=== PATIENT | male | born 1965 ===

== ENCOUNTER 2016-11-04 12:24 | Inpatient (IN) | payer BC, OTHER ==
[2016-11-04 12:24] VITALS: BMI 30.9
--- NOTE | 2016-11-04 13:12 | ED PDOC ---
Arrival/HPI - General Historian: Patient - History of Present Illness Time/Duration: Prior to Arrival Symptom Onset: Gradual Symptom Course: Unchanged <Jay Miller - Last Filed: 11/04/16 14:04> <Collins Christian - Last Filed: 11/04/16 15:01> - General Chief Complaint: Dizziness/Lightheaded Time Seen by Provider: 11/04/16 12:53 - History of Present Illness Narrative History of Present Illness (Text): 54 M with pmh of uncontrolled NIDDM2, Diabetic foot ulcers/p partial amputation , HTN presents with weakness and syncope. Pt states that for the past 2 days he had 2 episodes of passing out than falling forward and hitting his head, and once again when he was working. Pt states that he feels light headed right before he feels like passing out. He denies this occurring before. Pt also c/o rash that he has on his body and legs. No other complaints. Denies any lin, f/c, sob, cp, palpitations, abd pain, n/v/d. 11/04/16 14:04 (Jay Miller) Past Medical History - Provider Review Nursing Documentation Reviewed: Yes - Infectious Disease Hx of Infectious Diseases: None - Tetanus Immunization Tetanus Immunization: Up to Date - Cardiac Hx Hypertension: Yes - Pulmonary Hx Respiratory Disorders: No - Neurological Hx Neurological Disorder: No - HEENT Hx HEENT Disorder: No - Renal Hx Renal Disorder: No - Endocrine/Metabolic Hx Diabetes Mellitus Type 2: Yes - Hematological/Oncological Hx Blood Disorders: No - Integumentary Hx Dermatological Disorder: No - Musculoskeletal/Rheumatological Hx Musculoskeletal Disorders: No Hx Falls: No - Gastrointestinal Hx Gastrointestinal Disorders: No - Genitourinary/Gynecological Hx Genitourinary Disorders: No - Psychiatric Hx Psychophysiologic Disorder: No Hx Anxiety: No Hx Bipolar Disorder: No Hx Depression: No Hx Emotional Abuse: No Hx Hallucinations: No Hx Panic Disorder: No Hx Post Traumatic Stress Disorder: No Hx Psychosis: No Hx Physical Abuse: No Hx Schizophrenia: No Hx Sexual Abuse: No Hx Substance Use: No - Past Surgical History Past Surgical History: No Previous - Surgical History Hx Amputation: Yes (Left Great toe) - Anesthesia Hx Anesthesia: Yes Hx Anesthesia Reactions: No Hx Malignant Hyperthermia: No - Suicidal Assessment Feels Threatened In Home Enviroment: No <Jay Miller - Last Filed: 11/04/16 14:04> Family/Social History Family/Social History: Diabetes Smoking Status: Never Smoked Hx Alcohol Use: Yes Hx Substance Use: No Hx Substance Use Treatment: No <ValeriokingsJay - Last Filed: 11/04/16 14:04> Allergies/Home Meds <Suzanne Millera - Last Filed: 11/04/16 14:04> <JohnathanstevenCollins - Last Filed: 11/04/16 15:01> Allergies/Adverse Reactions: Allergies No Known Allergies Allergy (Verified 11/04/16 12:28) Review of Systems - Physician Review All systems were reviewed & negative as marked: Yes - Review of Systems Constitutional: Fatigue Respiratory: absent: SOB, Cough Cardiovascular: absent: Chest Pain, Palpitations Neurological: Dizziness <Jay Miller - Last Filed: 11/04/16 14:04> Physical Exam Temperature: Afebrile Pulse: Tachycardic Respiratory Rate: Normal Appearance: Positive for: Well-Appearing, Non-Toxic, Comfortable Pain Distress: None Mental Status: Positive for: Alert and Oriented X 3 Finger Stick Blood Glucose: 221 - Systems Exam Head: Present: Atraumatic, Normocephalic Pupils: Present: PERRL Extroacular Muscles: Present: EOMI Conjunctiva: Present: Normal Mouth: Present: Moist Mucous Membranes Neck: Present: Normal Range of Motion Respiratory/Chest: Present: Clear to Auscultation, Good Air Exchange. No: Respiratory Distress, Accessory Muscle Use, Wheezes, Rales Cardiovascular: Present: Regular Rate and Rhythm, Normal S1, S2, Tachycardic. No: Murmurs Abdomen: Present: Normal Bowel Sounds. No: Tenderness, Distention, Peritoneal Signs Upper Extremity: Present: Normal Inspection. No: Cyanosis, Edema Lower Extremity: Present: Normal Inspection. No: Edema Neurological: Present: GCS=15, CN II-XII Intact, Speech Normal Skin: Present: Warm, Dry, Rashes (diffuse pruritic rash over his body, some ecchymosis of his calfs ), Normal Color Psychiatric: Present: Alert, Oriented x 3, Normal Insight, Normal Concentration <RonaldobennettJay - Last Filed: 11/04/16 14:04> Medical Decision Making <Jay Miller - Last Filed: 11/04/16 14:04> <Collins Christian - Last Filed: 11/04/16 15:01> ED Course and Treatment: Impression: 54 M with pmh of uncontrolled NIDDM2, Diabetic foot ulcers/p partial amputation, HTN presents with weakness and syncope. Differential Diagnosis included but are not limited to: syncope / weakness / unlikely seizure Plan: - CBC, CMP, cardiac iso - Head CT - CXR - Reassess and disposition Progress Notes: EKG: Ordered, reviewed, and independently interpreted the EKG. Rate : 109 BPM Rhythm : sinus tachycardia Interpretation : Cannot rule out anterior infarct, age undetermined. Comparison : No previous EKG for comparison. 11/04/16 13:57 CXR - No active disease Head CT - No acute findings 11/04/16 14:04 (Jay Miller) 11/04/16 14:57 Patient seen and examined with resident Came up with treatment and disposition plan with resident 51-year-old male with history of diabetes, presents to the ER with multiple syncopal episodes. patient has no focal neurological deficits on examination. Case discussed with Dr. Bahena, agrees with telemetry observation for further workup Patient aware of and agrees with plan (Collins Christian) - Lab Interpretations Lab Results: 11/04/16 13:20 11/04/16 13:20 Lab Results 11/04/16 13:20: Sodium 134, Potassium 4.3, Chloride 102, Carbon Dioxide 26, Anion Gap 10, BUN 18, Creatinine 1.8 H, Est GFR ( Amer) 48, Est GFR (Non- Af Amer) 40, Random Glucose 238 H, Calcium 8.3 L, Total Bilirubin 0.9, AST 17, ALT 21, Alkaline Phosphatase 76, Lactate Dehydrogenase 487, Total Creatine Kinase 56, Troponin I 0.07 D, Total Protein 6.4, Albumin 3.1, Globulin 3.3, Albumin/Globulin Ratio 0.9 L 11/04/16 13:20: WBC 7.0, RBC 4.61, Hgb 14.0, Hct 40.0 L, MCV 86.8, MCH 30.4, MCHC 35.0, RDW 13.3, Plt Count 197, MPV 11.4 H, Gran % 79.9 H, Lymph % (Auto) 10.4 L, [place] % (Auto) 9.5 H, Eos % (Auto) 0.1 L, Baso % (Auto) 0.1, Gran # 5.62 , Lymph # 0.7 L, [place] # 0.7 H, Eos # 0.0, Baso # 0.01 - RAD Interpretation Radiology Orders: 11/04/16 13:07 HEAD W/O CONTRAST [CT] Stat CHEST PORTABLE [RAD] Stat - Medication Orders Current Medication Orders: Sodium Chloride (Sodium Chloride 0.9%) 1,000 mls @ 1,000 mls/hr IV .Q1H STA Stop: 11/04/16 15:51 Discontinued Medications Acetaminophen (Tylenol 325mg Tab) Confirm Administered Dose 975 mg .ROUTE .STK- MED ONE Stop: 11/04/16 14:38 Disposition/Present on Arrival - Present on Arrival History of DVT/PE: No History of Uncontrolled Diabetes: Yes Urinary Catheter: No History of Decub. Ulcer: No History Surgical Site Infection Following: None <Jay Miller - Last Filed: 11/04/16 14:04> - Present on Arrival Any Indicators Present on Arrival: No - Disposition Have Diagnosis and Disposition been Completed?: Yes Disposition Time: 15:00 Patient Plan: Observation <Collins Christian - Last Filed: 11/04/16 15:01> - Disposition Diagnosis: Syncope Disposition: HOSPITALIZED Patient Problems: Current Active Problems Problem Status Onset Syncope Acute Condition: FAIR Discharge Instructions (ExitCare): Syncope (ED)
[2016-11-04 13:26] LABS: ADD MANUAL DIFF? NO
[2016-11-04 13:35] LABS: BASO # 0.01 K/mm3 (0.0-2.0); BASO % 0.1 % (0.0-3.0); EOS % 0.1 % (1.5-5.0); GRAN # 5.62 (1.4-6.5); GRAN % 79.9 % (50.0-68.0); LYMPH # 0.7 (1.2-3.4); LYMPH % 10.4 % (22.0-35.0); MEAN CELL VOLUME 86.8 fL (80.0-105.0); MEAN CORPUSCULAR HEMOGLOBIN 30.4 pg (25.0-35.0); MEAN PLATELET VOLUME 11.4 fl (7.0-11.0); MONO # 0.7 (0.1-0.6); MONO % 9.5 % (1.0-6.0); PLATELET COUNT 197 10^3/uL (120.0-450.0); RED CELL DISTRIBUTION WIDTH 13.3 % (11.5-14.5)
--- NOTE | 2016-11-04 13:37 | CT ---
PROCEDURE: CT HEAD WITHOUT CONTRAST. HISTORY: syncope COMPARISON: None available. TECHNIQUE: Axial computed tomography images were obtained through the head/brain without intravenous contrast. Radiation dose: Total exam DLP = 677 mGy-cm. This CT exam was performed using one or more of the following dose reduction techniques: Automated exposure control, adjustment of the mA and/or kV according to patient size, and/or use of iterative reconstruction technique. FINDINGS: HEMORRHAGE: No intracranial hemorrhage. BRAIN: No mass effect or edema. No atrophy or chronic microvascular ischemic changes. VENTRICLES: Unremarkable. No hydrocephalus. CALVARIUM: There is a small scalp hematoma in the right parietal region PARANASAL SINUSES: Unremarkable as visualized. No significant inflammatory changes. MASTOID AIR CELLS: Unremarkable as visualized. No inflammatory changes. OTHER FINDINGS: None. IMPRESSION: No acute findings
--- NOTE | 2016-11-04 13:47 | RAD ---
HISTORY: near syncope COMPARISON: 07/10/2016 FINDINGS: LUNGS: No active pulmonary disease. PLEURA: No significant pleural effusion identified, no pneumothorax apparent. CARDIOVASCULAR: Normal. OSSEOUS STRUCTURES: No significant abnormalities. VISUALIZED UPPER ABDOMEN: Normal. OTHER FINDINGS: None. IMPRESSION: No active disease.
[2016-11-04 14:16] LABS: ALB/GLOB RATIO 0.9 (1.1-1.8); BILIRUBIN,TOTAL 0.9 mg/dL (0.2-1.3); CALCIUM 8.3 mg/dL (8.4-10.5); POTASSIUM 4.3 mmol/L (3.6-5.0); TOTAL PROTEIN 6.4 g/dL (5.8-8.3)
[2016-11-04 14:27] LABS: TROPONIN I 0.07 ng/mL
[2016-11-04] MEDS ORDERED: Sodium Chloride 0.9% 1,000 ML IV STA (14:52)
--- NOTE | 2016-11-04 15:43 | CP.PCM.HP ---
<Horacio Mahoney - Last Filed: 11/04/16 16:33> History of Present Illness - History of Present Illness History of Present Illness: 51M with pmh of DM and HTN presents to the ED with 3 episodes of lightheadedness and falls since Thursday, 3 days ago. He denies loss of consciousness, tongue biting or urinary incontinence. He also complains of a maculopapular rash over his body that started 2 weeks ago. There is no tunneling and many of the sores are at different levels of healing. In the ED, head CT, Chest Xray, and EKG did not have any signs of acute injury. Pt. also complained of nausea, vomiting, heart palpitations and joint pain in all his extremities. Pt. denies changes in vision/hearing, neck pain, chest pain, no GI/ symptoms or back pain PMHx: Uncontrolled NIDDM2, Diabetic foot ulcers/p partial amputation, HTN PSHx: Partial amputation L great toe SocialHx: Denies tob, drug use and socially drinks. 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 absent: Decreased Hearing Nose/Mouth/Throat: absent: Epistaxis, Nasal Congestion, Hoarsness, Sore Throat, Neck Pain - Cardiovascular Cardiovascular: absent: Chest Pain, Chest Pain at Rest, Dyspnea, Irregular Heart Rhythm - Respiratory Respiratory: absent: Cough, Dyspnea, Hemoptysis, Chest Congestion - Gastrointestinal Gastrointestinal: Nausea, Vomiting. absent: Abdominal Pain, Coffee Ground Emesis, Dysphagia, Fecal Incontinence, Heartburn - Genitourinary Genitourinary: absent: Difficulty Urinating, Dysuria, Hematuria, Pyuria, Urinary Incontinence - Musculoskeletal Musculoskeletal: Arthralgias. absent: Back Pain, Muscle Weakness, Numbness, Tingling - Integumentary Integumentary: Dry Skin, Rash, Skin Pain, Sores, Wounds. absent: Swelling - Neurological Neurological: absent: Abnormal Speech, Behavioral Changes, Dizziness, Loss of Vision, Syncope, Tingling, Weakness - Endocrine Endocrine: Cold Intolorance, Heat Intolorance, Palpitations. 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 Alcohol: Social Drugs: Denies Home Situation {Lives}: With Family - CARDIAC Hx Hypertension: Yes - PULMONARY Hx Respiratory Disorders: No - NEUROLOGICAL Hx Neurological Disorder: No - HEENT Hx HEENT Problems: No - RENAL Hx Chronic Kidney Disease: No - ENDOCRINE/METABOLIC Hx Diabetes Mellitus Type 2: Yes - HEMATOLOGICAL/ONCOLOGICAL Hx Blood Disorders: No - INTEGUMENTARY Hx Dermatological Problems: No - MUSCULOSKELETAL/RHEUMATOLOGICAL Hx Musculoskeletal Disorders: No Hx Falls: No - GASTROINTESTINAL Hx Gastrointestinal Disorders: No - GENITOURINARY/GYNECOLOGICAL Hx Genitourinary Disorders: No - PSYCHIATRIC Hx Psychophysiologic Disorder: No Hx Anxiety: No Hx Bipolar Disorder: No Hx Depression: No Hx Emotional Abuse: No Hx Hallucinations: No Hx Panic Symptoms: No Hx Post Traumatic Stress Disorder: No Hx Psychosis: No Hx Physical Abuse: No Hx Schizophrenia: No Hx Sexual Abuse: No Hx Substance Use: No - SURGICAL HISTORY Hx Amputation: Yes (Left Great toe) - ANESTHESIA Hx Anesthesia: Yes Hx Anesthesia Reactions: No Hx Malignant Hyperthermia: No Meds Allergies/Adverse Reactions: Allergies Allergy/AdvReac Type Severity Reaction Status Date / Time No Known Allergies Allergy Verified 11/04/16 12:28 Physical Exam - Constitutional Appears: No Acute Distress - Head Exam Head Exam: ATRAUMATIC, NORMAL INSPECTION - Eye Exam Eye Exam: EOMI, Normal appearance - ENT Exam ENT Exam: Mucous Membranes Moist - Neck Exam Neck exam: Positive for: Full Rom. Negative for: Lymphadenopathy, Thyromegaly - Respiratory Exam Respiratory Exam: Clear to Auscultation Bilateral, NORMAL BREATHING PATTERN. absent: Rhonchi, Wheezes - Cardiovascular Exam Cardiovascular Exam: REGULAR RHYTHM, +S1, +S2. absent: JVD - GI/Abdominal Exam GI & Abdominal Exam: Normal Bowel Sounds, Soft. absent: Tenderness - Extremities Exam Extremities exam: Positive for: full ROM, normal capillary refill, normal inspection, pedal pulses present. Negative for: joint swelling, pedal edema, tenderness - Back Exam Back exam: CVA tenderness (R) - Neurological Exam Neurological exam: Alert, CN II-XII Intact, Oriented x3 - Psychiatric Exam Psychiatric exam: Normal Affect, Normal Mood - Skin Skin Exam: Erythema, Petechiae, Rash Results - Vital Signs Recent Vital Signs: Last Vital Signs Temp 100 F H 11/04/16 12:26 Pulse 121 H 11/04/16 12:26 Resp 18 11/04/16 12:26 BP 120/77 11/04/16 12:26 Pulse Ox 100 11/04/16 12:26 - Labs Result Diagrams: 11/04/16 13:20 11/04/16 13:20 Assessment & Plan - Assessment and Plan (Free Text) Assessment: 51M with complaints of dizzyness with fall, no LOC and full body maculopapular rash. Plan: Maculopapular Rash -Permethrin Cream -Benedryl -ID Consult - Dr. Cota -Procalcitonin lvl ordered -Blood Culture x2 -Urine Culture -UA Dizzyness/Fall -Head CT - please see full report -no acute findings -IV NS 100ml/hr -Carotid Doppler -Echocardiogram from 07/08 Normal -EKG tachycardia, -Orthostatic vitals ordered -UDS -Alcohol lvl HTN -continue Lisinopril -monitor vitals Diabetes -ISS Medium -Accuchecks ACHS Right Flank Pain -CT abdomen -UA Mediastinal Pain -CT Chest PPX -DVT - Lovenox -Nausea - Zofran -GI Protonix - Date & Time Date: 11/04/16 Time: 16:00 <Breana Posey - Last Filed: 11/05/16 16:34> Results - Vital Signs Recent Vital Signs: Last Vital Signs Temp 99.3 F 11/05/16 08:00 Pulse 95 H 11/05/16 08:00 Resp 20 11/05/16 08:00 BP 141/85 11/05/16 08:00 Pulse Ox 95 11/05/16 08:00 - Labs Result Diagrams: 11/05/16 07:00 11/05/16 07:00 Labs: Laboratory Results - last 24 hr 11/04/16 11/04/16 11/04/16 16:20 16:20 18:10 WBC RBC Hgb Hct MCV MCH MCHC RDW Plt Count MPV Gran % Lymph % (Auto) [place] % (Auto) Eos % (Auto) Baso % (Auto) Gran # Lymph # [place] # Eos # Baso # Sodium Potassium Chloride Carbon Dioxide Anion Gap BUN Creatinine Est GFR ( Amer) Est GFR (Non-Af Amer) POC Glucose (mg/dL) Random Glucose Calcium Total Bilirubin AST ALT Alkaline Phosphatase Total Protein Albumin Globulin Albumin/Globulin Ratio Procalcitonin 0.35 Urine Color Urine Appearance Urine pH Ur Specific [place] Urine Protein Urine Glucose (UA) Urine Ketones Urine Blood Urine Nitrate Urine Bilirubin Urine Urobilinogen Ur Leukocyte Esterase Urine RBC Urine WBC Ur Epithelial Cells Urine Bacteria Urine Opiates Screen Negative Urine Methadone Screen Negative Ur Barbiturates Screen Negative Ur Phencyclidine Scrn Negative Ur Amphetamines Screen Negative U Benzodiazepines Scrn Negative U Oth Cocaine Metabols Positive H U Cannabinoids Screen Negative Alcohol, Quantitative < 10 11/04/16 11/04/16 11/05/16 18:10 20:59 07:00 WBC 6.3 RBC 4.25 Hgb 12.6 L Hct 36.8 L MCV 86.6 MCH 29.6 MCHC 34.2 RDW 13.1 Plt Count 201 MPV 11.3 H Gran % 70.3 H Lymph % (Auto) 15.1 L [place] % (Auto) 13.0 H Eos % (Auto) 1.4 L Baso % (Auto) 0.2 Gran # 4.43 Lymph # 1.0 L [place] # 0.8 H Eos # 0.1 Baso # 0.01 Sodium Potassium Chloride Carbon Dioxide Anion Gap BUN Creatinine Est GFR ( Amer) Est GFR (Non-Af Amer) POC Glucose (mg/dL) 280 H Random Glucose Calcium Total Bilirubin AST ALT Alkaline Phosphatase Total Protein Albumin Globulin Albumin/Globulin Ratio Procalcitonin Urine Color Yellow Urine Appearance Clear Urine pH 6.5 Ur Specific [place] 1.020 Urine Protein >=300 H Urine Glucose (UA) 250 H Urine Ketones Negative Urine Blood Moderate H Urine Nitrate Negative Urine Bilirubin Negative Urine Urobilinogen 1.0 H Ur Leukocyte Esterase Negative Urine RBC 1 - 3 Urine WBC 1 - 3 Ur Epithelial Cells 3 - 4 Urine Bacteria Neg Urine Opiates Screen Urine Methadone Screen Ur Barbiturates Screen Ur Phencyclidine Scrn Ur Amphetamines Screen U Benzodiazepines Scrn U Oth Cocaine Metabols U Cannabinoids Screen Alcohol, Quantitative 11/05/16 11/05/16 11/05/16 07:00 07:31 11:15 WBC RBC Hgb Hct MCV MCH MCHC RDW Plt Count MPV Gran % Lymph % (Auto) [place] % (Auto) Eos % (Auto) Baso % (Auto) Gran # Lymph # [place] # Eos # Baso # Sodium 136 Potassium 4.2 Chloride 103 Carbon Dioxide 26 Anion Gap 11 BUN 16 Creatinine 1.6 H Est GFR ( Amer) 55 Est GFR (Non-Af Amer) 45 POC Glucose (mg/dL) 211 H 278 H Random Glucose 212 H Calcium 7.9 L Total Bilirubin 0.6 AST 19 ALT 28 Alkaline Phosphatase 70 Total Protein 6.3 Albumin 2.9 L Globulin 3.4 Albumin/Globulin Ratio 0.9 L Procalcitonin Urine Color Urine Appearance Urine pH Ur Specific [place] Urine Protein Urine Glucose (UA) Urine Ketones Urine Blood Urine Nitrate Urine Bilirubin Urine Urobilinogen Ur Leukocyte Esterase Urine RBC Urine WBC Ur Epithelial Cells Urine Bacteria Urine Opiates Screen Urine Methadone Screen Ur Barbiturates Screen Ur Phencyclidine Scrn Ur Amphetamines Screen U Benzodiazepines Scrn U Oth Cocaine Metabols U Cannabinoids Screen Alcohol, Quantitative Attending/Attestation - Attestation I have personally seen and examined this patient.: Yes I have fully participated in the care of the patient.: Yes I have reviewed all pertinent clinical information: Yes Notes (Text): 11/05/16 16:29 attending note; Patient seen and examined With resident in ER. Patient is a 51 year old male with pmh of DM and HTN presents to the ED with 3 episodes of lightheadedness and falls since Thursday. no obvious injury noted. No tongue bite, no urinary incontinence no loss of consciousness. CT head is negative. Patient is complaining of subjective fevers and chills for the past 2 days. patient also a generalized itchy maculopapular rash for the past 2 weeks. permitherin treatment ordered. ID evaluation requested. dizziness can be secondary to poor by mouth intake. diabetes and hypertension; hold medications for now. restart tomorrow. acute renal failure; pre renal secondary to poor po intake. started on IVF. upon discharge the patient [place] [facility] [place]
[2016-11-04] MEDS: Sodium Chloride 0.9% 1,000 ML IV SCH (16:49)
[2016-11-04] MEDS: Insulin Reg-MEDIUM-Coverage SC SCH ×2 (16:50→21:29)
[2016-11-04] MEDS ORDERED: Insulin Regular 1 UNITS/0.01 ML ML ONE (16:53)
--- NOTE | 2016-11-04 17:49 | CT ---
PROCEDURE: CT Chest, Abdomen and Pelvis without intravenous contrast HISTORY: mediastinal pain on palpation, right flank pain COMPARISON: 04/07/2012. CT abdomen and pelvis TECHNIQUE: Unenhanced study. Neither oral nor intravenous contrast administered. This CT exam was performed using one or more of the following dose reduction techniques: Automated exposure control, adjustment of the mA and/or kV according to patient size, and/or use of iterative reconstruction technique. Total exam DLP = 1338.91 mGy-cm. FINDINGS: CT CHEST WITHOUT CONTRAST: LUNGS: Clear. No nodule, mass or consolidation. MEDIASTINUM: Unremarkable. Normal caliber aorta and pulmonary arterial trunk. Normal size heart. LYMPH NODES: Small bilateral axillary lymph nodes. No significant lymphadenopathy hilar and mediastinal regions. PLEURA: Unremarkable. No pneumothorax. No pleural fluid. BONES: Unremarkable. OTHER FINDINGS: None. CT ABDOMEN AND PELVIS: LIVER: Unremarkable. No gross lesion or ductal dilatation. GALLBLADDER AND BILE DUCTS: Unremarkable. PANCREAS: Unremarkable. No gross lesion or ductal dilatation. SPLEEN: Unremarkable. ADRENALS: Unremarkable. No mass. KIDNEYS AND URETERS: Unremarkable. No hydronephrosis. No solid mass. Right kidney: Mild dilatation of the collecting system and ureter. Left kidney: Moderate dilatation of left collecting system and ureter, a chronic finding identified on the prior CT scan 04/07/2012. VASCULATURE: Unremarkable. No aortic aneurysm. BOWEL: Unremarkable. No obstruction. No gross mural thickening. APPENDIX: Normal appendix. PERITONEUM: Unremarkable. No free fluid. No free air. LYMPH NODES: Unremarkable. No enlarged lymph nodes. BLADDER: Unremarkable. REPRODUCTIVE: Unremarkable. BONES: No acute fracture. OTHER FINDINGS: None. IMPRESSION: No acute findings related to/accounting for the clinical presentation. No significant interval change compared to the prior examination(s). Incidental finding(s): Bilateral hydronephrosis, hydroureter left greater than right unchanged compared to 04/07/2012.
[2016-11-04] MEDS: Permethrin 5% Cream(60 gm) TOP ONE ×2 (17:54→18:16)
[2016-11-04] MEDS ORDERED: cefTRIAXone 1 gm 1 GM/100 ML BAG IVPB STA (18:46)
[2016-11-04 18:54] LABS: PH,URINE 6.5 (4.7-8.0); URINE BILIRUBIN NEGATIVE (NEGATIVE); URINE BLOOD MODERATE (NEGATIVE); URINE GLUCOSE (UA) 250 mg/dL (NEGATIVE); URINE KETONE NEGATIVE (NEGATIVE); URINE LEUKOCYTE ESTERASE NEGATIVE Leu/uL (NEGATIVE); URINE PROTEIN >=300 mg/dL (<30 mg/dL)
[2016-11-04 19:13] LABS: URINE APPEARANCE CLEAR (CLEAR); URINE COLOR YELLOW (YELLOW)
[2016-11-04 19:27] LABS: URINE BACTERIA NEG (NEG)
--- NOTE | 2016-11-04 22:30 | CARD ---
APPROVED REPORT EKG Measurement Heart [id number] <Conclusion> Sinus tachycardia Cannot rule out Anterior infarct, age undetermined Abnormal ECG
[2016-11-04] MEDS ORDERED: Pneumococcal 23-Valent Vaccine IM ONE (22:40)
[2016-11-05] MEDS ORDERED: Pantoprazole 40 mg EC Tab PO SCH (06:30)
[2016-11-05 07:40] LABS: ADD MANUAL DIFF? NO
[2016-11-05 07:55] LABS: ALB/GLOB RATIO 0.9 (1.1-1.8); BILIRUBIN,TOTAL 0.6 mg/dL (0.2-1.3); CALCIUM 7.9 mg/dL (8.4-10.5); POTASSIUM 4.2 mmol/L (3.6-5.0); TOTAL PROTEIN 6.3 g/dL (5.8-8.3)
[2016-11-05 07:56] LABS: BASO # 0.01 K/mm3 (0.0-2.0); BASO % 0.2 % (0.0-3.0); EOS # 0.1 (0.0-0.7); EOS % 1.4 % (1.5-5.0); GRAN # 4.43 (1.4-6.5); GRAN % 70.3 % (50.0-68.0); HEMATOCRIT 36.8 % (42.0-52.0); LYMPH % 15.1 % (22.0-35.0); MEAN CELL VOLUME 86.6 fL (80.0-105.0); MEAN CORPUSCULAR HEMOGLOBIN 29.6 pg (25.0-35.0); MEAN CORPUSCULAR HGB CONC 34.2 g/dl (31.0-37.0); MEAN PLATELET VOLUME 11.3 fl (7.0-11.0); MONO # 0.8 (0.1-0.6); PLATELET COUNT 201 10^3/uL (120.0-450.0); RED CELL DISTRIBUTION WIDTH 13.1 % (11.5-14.5); WHITE BLOOD COUNT 6.3 10^3/ul (4.5-11.0)
[2016-11-05] MEDS: Insulin Reg-MEDIUM-Coverage SC SCH ×4 (08:45→21:48)
--- NOTE | 2016-11-05 09:56 | CP.PCM.PN ---
<Horacio Mahoney - Last Filed: 11/05/16 17:12> Subjective - Date & Time of Evaluation Date of Evaluation: 11/05/16 Time of Evaluation: 07:45 - Subjective Subjective: 51M with pmh of DM and HTN presented to the ED with 3 episodes of lightheadedness and falls since Thursday and maculopapular rash covering his body , sparing his face. Today, pt. states he is feelin better and that his rash is improving. 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 Pt. denies changes in vision/hearing, neck pain, chest pain, difficulty breathing, GI/ symptoms or back pain. Objective - Vital Signs/Intake and Output Vital Signs (last 24 hours): Temp Pulse Resp BP Pulse Ox 98.6 F 93 H 18 158/86 H 99 11/04/16 22:32 11/04/16 22:32 11/04/16 22:32 11/04/16 22:32 11/04/16 19:38 Intake and Output: 11/05/16 11/05/16 06:59 18:59 Intake Total 720 Balance 720 - Medications Medications: Current Medications Acetaminophen (Tylenol 325mg Tab) 650 mg PO Q6H PRN PRN Reason: Fever >100.4 F Diphenhydramine HCl (Benadryl) 25 mg PO Q6 PRN PRN Reason: Itching / Pruritus Last Admin: 11/04/16 18:39 Dose: 25 mg Enoxaparin Sodium (Lovenox) 40 mg SC DAILY [facility] PRN Reason: Protocol Sodium Chloride (Sodium Chloride 0.9%) 1,000 mls @ 100 mls/hr IV .Q10H [facility] Last Admin: 11/04/16 16:49 Dose: 100 mls/hr Insulin Human Regular (Humulin R Med) 0 units SC ACHS [facility] PRN Reason: Protocol Last Admin: 11/04/16 21:29 Dose: Not Given Ondansetron HCl (Zofran Inj) 4 mg IVP Q6 PRN PRN Reason: Nausea/Vomiting Pantoprazole Sodium (Protonix Ec Tab) 40 mg PO 0630 [facility] Last Admin: 11/05/16 06:32 Dose: Not Given - Labs Labs: 11/05/16 07:00 11/05/16 07:00 - Constitutional Appears: Non-toxic, No Acute Distress - Head Exam Head Exam: ATRAUMATIC, NORMOCEPHALIC - Eye Exam Eye Exam: EOMI - ENT Exam ENT Exam: Mucous Membranes Moist, Normal Exam - Respiratory Exam Respiratory Exam: Clear to Ausculation Bilateral, NORMAL BREATHING PATTERN - Cardiovascular Exam Cardiovascular Exam: REGULAR RHYTHM, +S1, +S2. absent: JVD - GI/Abdominal Exam GI & Abdominal Exam: Soft, Normal Bowel Sounds. absent: Tenderness - Extremities Exam Extremities Exam: Full ROM. absent: Joint Swelling, Pedal Edema, Tenderness - Back Exam Back Exam: CVA tenderness (R), rash noted. absent: CVA tenderness (L), paraspinal tenderness - Neurological Exam Neurological Exam: Alert, Awake, Oriented x3 - Psychiatric Exam Psychiatric exam: Normal Affect, Normal Mood - Skin Skin Exam: Erythema, Petechiae, Rash, Urticaria Assessment and Plan - Assessment and Plan (Free Text) Assessment: 51M with complaints of dizziness with fall, no LOC and full body maculopapular rash, sparing his face. Plan: Maculopapular Rash -Permethrin Cream -Benedryl -ID Consult - Dr. Cota -help appreciated -topical steroids -cont current mgmt -Procalcitonin .35 normal -Blood Culture x2 received -Urine Culture received Dizziness/Fall -Head CT - please see full report -no acute findings -IV NS 100ml/hr -Carotid Doppler - ordered -Echocardiogram from 07/08 Normal -EKG tachycardia, -Troponin neg x1 -Orthostatic vitals negative -UDS postive for cocaine, pt. still denies -HIV ordered -Alcohol lvl <10, negative HTN -continue Lisinopril -monitor vitals Diabetes -ISS Medium -Accuchecks ACHS Right Flank Pain -CT abdomen - please see full report -Bilateral hydronephrosis L > R, unchanged from 2012 CT -UA positive for protein, glucose, blood, and urobilnogen -Urology Consult - Dr. Zeke Sparrow -recs appreciated Mediastinal Pain -CT Chest - please see full report -no acute pathology seen Headache - Tylenol prn PPX -DVT - Lovenox -Nausea - Zofran -GI Protonix -PT Eval/Tx <Michael Poseya - Last Filed: 11/05/16 17:29> Objective - Vital Signs/Intake and Output Vital Signs (last 24 hours): Temp Pulse Resp BP Pulse Ox 99.3 F 95 H 20 141/85 95 11/05/16 08:00 11/05/16 17:01 11/05/16 08:00 11/05/16 17:01 11/05/16 08:00 Intake and Output: 11/05/16 11/05/16 06:59 18:59 Intake Total 720 800 Output Total 300 Balance 720 500 - Medications Medications: Current Medications Acetaminophen (Tylenol 325mg Tab) 650 mg PO Q6H PRN PRN Reason: Fever >100.4 F Amlodipine Besylate (Norvasc) 5 mg PO DAILY [facility] Last Admin: 11/05/16 17:01 Dose: 5 mg Diphenhydramine HCl (Benadryl) 25 mg PO Q6 PRN PRN Reason: Itching / Pruritus Last Admin: 11/04/16 18:39 Dose: 25 mg Enoxaparin Sodium (Lovenox) 40 mg SC DAILY [facility] PRN Reason: Protocol Last Admin: 11/05/16 11:47 Dose: 40 mg Glipizide (Glucotrol) 10 mg PO DAILY [facility] Last Admin: 11/05/16 17:00 Dose: 10 mg Hydrocortisone (Cortizone 0.5%) 0 ea TOP BID [facility] Last Admin: 11/05/16 13:22 Dose: 1 applic Sodium Chloride (Sodium Chloride 0.9%) 1,000 mls @ 100 mls/hr IV .Q10H [facility] Last Admin: 11/05/16 17:10 Dose: 100 mls/hr Insulin Human Regular (Humulin R Med) 0 units SC ACHS [facility] PRN Reason: Protocol Last Admin: 11/05/16 17:00 Dose: 5 units Meclizine HCl (Antivert) 12.5 mg PO DAILY [facility] Last Admin: 11/05/16 13:23 Dose: 12.5 mg Metformin HCl (Glucophage) 1,000 mg PO BID [facility] Ondansetron HCl (Zofran Inj) 4 mg IVP Q6 PRN PRN Reason: Nausea/Vomiting Pantoprazole Sodium (Protonix Ec Tab) 40 mg PO 0630 [facility] Last Admin: 11/05/16 06:32 Dose: Not Given - Labs Labs: 11/05/16 07:00 11/05/16 07:00 Attending/Attestation - Attestation I have personally seen and examined this patient.: Yes I have fully participated in the care of the patient.: Yes I have reviewed all pertinent clinical information, including history, physical exam and plan: Yes Notes (Text): 11/05/16 17:25 Attending note; Patient seen and examined With resident. Patient is a 51 year old male with pmh of DM and HTN presents to the ED with 3 episodes of lightheadedness and falls since Thursday. dizziness is improving. no orthostatic blood pressure changes noted. physical therapy evaluation requested. patient also a generalized itchy maculopapular rash for the past 2 weeks. rash is improving. Continue topical steroids. permitherin treatment given. ID evaluation appreciated. blood cultures negative so far. diabetes and hypertension; continue home medications. acute renal failure; improved significantly. started on IVF. CT abdomen and pelvis showed chronic hydronephrosis unchanged. Will refer to urology. upon discharge the patient will follow-up with [facility] [place] clinic. 11/05/16 17:28
[2016-11-05] MEDS ORDERED: Enoxaparin 40 mg Syringe SC SCH (10:00)
[2016-11-05 10:21] VITALS: BP 141/85; PULSE 95; RESP 20
[2016-11-05] MEDS: Hydrocortisone 0.5% Cream(30 gm) TOP SCH ×2 (13:22→21:48)
[2016-11-05] MEDS: Sodium Chloride 0.9% 1,000 ML IV SCH (17:10)
[2016-11-05 17:45] VITALS: TEMP 98.4; O2SAT 97
--- NOTE | 2016-11-06 15:50 | CON ---
DATE: 11/06/2016 In 577, bed 2, [facility]. The patient was seen earlier this morning. REASON FOR CONSULTATION: Rash all over the body. HISTORY OF PRESENT ILLNESS: The patient is a 51-year-old male who has history of chronic bilateral h ydronephrosis who comes in complaining of lightheadedness for the past 3 days as well as a pruritic m aculopapular rash on different parts of his trunk and extremities, which started about a couple of we eks ago and continues to bother him. According to the patient, the patient works as someone who [employer] for different buildings in [place] as well as in [facility], but otherwise has not traveled outside of these areas in the past 3 months. He also denies any animal contacts, has not b een swimming in [place] or been camping in wooded areas. The patient lives with his and 2 daught ers and apparently they are well and without any rash. The patient also denies fever or chills. No blurring of vision, no headache or dizziness. No nausea or vomiting. No odynophagia or dysphagia. No sore throat, no rhinorrhea, no cough, no shortness of breath, no chest pain, no abdominal pain, no diarrhea, no dysuria, no hematuria. Because of the rash, infectious disease consult was requested t o further evaluate . REVIEW OF SYSTEMS: As per history of present illness. PAST MEDICAL HISTORY: As per history of present illness. FAMILY MEDICAL HISTORY: Noncontributory. PERSONAL AND SOCIAL HISTORY: The patient denies alcohol abuse or illicit drug use. OBJECTIVE: VITAL SIGNS: The patient is afebrile, blood pressure 130/80, respiratory rate of 16, heart rate of 8 4. HEAD AND NECK: Normocephalic, atraumatic. No meningismus present. HEART: S1 and S2 are normal. LUNGS: Decreased breath sounds bilaterally without any rales. ABDOMEN: Soft, nontender, nondistended. SKIN: There are noted areas of excoriated papules and areas of patchy maculopapular rash over the tr unk and extremities, not very confluent. Although erythematous, not brick red. LABORATORIES: We are able to review the labs on the patient from yesterday. WBC count of 6.3, plate lets of 201. BUN is 15, creatinine is 1.6. CAT scan of the abdomen and pelvis shows chronic bilateral hydronephrosis. ASSESSMENT: We have a 51-year-old male with a history of chronic bilateral hydronephrosis, coming in with a maculopapular rash. We need to rule out scabies in this patient as well as rule out irritant dermatitis. PLAN: We have discussed this with the medical team and the patient has been given permethrin cream y esterday with some clinical improvement. We have also recommended the patient to be on topical stero ids and oral antihistamines for this patient and we will continue to monitor this patient while the p [facility] is in the hospital. Shailesh Cota M.D. cc: [id number] TT: 11/06/2016 15:50:33 Confirmation # [id number] Dictation # [id number]
--- NOTE | 2016-11-06 17:07 | US ---
PROCEDURE: Bilateral carotid artery duplex ultrasound HISTORY: Carotid stenosis syncope PHYSICIAN(S): Jamil Gibbs MD. TECHNIQUE: Duplex sonography and color-flow Doppler were used to evaluate the carotid bifurcations and limited segments of the vertebral arteries bilaterally. FINDINGS: There is mild smooth heterogeneous plaque noted at the carotid bifurcations bilaterally. The peak systolic velocity in the proximal right internal carotid artery is 84 cm/sec. This corresponds to a 20 to 39% proximal right ICA stenosis. Normal systolic velocities are noted in the proximal right external carotid artery. There is antegrade flow in the right vertebral artery. The peak systolic velocity in the proximal left internal carotid artery is 89 cm/sec. This corresponds to a 20 to 39% proximal left ICA stenosis. Normal systolic velocities are noted in the proximal left external carotid artery. There is antegrade flow in the left vertebral artery. IMPRESSION: 1. Bilateral 20-39% proximal ICA stenoses. 2. Antegrade flow in both vertebral arteries.
--- NOTE | 2016-11-06 21:18 | CP.PCM.DIS ---
<Horacio Mahoney - Last Filed: 11/07/16 23:26> Provider - Provider Date of Admission: 11/04/16 15:00 Attending physician: Breana Posey MD Primary care physician: NO PRIMARY CARE PROVIDER Time Spent in preparation of Discharge (in minutes): 35 Hospital Course - Lab Results Lab Results: Micro Results 11/04/16 18:10 Urine Urine Culture - Final No Growth (<1,000 CFU/ML) 11/04/16 16:30 Blood Blood Culture - Preliminary NO GROWTH AFTER 48 HOURS 11/04/16 16:20 Blood Blood Culture - Preliminary NO GROWTH AFTER 48 HOURS Most Recent Lab Values WBC 6.3 10^3/ul (4.5-11.0) 11/05/16 07:00 RBC 4.25 10^6/uL (3.5-6.1) 11/05/16 07:00 Hgb 12.6 gm/dL (14.0-18.0) L 11/05/16 07:00 Hct 36.8 % (42.0-52.0) L 11/05/16 07:00 MCV 86.6 fL (80.0-105.0) 11/05/16 07:00 MCH 29.6 pg (25.0-35.0) 11/05/16 07:00 MCHC 34.2 g/dl (31.0-37.0) 11/05/16 07:00 RDW 13.1 % (11.5-14.5) 11/05/16 07:00 Plt Count 201 10^3/uL (120.0-450.0) 11/05/16 07:00 MPV 11.3 fl (7.0-11.0) H 11/05/16 07:00 Gran % 70.3 % (50.0-68.0) H 11/05/16 07:00 Lymph % (Auto) 15.1 % (22.0-35.0) L 11/05/16 07:00 Fleming % (Auto) 13.0 % (1.0-6.0) H 11/05/16 07:00 Eos % (Auto) 1.4 % (1.5-5.0) L 11/05/16 07:00 Baso % (Auto) 0.2 % (0.0-3.0) 11/05/16 07:00 Gran # 4.43 (1.4-6.5) 11/05/16 07:00 Lymph # 1.0 (1.2-3.4) L 11/05/16 07:00 Fleming # 0.8 (0.1-0.6) H 11/05/16 07:00 Eos # 0.1 (0.0-0.7) 11/05/16 07:00 Baso # 0.01 K/mm3 (0.0-2.0) 11/05/16 07:00 Sodium 136 mmol/L (132-148) 11/05/16 07:00 Potassium 4.2 mmol/L (3.6-5.0) 11/05/16 07:00 Chloride 103 mmol/L (98-107) 11/05/16 07:00 Carbon Dioxide 26 mmol/L (21-33) 11/05/16 07:00 Anion Gap 11 (10-20) 11/05/16 07:00 BUN 16 mg/dL (7-21) 11/05/16 07:00 Creatinine 1.6 mg/dL (0.5-1.4) H 11/05/16 07:00 Est GFR ( Amer) 55 11/05/16 07:00 Est GFR (Non-Af Amer) 45 11/05/16 07:00 POC Glucose (mg/dL) 104 mg/dL (65-110) 11/06/16 07:46 Random Glucose 212 mg/dL (70-110) H 11/05/16 07:00 Calcium 7.9 mg/dL (8.4-10.5) L 11/05/16 07:00 Total Bilirubin 0.6 mg/dL (0.2-1.3) 11/05/16 07:00 AST 19 U/L (15-59) 11/05/16 07:00 ALT 28 U/L (7-56) 11/05/16 07:00 Alkaline Phosphatase 70 U/L (38-133) 11/05/16 07:00 Lactate Dehydrogenase 487 U/L (333-699) 11/04/16 13:20 Total Creatine Kinase 56 U/L (35-230) 11/04/16 13:20 Troponin I 0.07 ng/mL D 11/04/16 13:20 Total Protein 6.3 g/dL (5.8-8.3) 11/05/16 07:00 Albumin 2.9 g/dL (3.0-4.8) L 11/05/16 07:00 Globulin 3.4 gm/dL 11/05/16 07:00 Albumin/Globulin Ratio 0.9 (1.1-1.8) L 11/05/16 07:00 Procalcitonin 0.35 NG/ML (0.19-0.49) 11/04/16 16:20 Urine Color Yellow (YELLOW) 11/04/16 18:10 Urine Appearance Clear (CLEAR) 11/04/16 18:10 Urine pH 6.5 (4.7-8.0) 11/04/16 18:10 Ur Specific [place] 1.020 (1.005-1.035) 11/04/16 18:10 Urine Protein >=300 mg/dL (<30 mg/dL) H 11/04/16 18:10 Urine Glucose (UA) 250 mg/dL (NEGATIVE) H 11/04/16 18:10 Urine Ketones Negative mg/dL (NEGATIVE) 11/04/16 18:10 Urine Blood Moderate (NEGATIVE) H 11/04/16 18:10 Urine Nitrate Negative (NEGATIVE) 11/04/16 18:10 Urine Bilirubin Negative (NEGATIVE) 11/04/16 18:10 Urine Urobilinogen 1.0 E.U./dL (<1 E.U./dL) H 11/04/16 18:10 Ur Leukocyte Esterase Negative Lamin/uL (NEGATIVE) 11/04/16 18:10 Urine RBC 1 - 3 /hpf (0-2) 11/04/16 18:10 Urine WBC 1 - 3 /hpf (0-6) 11/04/16 18:10 Ur Epithelial Cells 3 - 4 /hpf (0-5) 11/04/16 18:10 Urine Bacteria Neg (NEG) 11/04/16 18:10 Urine Opiates Screen Negative (NEGATIVE) 11/04/16 18:10 Urine Methadone Screen Negative (NEGATIVE) 11/04/16 18:10 Ur Barbiturates Screen Negative (NEGATIVE) 11/04/16 18:10 Ur Phencyclidine Scrn Negative (NEGATIVE) 11/04/16 18:10 Ur Amphetamines Screen Negative (NEGATIVE) 11/04/16 18:10 U Benzodiazepines Scrn Negative (NEGATIVE) 11/04/16 18:10 U Oth Cocaine Metabols Positive (NEGATIVE) H 11/04/16 18:10 U Cannabinoids Screen Negative (NEGATIVE) 11/04/16 18:10 Alcohol, Quantitative < 10 mg/dL (0-10) 11/04/16 16:20 - Hospital Course Hospital Course: 51M with pmh of DM and HTN presents to the ED with 3 episodes of lightheadedness and falls for 3 days and maculopapular rash for 3 weeks. In the ED, head CT, Chest Xray, and EKG did not have any signs of acute injury. He also received IV fluids and was started on him home medications for DM and HTN. For his rash pt. was given Permethrin cream, Benedryl and topical steroids. Final urine and blood cultures were negative. After several days his rash improved markedly. For his dizziness, he was prescribed Meclizine, which helped. On day of discharge, pt. was ambulating well with no dizziness or gait instability. This is a brief account of his stay. For more information, please consult his chart. - Date & Time of H&P Date of H&P: 11/06/16 Time of H&P: 08:45 Discharge Exam - Head Exam Head Exam: ATRAUMATIC, NORMOCEPHALIC - Eye Exam Eye Exam: EOMI, Normal appearance - ENT Exam ENT Exam: Mucous Membranes Moist - Neck Exam Neck exam: Full Rom - Respiratory Exam Respiratory Exam: Clear to PA & Lateral, NORMAL BREATHING PATTERN, UNREMARKABLE - Cardiovascular Exam Cardiovascular Exam: REGULAR RHYTHM, +S1, +S2. absent: JVD - GI/Abdominal Exam GI & Abdominal Exam: Normal Bowel Sounds, Unremarkable - Rectal Exam Rectal Exam: NORMAL INSPECTION - Extremities Exam Extremities exam: full ROM, pedal pulses present - Neurological Exam Neurological exam: Alert, CN II-XII Intact, Normal Gait, Oriented x3, Reflexes Normal - Psychiatric Exam Psychiatric exam: Normal Affect, Normal Mood - Skin Skin Exam: Dry, Intact, Normal Color, Warm Discharge Plan - Follow Up Plan Condition: FAIR Disposition: HOME/ ROUTINE Additional Instructions: Pt. is medically stable for discharge. Please follow up with your primary care doctor within 1 week. Please follow up with your urologist, Dr. Paul Sparrow within 1 week. Thank you for allowing us to take part in your care. Referrals: PCP,NO [Primary Care Provider] - Minesh Sparrow MD [Staff Provider] - Shailesh Cota MD [Staff Provider] - <Breana Posey - Last Filed: 11/08/16 13:41> Provider - Provider Date of Admission: 11/04/16 16:19 Attending physician: Breana Posey MD Primary care physician: CECE PRIMARY CARE PROVIDER Hospital Course - Lab Results Lab Results: Micro Results 11/04/16 16:30 Blood Blood Culture - Preliminary NO GROWTH AFTER 3 DAYS 11/04/16 16:20 Blood Blood Culture - Preliminary NO GROWTH AFTER 3 DAYS 11/04/16 18:10 Urine Urine Culture - Final No Growth (<1,000 CFU/ML) Most Recent Lab Values WBC 6.9 10^3/ul (4.5-11.0) 11/06/16 07:00 RBC 4.18 10^6/uL (3.5-6.1) 11/06/16 07:00 Hgb 12.5 gm/dL (14.0-18.0) L 11/06/16 07:00 Hct 36.0 % (42.0-52.0) L 11/06/16 07:00 MCV 86.1 fL (80.0-105.0) 11/06/16 07:00 MCH 29.9 pg (25.0-35.0) 11/06/16 07:00 MCHC 34.7 g/dl (31.0-37.0) 11/06/16 07:00 RDW 13.1 % (11.5-14.5) 11/06/16 07:00 Plt Count 238 10^3/uL (120.0-450.0) 11/06/16 07:00 MPV 11.7 fl (7.0-11.0) H 11/06/16 07:00 Gran % 70.3 % (50.0-68.0) H 11/05/16 07:00 Lymph % (Auto) 15.1 % (22.0-35.0) L 11/05/16 07:00 Fleming % (Auto) 13.0 % (1.0-6.0) H 11/05/16 07:00 Eos % (Auto) 1.4 % (1.5-5.0) L 11/05/16 07:00 Baso % (Auto) 0.2 % (0.0-3.0) 11/05/16 07:00 Gran # 4.43 (1.4-6.5) 11/05/16 07:00 Lymph # 1.0 (1.2-3.4) L 11/05/16 07:00 Fleming # 0.8 (0.1-0.6) H 11/05/16 07:00 Eos # 0.1 (0.0-0.7) 11/05/16 07:00 Baso # 0.01 K/mm3 (0.0-2.0) 11/05/16 07:00 Sodium 136 mmol/L (132-148) 11/05/16 07:00 Potassium 4.2 mmol/L (3.6-5.0) 11/05/16 07:00 Chloride 103 mmol/L (98-107) 11/05/16 07:00 Carbon Dioxide 26 mmol/L (21-33) 11/05/16 07:00 Anion Gap 11 (10-20) 11/05/16 07:00 BUN 16 mg/dL (7-21) 11/05/16 07:00 Creatinine 1.6 mg/dL (0.5-1.4) H 11/05/16 07:00 Est GFR ( Amer) 55 11/05/16 07:00 Est GFR (Non-Af Amer) 45 11/05/16 07:00 POC Glucose (mg/dL) 104 mg/dL (65-110) 11/06/16 07:46 Random Glucose 212 mg/dL (70-110) H 11/05/16 07:00 Calcium 7.9 mg/dL (8.4-10.5) L 11/05/16 07:00 Total Bilirubin 0.6 mg/dL (0.2-1.3) 11/05/16 07:00 AST 19 U/L (15-59) 11/05/16 07:00 ALT 28 U/L (7-56) 11/05/16 07:00 Alkaline Phosphatase 70 U/L (38-133) 11/05/16 07:00 Lactate Dehydrogenase 487 U/L (333-699) 11/04/16 13:20 Total Creatine Kinase 56 U/L (35-230) 11/04/16 13:20 Troponin I 0.07 ng/mL D 11/04/16 13:20 Total Protein 6.3 g/dL (5.8-8.3) 11/05/16 07:00 Albumin 2.9 g/dL (3.0-4.8) L 11/05/16 07:00 Globulin 3.4 gm/dL 11/05/16 07:00 Albumin/Globulin Ratio 0.9 (1.1-1.8) L 11/05/16 07:00 Procalcitonin 0.35 NG/ML (0.19-0.49) 11/04/16 16:20 Urine Color Yellow (YELLOW) 11/04/16 18:10 Urine Appearance Clear (CLEAR) 11/04/16 18:10 Urine pH 6.5 (4.7-8.0) 11/04/16 18:10 Ur Specific [place] 1.020 (1.005-1.035) 11/04/16 18:10 Urine Protein >=300 mg/dL (<30 mg/dL) H 11/04/16 18:10 Urine Glucose (UA) 250 mg/dL (NEGATIVE) H 11/04/16 18:10 Urine Ketones Negative mg/dL (NEGATIVE) 11/04/16 18:10 Urine Blood Moderate (NEGATIVE) H 11/04/16 18:10 Urine Nitrate Negative (NEGATIVE) 11/04/16 18:10 Urine Bilirubin Negative (NEGATIVE) 11/04/16 18:10 Urine Urobilinogen 1.0 E.U./dL (<1 E.U./dL) H 11/04/16 18:10 Ur Leukocyte Esterase Negative Lamin/uL (NEGATIVE) 11/04/16 18:10 Urine RBC 1 - 3 /hpf (0-2) 11/04/16 18:10 Urine WBC 1 - 3 /hpf (0-6) 11/04/16 18:10 Ur Epithelial Cells 3 - 4 /hpf (0-5) 11/04/16 18:10 Urine Bacteria Neg (NEG) 11/04/16 18:10 Urine Opiates Screen Negative (NEGATIVE) 11/04/16 18:10 Urine Methadone Screen Negative (NEGATIVE) 11/04/16 18:10 Ur Barbiturates Screen Negative (NEGATIVE) 11/04/16 18:10 Ur Phencyclidine Scrn Negative (NEGATIVE) 11/04/16 18:10 Ur Amphetamines Screen Negative (NEGATIVE) 11/04/16 18:10 U Benzodiazepines Scrn Negative (NEGATIVE) 11/04/16 18:10 U Oth Cocaine Metabols Positive (NEGATIVE) H 11/04/16 18:10 U Cannabinoids Screen Negative (NEGATIVE) 11/04/16 18:10 Alcohol, Quantitative < 10 mg/dL (0-10) 11/04/16 16:20 Attending/Attestation - Attestation I have personally seen and examined this patient.: Yes I have fully participated in the care of the patient.: Yes I have reviewed all pertinent clinical information, including history, physical exam and plan: Yes Notes (Text): 11/08/16 13:40 Attending note; Patient seen and examined With resident. Patient is a 51 year old male with pmh of DM and HTN presents to the ED with 3 episodes of lightheadedness and falls since Thursday. dizziness is improving. no orthostatic blood pressure changes noted. patient also a generalized itchy maculopapular rash for the past 2 weeks. rash is improving. Continue topical steroids. permitherin treatment given. ID evaluation appreciated. blood cultures negative so far. diabetes and hypertension; continue home medications. acute renal failure; improved significantly. started on IVF. CT abdomen and pelvis showed chronic hydronephrosis unchanged. Will refer to urology. upon discharge the patient will follow-up with [facility] [place] clinic. Diagnosis; Rash Diabetes Hypertension Acute renal failure Cocaine abuse
[2016-11-07 12:41] LABS: MEAN CELL VOLUME 86.1 fL (80.0-105.0); MEAN CORPUSCULAR HEMOGLOBIN 29.9 pg (25.0-35.0); MEAN CORPUSCULAR HGB CONC 34.7 g/dl (31.0-37.0); MEAN PLATELET VOLUME 11.7 fl (7.0-11.0); RED CELL DISTRIBUTION WIDTH 13.1 % (11.5-14.5); WHITE BLOOD COUNT 6.9 10^3/ul (4.5-11.0)
[2016-11-11 03:26] LABS: BLOOD UREA NITROGEN 14 mg/dL (7-21); GLUCOSE,RANDOM 291 mg/dL (70-110)
[2016-11-11 03:27] LABS: ALB/GLOB RATIO 0.8 (1.1-1.8); ALKALINE PHOSPHATASE 79 U/L (38-133); ALT/SGPT 23 U/L (7-56); AST/SGOT 22 U/L (15-59); BILIRUBIN,TOTAL 0.6 mg/dL (0.2-1.3); CARBON DIOXIDE 24 mmol/L (21-33); CHLORIDE 104 mmol/L (98-107); GFR AFRICAN-AMERICAN > 60; POTASSIUM 4.3 mmol/L (3.6-5.0); SODIUM 135 mmol/L (132-148); TOTAL PROTEIN 6.6 g/dL (5.8-8.3)
== END 2016-11-06 13:39 | disposition home or self-care (01) | DRG 294 ==
LOC: ED 12:24 → ERH 15:00 → OBSVTOIN 16:19 → ERH 17:08 → 5RSO 17:36
PROVIDERS: ADMIT Internal Medicine; ATTEND Internal Medicine
DX: E11.65 Type 2 diabetes mellitus with hyperglycemia (principal); E11.621 Type 2 diabetes mellitus with foot ulcer; L97.509 Non-pressure chronic ulcer of other part of unspecified foot with unspecified severity; N13.30 Unspecified hydronephrosis; I10 Essential (primary) hypertension; R53.1 Weakness; R55 Syncope and collapse; R21 Rash and other nonspecific skin eruption; Z82.49 Family history of ischemic heart disease and other diseases of the circulatory system; Z83.3 Family history of diabetes mellitus; Z87.891 Personal history of nicotine dependence; R00.0 Tachycardia, unspecified; Z91.81 History of falling; Z89.412 Acquired absence of left great toe; R10.9 Unspecified abdominal pain; R07.89 Other chest pain; R42 Dizziness and giddiness

== ENCOUNTER 2016-11-07 11:13 | Inpatient (IN) | payer OTHER ==
[2016-11-07 11:14] VITALS: BMI 30.9
[2016-11-07] MEDS ORDERED: Ciprofloxacin 400mg/200ml D5W 400 MG/200 ML BAG IVPB STA (12:21)
[2016-11-07] MEDS ORDERED: Vancomycin 1gm in NS 250ml 1 GM/250 ML BAG IVPB STA (12:21)
[2016-11-07] MEDS ORDERED: TDAP Vaccine 0.5 mL Syr IM ONE (12:22)
[2016-11-07 13:51] LABS: ADD MANUAL DIFF? NO
[2016-11-07 13:55] LABS: BASO # 0.01 K/mm3 (0.0-2.0); BASO % 0.2 % (0.0-3.0); EOS # 0.2 (0.0-0.7); EOS % 3.2 % (1.5-5.0); GRAN % 70.2 % (50.0-68.0); HEMATOCRIT 36.2 % (42.0-52.0); LYMPH # 1.2 (1.2-3.4); LYMPH % 20.4 % (22.0-35.0); MEAN CELL VOLUME 85.6 fL (80.0-105.0); MEAN CORPUSCULAR HEMOGLOBIN 30.3 pg (25.0-35.0); MEAN CORPUSCULAR HGB CONC 35.4 g/dl (31.0-37.0); MEAN PLATELET VOLUME 11.2 fl (7.0-11.0); MONO # 0.3 (0.1-0.6); PLATELET COUNT 263 10^3/uL (120.0-450.0); RED CELL DISTRIBUTION WIDTH 12.9 % (11.5-14.5); WHITE BLOOD COUNT 5.7 10^3/ul (4.5-11.0)
[2016-11-07 14:04] LABS: ALB/GLOB RATIO 0.8 (1.1-1.8); ALKALINE PHOSPHATASE 80 U/L (38-133); ALT/SGPT 28 U/L (7-56); AST/SGOT 26 U/L (15-59); BILIRUBIN,TOTAL 0.7 mg/dL (0.2-1.3); BLOOD UREA NITROGEN 12 mg/dL (7-21); CALCIUM 8.4 mg/dL (8.4-10.5); CARBON DIOXIDE 24 mmol/L (21-33); CHLORIDE 105 mmol/L (98-107); GFR AFRICAN-AMERICAN > 60; GLUCOSE,RANDOM 231 mg/dL (70-110); POTASSIUM 4.5 mmol/L (3.6-5.0); SODIUM 139 mmol/L (132-148); TOTAL PROTEIN 7.1 g/dL (5.8-8.3)
--- NOTE | 2016-11-07 14:12 | RAD ---
PROCEDURE: Radiographs of the left great toe. Clinical history diabetic foot ulcer TECHNIQUE:: AP radiograph of the left foot, with oblique and lateral view of the left great toe. COMPARISON: 01/08/2015 FINDINGS: BONES: No significant changes with respect to the 1st. No radiographic findings to suggest acute osteomyelitis. JOINTS: Normal. SOFT TISSUES: Increasing tissue swelling 1st digit. Radiopaque foreign body medially interposed between the 1st and 2nd proximal phalanges. This likely represents a small needle fragment. The finding was not apparent previously. Ulcer best seen on the lateral view plantar aspect of the foot. OTHER FINDINGS: None. IMPRESSION: Radiographic findings to suggest acute osteomyelitis. Small radiopaque foreign body/needle fragment plantar aspect left adjacent to the 1st metatarsal. Adjacent small ulcer plantar aspect of the left foot.
[2016-11-07 14:20] LABS: INR 0.97 (0.93-1.08); PARTIAL THROMBOPLASTIN TIME 29.6 Seconds (23.7-30.8)
--- NOTE | 2016-11-07 15:39 | ED PDOC ---
Arrival/HPI - General Chief Complaint: Lower Extremity Problem/Injury Time Seen by Provider: 11/07/16 11:57 Historian: Patient - History of Present Illness Narrative History of Present Illness (Text): 11/07/16 15:34 Patient with past medical history of diabetes and hypertension, presents to the emergency room for redness, swelling, pain and an ulcer to the left great toe which she noticed yesterday when he removed his sock and a piece of the skin had been ripped off of his toe. Patient states that he was discharged from the hospital yesterday for unknown diagnosis however he states that he had mentioned to the doctor that evaluated him that he felt feverish and he was given antibiotics but he doesn't know why. He further adds that he was admitted 4 days ago - may be due to his blood pressure or his diabetes. Patient states that he has no PMD and that he follows up at the clinic, he also asked that he has never seen a network support manager in the past. He states that during his admission at the hospital his toe was not red, swollen or painful. Otherwise: (-) fever, (-) chills, (-) leg pain/swelling, (-) discharge, (-) trauma, (-) N/V/D, (-) abdominal pain, (-) urinary symptoms. PMD clinic Past Medical History - Provider Review Nursing Documentation Reviewed: Yes - Infectious Disease Hx of Infectious Diseases: None - Tetanus Immunization Tetanus Immunization: Up to Date - Cardiac Hx Hypertension: Yes Hx Peripheral Edema: Yes (ble +1) - Pulmonary Hx Respiratory Disorders: No - Neurological Hx Neurological Disorder: No - HEENT Hx HEENT Disorder: No - Renal Hx Renal Disorder: No - Endocrine/Metabolic Hx Diabetes Mellitus Type 2: Yes - Hematological/Oncological Hx Blood Disorders: No - Integumentary Other/Comment: left great toe partial amputation healed dry brown skin, generalized red raised and multiple brown sport to entire body except face c/o constantitch, left outer ankle dry brown wound, eccymosis to calfs - Musculoskeletal/Rheumatological Hx Falls: No - Gastrointestinal Hx Gastrointestinal Disorders: No - Genitourinary/Gynecological Hx Genitourinary Disorders: No - Psychiatric Hx Psychophysiologic Disorder: No Hx Anxiety: No Hx Bipolar Disorder: No Hx Depression: No Hx Emotional Abuse: No Hx Hallucinations: No Hx Panic Disorder: No Hx Post Traumatic Stress Disorder: No Hx Psychosis: No Hx Physical Abuse: No Hx Schizophrenia: No Hx Sexual Abuse: No Hx Substance Use: No - Past Surgical History Past Surgical History: No Previous - Surgical History Hx Amputation: Yes (Left Great toe) - Anesthesia Hx Anesthesia: Yes Hx Anesthesia Reactions: No Hx Malignant Hyperthermia: No - Suicidal Assessment Feels Threatened In Home Enviroment: No Family/Social History - Physician Review Nursing Documentation Reviewed: Yes Family/Social History: No Known Family HX Smoking Status: Never Smoked Hx Alcohol Use: Yes Hx Substance Use: No Hx Substance Use Treatment: No Allergies/Home Meds Allergies/Adverse Reactions: Allergies No Known Allergies Allergy (Verified 11/04/16 12:28) Review of Systems - Review of Systems Constitutional: Normal. absent: Fatigue, Weight Change, Fevers Respiratory: Normal. absent: SOB, Cough, Sputum Cardiovascular: Normal, Syncope (recent hospital admission for syncope). absent : Chest Pain, Palpitations, Edema Gastrointestinal: Normal. absent: Abdominal Pain, Stool Changes, Appetite Changes Musculoskeletal: Normal. absent: Arthralgias, Back Pain Skin: Normal, Rash. absent: Pruritis, Skin Lesions Neurological: Normal. absent: Headache, Dizziness, Focal Weakness Physical Exam - Physical Exam Narrative Physical Exam (Text): 11/07/16 15:40 GENERAL APPEARANCE: Patient is awake, alert, oriented x 3, in no acute distress. SKIN: Warm, dry; (-) cyanosis, (-) rash. (-) Decubitus Ulcer EYES: (-) conjunctival pallor, (-) scleral icterus, (-) conjunctival hemorrhage. ENMT: Mucous membranes moist. Airway patent: (-) stridor. Pharynx: (-) erythema, (-) exudate. NECK: (-) tenderness, (-) stiffness, (-) meningismus, (-) lymphadenopathy. CHEST AND RESPIRATORY: (-) accessory muscle use. Lungs: (-) rales, (-) rhonchi, (-) wheezes, (-) rub; breath sounds equal bilaterally. HEART AND CARDIOVASCULAR: (-) irregularity; (-) murmur, (-) gallop, (-) rub. ABDOMEN AND GI: Soft; (-) tenderness, (-) guarding; (-) organomegaly; (-) mass ; (-) CVA tenderness. EXTREMITIES: (+) tender, erythematous, edematous, warm to touch with 3x3 cm shallow ulcer to the distal tip of the L great toe, with (-) discharge, (-) deformity; (-) cellulitis, (-) lymphangitis; (-) subungual hemorrhage; (-) edema. NEURO AND PSYCH: Mental status as above; (-) focal findings. 11/07/16 15:41 Vital Signs Temp Pulse Resp BP Pulse Ox 11/07/16 16:48 81 16 98 11/07/16 15:14 78 16 152/86 H 99 11/07/16 11:24 98.5 F 97 H 16 141/97 H 98 Medical Decision Making ED Course and Treatment: 11/07/16 15:41 51 yo M w/ PMH of DM and HTN, presents with infected ulcer to the L great toe. Patient's last emergency room visit reviewed, patient was admitted for syncope, during that admission he had a CT head which was negative, his CBC during the entire admission showed a normal white count, and he had normal blood cultures, ID consult was obtained, however there is no documentation regarding an ulcer to his left great toe. Plan: -- Labs -- IV fluids -- Wound culture -- Cipro / Vancomycin -- Tdap -- XR L great toe -- Reassess and disposition Labs reviewed, WBC is normal. XR reviewed. Blood cultures not sent as the patient had recent blood cultures that were negative, he is afebrile at this time and his WBCs has been normal during his recent admission and today. XR L great toe: (+) amputation of the distal phalanx, (+) metallic FB noted proximal to the base of the 2nd phalanx. Diagnostic results discussed with the patient. On re-evaluation, patient is resting comfortably in bed in no acute distress, has no other complaints at this time, denies any fever or chills. PE is unchanged otherwise. Case d/w Dr. Posey, who was the last MD who admitted the patient. She agrees with current plan for inpatient admission, as the patient will likely need wound debridement and appropriate antibiotic therapy. Patient states he fully agrees with and understands further plan of care. He verbalized understanding of his present diagnosis, DM foot ulcer. I have given the patient opportunity to ask any additional questions. - Lab Interpretations Lab Results: 11/07/16 13:00 11/07/16 13:00 Lab Results 11/07/16 13:00: Alcohol, Quantitative < 10 11/07/16 13:00: Sodium 139, Potassium 4.5, Chloride 105, Carbon Dioxide 24, Anion Gap 15, BUN 12, Creatinine 1.2, Est GFR ( Amer) > 60, Est GFR (Non- Af Amer) > 60, Random Glucose 231 H, Calcium 8.4, Total Bilirubin 0.7, AST 26, ALT 28, Alkaline Phosphatase 80, Total Protein 7.1, Albumin 3.2, Globulin 3.9, Albumin/Globulin Ratio 0.8 L 11/07/16 13:00: PT 10.5, INR 0.97, APTT 29.6 11/07/16 13:00: WBC 5.7, RBC 4.23, Hgb 12.8 L, Hct 36.2 L, MCV 85.6, MCH 30.3, MCHC 35.4, RDW 12.9, Plt Count 263, MPV 11.2 H, Gran % 70.2 H, Lymph % (Auto) 20.4 L, [place] % (Auto) 6.0, Eos % (Auto) 3.2, Baso % (Auto) 0.2, Gran # 4.00, Lymph # 1.2, [place] # 0.3, Eos # 0.2, Baso # 0.01 - RAD Interpretation Radiology Orders: 11/07/16 12:21 FOOT LEFT GREAT TOE ROUTINE [RAD] Stat - Medication Orders Current Medication Orders: Famotidine (Pepcid) 40 mg PO [facility] Glipizide (Glucotrol) 10 mg PO DAILY [facility] Last Admin: 11/07/16 18:20 Dose: 10 mg Piperacillin Sod/Tazobactam Sod (Zosyn 3.375 In Ns 100ml) 100 mls @ 200 mls/hr IVPB Q6 [facility] PRN Reason: Protocol Stop: 11/15/16 18:01 Last Admin: 11/07/16 18:21 Dose: 200 mls/hr Insulin Human Regular (Humulin R Low) 0 units SC ACHS [facility] PRN Reason: Protocol Last Admin: 11/07/16 18:21 Dose: Lisinopril (Zestril) 10 mg PO DAILY [facility] Last Admin: 11/07/16 18:20 Dose: 10 mg Metformin HCl (Glucophage) 1,000 mg PO BID [facility] Last Admin: 11/07/16 18:20 Dose: 1,000 mg Discontinued Medications Ciprofloxacin (Cipro 400mg/200ml Dsw) 400 mg in 200 mls @ 133.3 mls/hr IVPB STAT [facility] PRN Reason: Protocol Stop: 11/07/16 13:51 Last Admin: 11/07/16 15:13 Dose: 133.3 mls/hr Vancomycin HCl (Vancomycin 1gm) 1 gm in 250 mls @ 167 mls/hr IVPB STAT [facility] PRN Reason: Protocol Stop: 11/07/16 13:50 Last Admin: 11/07/16 13:38 Dose: 167 mls/hr Tetanus/Reduced Diphtheria/Acell Pertussis (Boostrix Vaccine Inj) 0.5 ml IM .ONCE ONE Stop: 11/07/16 12:23 Last Admin: 11/07/16 14:11 Dose: 0.5 ml - PA / POLE CLASSIFIER / Resident Statement / has reviewed & agrees with the documentation as recorded. Disposition/Present on Arrival - Present on Arrival Any Indicators Present on Arrival: No History of DVT/PE: No History of Uncontrolled Diabetes: No Urinary Catheter: No History of Decub. Ulcer: No History Surgical Site Infection Following: None - Disposition Have Diagnosis and Disposition been Completed?: Yes Diagnosis: Diabetic foot ulcer Disposition: HOSPITALIZED Disposition Time: 15:30 Patient Plan: Admission Patient Problems: Current Active Problems Problem Status Onset Diabetic foot ulcer Acute Condition: STABLE
[2016-11-07] MEDS ORDERED: Insulin Reg-LOW-Coverage SC SCH (16:30)
--- NOTE | 2016-11-07 17:34 | CP.PCM.HP ---
<Horacio Mahoney - Last Filed: 11/07/16 20:41> History of Present Illness - History of Present Illness History of Present Illness: 51M who was recently discharged for dizziness and maculopapular rash covering his body which had resolved presented to the ED with complaint of a foot ulcer on the anterior/inferior left great toe. Pt was unable to see this ulcer due to the fact that he could not see it and has decreased feeling in the distal half of his left foot compared to his right, despite having normal pulses. When he took his sock off, it pulled on his skin and his toe started to bleed. Pt. denies headaches, fevers, chills vision/hearing loss, neck pain, chest pain, difficulty breathing, abdominal pain, nausea, vomiting, diarrhea, any GI/ symptoms or back pain. PMHx: Uncontrolled NIDDM2, Diabetic foot ulcer s/p partial amputation, HTN PSHx: Partial amputation L great toe SocialHx: Denies tob, drug use and socially drinks. 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 FamilyHx: Mom had DM and CAD Allergies:NKDA HomeMeds: Glipizide, Metformin, Lisinopril Present on Admission - Present on Admission Any Indicators Present on Admission: Yes History of Uncontrolled Diabetes: Yes Review of Systems - Constitutional Constitutional: absent: Chills, Fever, Headache - EENT Eyes: absent: Blind Spots, Change in Vision Ears: absent: Decreased Hearing Nose/Mouth/Throat: absent: Hoarsness, Sore Throat - Cardiovascular Cardiovascular: absent: Chest Pain, Chest Pain at Rest, Dyspnea, Edema, Palpitations - Respiratory Respiratory: absent: Cough, Dyspnea, Hemoptysis, Dyspnea on Exertion - Gastrointestinal Gastrointestinal: absent: Abdominal Pain, Diarrhea, Nausea, Vomiting - Genitourinary Genitourinary: absent: Dysuria, Flank Pain - Musculoskeletal Musculoskeletal: Deformity. absent: Back Pain, Muscle Weakness, Tingling - Integumentary Integumentary: Rash (maculopapular rash that is healing) - Neurological Neurological: Sensory Deficit (decreased sensation distal half of left foot). absent: Headaches - Psychiatric Psychiatric: absent: Depression, Irritability Past Patient History - Infectious Disease Hx of Infectious Diseases: None - Tetanus Immunizations Tetanus Immunization: Up to Date - Past Social History Smoking Status: Never Smoked Chewing Tobacco Use: No Cigar Use: No Alcohol: Social Drugs: Denies Home Situation {Lives}: With Family - CARDIAC Hx Hypertension: Yes Hx Peripheral Edema: Yes (ble +1) - PULMONARY Hx Respiratory Disorders: No - NEUROLOGICAL Hx Neurological Disorder: Yes Hx Dizziness: Yes (resolved after Meclizine and Hydration) - HEENT Hx HEENT Problems: No - RENAL Hx Chronic Kidney Disease: No - ENDOCRINE/METABOLIC Hx Diabetes Mellitus Type 2: Yes - HEMATOLOGICAL/ONCOLOGICAL Hx Blood Disorders: No - INTEGUMENTARY Other/Comment: left great toe partial amputation healed dry brown skin, generalized red raised and multiple brown sport to entire body except face c/o constantitch, left outer ankle dry brown wound, eccymosis to calfs - MUSCULOSKELETAL/RHEUMATOLOGICAL Hx Falls: No - GASTROINTESTINAL Hx Gastrointestinal Disorders: No - GENITOURINARY/GYNECOLOGICAL Hx Genitourinary Disorders: No - PSYCHIATRIC Hx Psychophysiologic Disorder: No Hx Anxiety: No Hx Bipolar Disorder: No Hx Depression: No Hx Emotional Abuse: No Hx Hallucinations: No Hx Panic Symptoms: No Hx Post Traumatic Stress Disorder: No Hx Psychosis: No Hx Physical Abuse: No Hx Schizophrenia: No Hx Sexual Abuse: No Hx Substance Use: No - SURGICAL HISTORY Hx Amputation: Yes (Left Great toe) - ANESTHESIA Hx Anesthesia: Yes Hx Anesthesia Reactions: No Hx Malignant Hyperthermia: No Meds Allergies/Adverse Reactions: Allergies Allergy/AdvReac Type Severity Reaction Status Date / Time No Known Allergies Allergy Verified 11/04/16 12:28 Physical Exam - Constitutional Appears: Non-toxic, No Acute Distress - Head Exam Head Exam: ATRAUMATIC, NORMOCEPHALIC - Eye Exam Eye Exam: EOMI, Normal appearance - ENT Exam ENT Exam: Mucous Membranes Moist - Neck Exam Neck exam: Positive for: Full Rom. Negative for: Lymphadenopathy - Respiratory Exam Respiratory Exam: Clear to Auscultation Bilateral, NORMAL BREATHING PATTERN - Cardiovascular Exam Cardiovascular Exam: REGULAR RHYTHM, RRR. absent: JVD - GI/Abdominal Exam GI & Abdominal Exam: Normal Bowel Sounds, Soft. absent: Tenderness - Extremities Exam Extremities exam: Positive for: full ROM, pedal pulses present. Negative for: joint swelling Additional comments: left great toe ulcer on anterior/inferior surface. Partial amputation of the left great toe - Back Exam Back exam: FULL ROM. absent: CVA tenderness (L), CVA tenderness (R) - Neurological Exam Neurological exam: Alert, CN II-XII Intact, Normal Gait, Oriented x3 - Psychiatric Exam Psychiatric exam: Normal Affect, Normal Mood - Skin Skin Exam: Rash (healing maculo-papular rash) Results - Vital Signs Recent Vital Signs: Last Vital Signs Temp 98.5 F 11/07/16 11:24 Pulse 81 11/07/16 16:48 Resp 16 11/07/16 16:48 BP 152/86 H 11/07/16 15:14 Pulse Ox 98 11/07/16 16:48 - Labs Result Diagrams: 11/07/16 13:00 11/07/16 13:00 Assessment & Plan - Assessment and Plan (Free Text) Assessment: 51M with left great toe ulcer likely 2/2 to uncontrolled DM Plan: Left Great Toe Ulceration -Fluids -Vancomycin -Zosyn -Wound Culture and Gram Stain -Xray - Left foot - findings suggest acute osteomyelitis - small radiopaque foregign body/needle fragment plantar aspect left adjacent to the 1st metatarsal -Podiatry Consult - Dr. Beaulieu - help appreciated -ID Consult - Dr. Cota - help appreciated Diabetes -Continue Metformin 1000mg PO BID -Continue Glipizide 10mg PO daily -ISS Low AC LISA Hypertension -Zestril 10mg PO daily -UDS PPX -GI - Pepcid -DVT - SCD's - Date & Time Date: 11/07/16 Time: 04:00 <Breana Posey - Last Filed: 11/08/16 14:40> Results - Vital Signs Recent Vital Signs: Last Vital Signs Temp 97.7 F 11/08/16 08:00 Pulse 85 11/08/16 09:51 Resp 11/08/16 08:00 BP 135/89 11/08/16 09:51 Pulse Ox 99 11/08/16 08:00 - Labs Result Diagrams: 11/08/16 07:25 11/08/16 07:25 Labs: Laboratory Results - last 24 hr 11/08/16 11/08/16 07:25 07:25 WBC 5.8 RBC 4.05 Hgb 11.9 L Hct 34.6 L MCV 85.4 MCH 29.4 MCHC 34.4 RDW 13.0 Plt Count 267 MPV 10.8 Gran % 65.3 Lymph % (Auto) 21.8 L [place] % (Auto) 8.0 H Eos % (Auto) 4.7 Baso % (Auto) 0.2 Gran # 3.78 Lymph # 1.3 [place] # 0.5 Eos # 0.3 Baso # 0.01 Sodium 139 Potassium 3.8 Chloride 107 Carbon Dioxide 25 Anion Gap 11 BUN 12 Creatinine 1.4 Est GFR ( Amer) > 60 Est GFR (Non-Af Amer) 53 Random Glucose 125 H Calcium 7.9 L Total Bilirubin 0.7 AST 26 ALT 34 Alkaline Phosphatase 64 Total Protein 5.9 Albumin 2.8 L Globulin 3.1 Albumin/Globulin Ratio 0.9 L Attending/Attestation - Attestation I have personally seen and examined this patient.: Yes I have fully participated in the care of the patient.: Yes I have reviewed all pertinent clinical information: Yes Notes (Text): 11/08/16 14:37 Attending note; Patient seen and examined with the resident in ER. Patient is a 51-year-old male with a past medical history of diabetes, toe amputation, rash is admitted with injury to the left foot and open wound. X-ray showed possible osteomyelitis. Admit the patient to [facility] floor. Started on Zosyn and got 1 dose of vancomycin. ID evaluation requested. History of acute kidney injury in the past; monitor creatinine closely. Diabetes; continue metformin and glipizide. Dietary education given. We'll follow up with podiatry closely. Upon discharge the patient will follow-up with [facility] clinic.
[2016-11-07] MEDS: Piperacillin/Tazobact 3.375 gm 100 ML IVPB SCH (18:21)
[2016-11-07] MEDS ORDERED: Pneumococcal 23-Valent Vaccine IM ONE (21:27)
[2016-11-07] MEDS: Insulin Reg-LOW-Coverage SC SCH (22:35)
[2016-11-08] MEDS: Piperacillin/Tazobact 3.375 gm 100 ML IVPB SCH ×5 (00:02→23:34)
[2016-11-08 07:28] LABS: ADD MANUAL DIFF? NO
[2016-11-08 07:34] LABS: BASO # 0.01 K/mm3 (0.0-2.0); BASO % 0.2 % (0.0-3.0); EOS # 0.3 (0.0-0.7); EOS % 4.7 % (1.5-5.0); GRAN # 3.78 (1.4-6.5); GRAN % 65.3 % (50.0-68.0); HEMATOCRIT 34.6 % (42.0-52.0); LYMPH # 1.3 (1.2-3.4); LYMPH % 21.8 % (22.0-35.0); MEAN CELL VOLUME 85.4 fL (80.0-105.0); MEAN CORPUSCULAR HEMOGLOBIN 29.4 pg (25.0-35.0); MEAN CORPUSCULAR HGB CONC 34.4 g/dl (31.0-37.0); MEAN PLATELET VOLUME 10.8 fl (7.0-11.0); MONO # 0.5 (0.1-0.6); PLATELET COUNT 267 10^3/uL (120.0-450.0); WHITE BLOOD COUNT 5.8 10^3/ul (4.5-11.0)
[2016-11-08 07:44] LABS: ALB/GLOB RATIO 0.9 (1.1-1.8); ALKALINE PHOSPHATASE 64 U/L (38-133); ALT/SGPT 34 U/L (7-56); AST/SGOT 26 U/L (15-59); BILIRUBIN,TOTAL 0.7 mg/dL (0.2-1.3); BLOOD UREA NITROGEN 12 mg/dL (7-21); CALCIUM 7.9 mg/dL (8.4-10.5); CARBON DIOXIDE 25 mmol/L (21-33); CHLORIDE 107 mmol/L (98-107); GFR AFRICAN-AMERICAN > 60; GLUCOSE,RANDOM 125 mg/dL (70-110); POTASSIUM 3.8 mmol/L (3.6-5.0); SODIUM 139 mmol/L (132-148); TOTAL PROTEIN 5.9 g/dL (5.8-8.3)
[2016-11-08] MEDS: Insulin Reg-LOW-Coverage SC SCH ×4 (08:25→22:09)
--- NOTE | 2016-11-08 09:43 | CON ---
DATE: 11/08/2016 A 51-year-old diabetic male seen at bedside for consultation, evaluation and management of a recent l eft great toe ulceration. The patient states he was in the hospital recently and had no issues with his left great toe. However, when he went home, he realized that his toe was bleeding and presented to the Emergency Room. PAST MEDICAL HISTORY: Significant for longstanding uncontrolled type 2 diabetes with profound periph eral neuropathy and essential hypertension. PAST SURGICAL HISTORY: Significant for partial left great toe amputation. ALLERGIES: The patient has no known drug allergies. MEDICATIONS: Include fosinopril, glipizide and metformin. SOCIAL HISTORY: The patient denies illicit drug use. Does not use tobacco products and very rarely has alcoholic beverages. FAMIILY HISTORY: Significant for diabetes and heart disease. VITAL SIGNS: Taken today reveal a temperature of 98.5, pulse rate of 78, blood pressure of 152/86 an d respiratory rate of 16. Microbiology report taken yesterday in the ER shows rare gram-positive cocci preliminarily with sensi tivities to follow. X-ray report reveals a small metallic fragment, most likely the tip of a needle at the first left interspace which is insignificant to his ulceration. However, the x-ray is negativ e for acute osteomyelitis. OBJECTIVE: Palpable pedal pulses noted bilaterally. The patient is unable to detect 5.07 gram monof ilament wire testing bilaterally. Decreased pedal hair growth noted bilaterally. Capillary filling time is within normal limits. 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 Left great hallux is noted to be partially amputated and there is a full thickness ulc eration at the distal aspect of the hallux with severe overlying hyperkeratotic tissue. There is not ed to be some purulent drainage emanating from the ulceration. Upon excisional debridement of all hy perkeratotic tissue, there is an underlying full thickness ulceration that is a mixture of granular a nd fibrotic tissue and the wound does probe to bone. ASSESSMENT: Full thickness diabetic ulceration to the left plantar hallux. PLAN AND TREATMENT: Given the fact that there is a metallic shard in his left foot and that the woun d does probe to bone, we will order a bone scan in lieu of an MRI at this point to rule out the prese nce of acute osteomyelitis of the proximal phalanx. Excisional debridement was performed at bedside which revealed probing to bone and the wound was cleansed with normal sterile saline and application of a dry sterile dressing was applied. Upon excisional debridement, profuse bleeding was evident ind icative of adequate circulation. Culture and sensitivity was taken and submitted. Recommend immedia te infectious disease consult to evaluate cultures and sensitivities. We will await bone scan result s and plan accordingly. The patient will be seen and followed daily. Saeed Vera DPM cc: [id number] TT: 11/08/2016 09:43:21 Confirmation # [id number] Dictation # [id number] tn
--- NOTE | 2016-11-08 11:47 | CP.PCM.PN ---
Subjective - Date & Time of Evaluation Date of Evaluation: 11/08/16 Time of Evaluation: 09:00 - Subjective Subjective: patient seen and examined in room 572. patient is alert, awake and oriented. Denies Any fevers, chills. Denies any abdominal pain, nausea, vomiting. Denied any urinary symptoms. Tolerating diet well. Complaining of left big toe swelling Review of Systems - Constitutional Constitutional: absent: Fever, Chills - EENT Eyes: absent: Blurred Vision Nose/Mouth/Throat: absent: Nasal Congestion - Cardiovascular Cardiovascular: absent: Chest Pain, Chest Pain at Rest - Respiratory Respiratory: absent: Cough, Dyspnea, Dyspnea on Exertion - Gastrointestinal Gastrointestinal: absent: Abdominal Pain, Vomiting - Musculoskeletal Additional comments: left Big toe swelling - Neurological Neurological: absent: Abnormal Movements - Psychiatric Psychiatric: absent: Anxiety, Depression - Hematologic/Lymphatic Hematologic: absent: Easy Bleeding, Easy Bruising Objective - Vital Signs/Intake and Output Vital Signs (last 24 hours): Temp Pulse Resp BP Pulse Ox 97.7 F 85 20 135/89 99 11/08/16 08:00 11/08/16 09:51 11/08/16 08:00 11/08/16 09:51 11/08/16 08:00 Intake and Output: 11/08/16 11/08/16 06:59 18:59 Intake Total 480 Balance 480 - Medications Medications: Current Medications Famotidine (Pepcid) 40 mg PO HS [facility] Last Admin: 11/07/16 22:35 Dose: Not Given Glipizide (Glucotrol) 10 mg PO DAILY [facility] Last Admin: 11/08/16 09:52 Dose: 10 mg Piperacillin Sod/Tazobactam Sod (Zosyn 3.375 In Ns 100ml) 100 mls @ 200 mls/hr IVPB Q6 [facility] PRN Reason: Protocol Stop: 11/15/16 18:01 Last Admin: 11/08/16 06:06 Dose: 200 mls/hr Insulin Human Regular (Humulin R Low) 0 units SC ACHS [facility] Last Admin: 11/08/16 08:25 Dose: Not Given Linezolid (Zyvox) 600 mg PO BID [facility] PRN Reason: Protocol Stop: 11/15/16 10:01 Last Admin: 11/08/16 09:52 Dose: 600 mg Lisinopril (Zestril) 10 mg PO DAILY [facility] Last Admin: 11/08/16 09:51 Dose: 10 mg Metformin HCl (Glucophage) 1,000 mg PO BID [facility] Last Admin: 11/08/16 09:51 Dose: 1,000 mg - Labs Labs: 11/08/16 07:25 11/08/16 07:25 PT 10.5 Seconds (9.9-11.8) 11/07/16 13:00 INR 0.97 (0.93-1.08) 11/07/16 13:00 APTT 29.6 Seconds (23.7-30.8) 11/07/16 13:00 - Constitutional Appears: Well, Non-toxic - Head Exam Head Exam: NORMAL INSPECTION - Eye Exam Eye Exam: Normal appearance Pupil Exam: NORMAL ACCOMODATION - ENT Exam ENT Exam: Mucous Membranes Moist - Neck Exam Neck Exam: Normal Inspection - Respiratory Exam Respiratory Exam: NORMAL BREATHING PATTERN - Cardiovascular Exam Cardiovascular Exam: REGULAR RHYTHM - GI/Abdominal Exam GI & Abdominal Exam: Soft, Normal Bowel Sounds. absent: Tenderness - Extremities Exam Additional comments: Left Big toe in dressing mild redness present. open skin wound present. peripheral pulses brisk - Back Exam Back Exam: absent: CVA tenderness (L), CVA tenderness (R) - Neurological Exam Neurological Exam: Alert - Psychiatric Exam Psychiatric exam: Normal Affect - Skin Skin Exam: Normal Color Assessment and Plan - Assessment and Plan (Free Text) Assessment: 1.Patient is a 51-year-old male with a past medical of diabetes is admitted with left big toe pain and swelling. Patient had an injury yesterday. Since the patient's sensation decreased due to diabetes he did not notice the wound. X-ray showed possible osteomyelitis. Podiatry evaluation requested. bone scan ordered. Wound culture sent. Currently on Zyvox and Zosyn. Case discussed with ID Dr. bhardwaj in detail. 2.diabetes; controlled with metfomin and glipizide. dietary education given. 3.hypertension; continue lisinopril. 4. GI prophylaxis with pepcid. upon discharge the patient will [place] with [facility] [place].
--- NOTE | 2016-11-08 11:57 | CP.PCM.CON ---
History of Present Illness - History of Present Illness History of Present Illness: 51 year old male with PMH of DM, HTN, obesity with BMI 31 was recently admitted in [facility] for maculopapular rash, which has improved with steroid cream. He comes back complaining of pain the left foot associated with an ulcer on his left hallux which he noticed when he got back home. The patient does not recall specific trauma to the foot, no animal contacts, no wading in water or swimming, no walking barefoot on soil. The patient also denies fever or chills, no nausea or vomiting, no headache or dizziness, no chest pain, no SOB, no abdominal pain, no diarrhea, no dysuria. Infectious diseases consult is requested to further evaluate and manage. Review of Systems - Review of Systems All systems: reviewed and no additional remarkable complaints except (as per HPI ) Past Patient History - Infectious Disease Hx of Infectious Diseases: None - Tetanus Immunizations Tetanus Immunization: Up to Date - Past Social History Smoking Status: Never Smoked - CARDIAC Hx Hypertension: Yes Hx Peripheral Edema: Yes (ble +1) - PULMONARY Hx Respiratory Disorders: No - NEUROLOGICAL Hx Neurological Disorder: No - HEENT Hx HEENT Problems: No - RENAL Hx Chronic Kidney Disease: No - ENDOCRINE/METABOLIC Hx Diabetes Mellitus Type 2: Yes - HEMATOLOGICAL/ONCOLOGICAL Hx Blood Disorders: No - INTEGUMENTARY Other/Comment: left great toe partial amputation healed dry brown skin, generalized red raised and multiple brown sport to entire body except face c/o constantitch, left outer ankle dry brown wound, eccymosis to calfs - MUSCULOSKELETAL/RHEUMATOLOGICAL Hx Falls: No - GASTROINTESTINAL Hx Gastrointestinal Disorders: No - GENITOURINARY/GYNECOLOGICAL Hx Genitourinary Disorders: No - PSYCHIATRIC Hx Psychophysiologic Disorder: No Hx Anxiety: No Hx Bipolar Disorder: No Hx Depression: No Hx Emotional Abuse: No Hx Hallucinations: No Hx Panic Symptoms: No Hx Post Traumatic Stress Disorder: No Hx Psychosis: No Hx Physical Abuse: No Hx Schizophrenia: No Hx Sexual Abuse: No Hx Substance Use: No - SURGICAL HISTORY Hx Amputation: Yes (Left Great toe) - ANESTHESIA Hx Anesthesia: Yes Hx Anesthesia Reactions: No Hx Malignant Hyperthermia: No Meds Allergies/Adverse Reactions: Allergies Allergy/AdvReac Type Severity Reaction Status Date / Time No Known Allergies Allergy Verified 11/04/16 12:28 - Medications Medications: Current Medications Famotidine (Pepcid) 40 mg PO HS [facility] Glipizide (Glucotrol) 10 mg PO DAILY [facility] Last Admin: 11/07/16 18:20 Dose: 10 mg Piperacillin Sod/Tazobactam Sod (Zosyn 3.375 In Ns 100ml) 100 mls @ 200 mls/hr IVPB Q6 [facility] PRN Reason: Protocol Stop: 11/08/16 00:29 Last Admin: 11/07/16 18:21 Dose: 200 mls/hr Insulin Human Regular (Humulin R Low) 0 units SC ACHS [facility] PRN Reason: Protocol Last Admin: 11/07/16 18:21 Dose: Not Given Lisinopril (Zestril) 10 mg PO DAILY [facility] Last Admin: 11/07/16 18:20 Dose: 10 mg Metformin HCl (Glucophage) 1,000 mg PO BID [facility] Last Admin: 11/07/16 18:20 Dose: 1,000 mg Physical Exam - Constitutional Appears: Non-toxic, No Acute Distress - Head Exam Head Exam: NORMAL INSPECTION - ENT Exam ENT Exam: Mucous Membranes Moist - Neck Exam Neck exam: Negative for: Lymphadenopathy, Meningismus - Respiratory Exam Respiratory Exam: Decreased Breath Sounds - Cardiovascular Exam Cardiovascular Exam: +S1, +S2 - GI/Abdominal Exam GI & Abdominal Exam: Soft. absent: Tenderness - Extremities Exam Additional comments: left foot with dry dressings in place Results - Vital Signs Recent Vital Signs: Last Vital Signs Temp 98.0 F 11/07/16 18:00 Pulse 81 11/07/16 18:00 Resp 18 11/07/16 18:00 BP 144/89 11/07/16 18:20 Pulse Ox 95 11/07/16 18:00 - Labs Result Diagrams: 11/08/16 07:25 11/08/16 07:25 Assessment & Plan - Assessment and Plan (Free Text) Plan: Assessment Infected left hallux ulcer, suspicious for osteomyelitis Chronic renal failure DM HTN obesity with BMI 31 history of maculopapular rash Plan Discussed with Dr. Vera - probe to bone is positive - will await Bone scan Started patient on Zyvox and Zosyn pending blood and wound cx Will monitor clinically
[2016-11-09] MEDS: Piperacillin/Tazobact 3.375 gm 100 ML IVPB SCH (05:41)
[2016-11-09 05:53] LABS: ADD MANUAL DIFF? NO
[2016-11-09 06:02] LABS: BASO # 0.02 K/mm3 (0.0-2.0); BASO % 0.3 % (0.0-3.0); EOS # 0.3 (0.0-0.7); EOS % 4.3 % (1.5-5.0); HEMATOCRIT 33.8 % (42.0-52.0); LYMPH # 1.4 (1.2-3.4); LYMPH % 18.7 % (22.0-35.0); MEAN CELL VOLUME 84.9 fL (80.0-105.0); MEAN CORPUSCULAR HEMOGLOBIN 29.6 pg (25.0-35.0); MEAN CORPUSCULAR HGB CONC 34.9 g/dl (31.0-37.0); MEAN PLATELET VOLUME 10.8 fl (7.0-11.0); MONO # 0.5 (0.1-0.6); MONO % 6.7 % (1.0-6.0); PLATELET COUNT 290 10^3/uL (120.0-450.0); RED CELL DISTRIBUTION WIDTH 12.9 % (11.5-14.5); WHITE BLOOD COUNT 7.3 10^3/ul (4.5-11.0)
[2016-11-09 06:14] LABS: ALB/GLOB RATIO 0.9 (1.1-1.8); ALKALINE PHOSPHATASE 71 U/L (38-133); ALT/SGPT 39 U/L (7-56); AST/SGOT 37 U/L (15-59); BILIRUBIN,TOTAL 0.3 mg/dL (0.2-1.3); BLOOD UREA NITROGEN 10 mg/dL (7-21); CALCIUM 7.7 mg/dL (8.4-10.5); CARBON DIOXIDE 24 mmol/L (21-33); CHLORIDE 107 mmol/L (98-107); GFR AFRICAN-AMERICAN > 60; GLUCOSE,RANDOM 187 mg/dL (70-110); POTASSIUM 3.9 mmol/L (3.6-5.0); SODIUM 135 mmol/L (132-148); TOTAL PROTEIN 5.9 g/dL (5.8-8.3)
[2016-11-09] MEDS: Insulin Reg-LOW-Coverage SC SCH ×4 (08:55→22:40)
--- NOTE | 2016-11-09 11:13 | CP.PCM.PN ---
Subjective - Date & Time of Evaluation Date of Evaluation: 11/09/16 Time of Evaluation: 08:00 - Subjective Subjective: patient seen and examined in room 572. patient is alert, awake and oriented. Denies Any fevers, chills. Denies any abdominal pain, nausea, vomiting. Denied any urinary symptoms. Tolerating diet well. Complaining of left big toe pain and swelling Review of Systems - Constitutional Constitutional: absent: Fever, Chills - EENT Eyes: absent: Blurred Vision Nose/Mouth/Throat: absent: Nasal Congestion - Cardiovascular Cardiovascular: absent: Chest Pain, Chest Pain at Rest - Respiratory Respiratory: absent: Cough, Dyspnea, Dyspnea on Exertion - Gastrointestinal Gastrointestinal: absent: Abdominal Pain, Nausea, Vomiting - Musculoskeletal Musculoskeletal: absent: Abnormal Gait - Neurological Neurological: absent: Abnormal Gait, Confusion, Weakness - Psychiatric Psychiatric: absent: Anxiety, Depression - Hematologic/Lymphatic Hematologic: absent: Easy Bleeding, Easy Bruising Objective - Vital Signs/Intake and Output Vital Signs (last 24 hours): Temp Pulse Resp BP Pulse Ox 98.3 F 69 19 131/89 94 L 11/09/16 09:43 11/09/16 09:43 11/09/16 09:43 11/09/16 09:43 11/09/16 09:43 Intake and Output: 11/09/16 11/09/16 06:59 18:59 Intake Total 1720 Output Total 0 Balance 1720 - Medications Medications: Current Medications Acetaminophen (Tylenol 325mg Tab) 650 mg PO Q6H PRN PRN Reason: Pain, severe (8-10) Famotidine (Pepcid) 40 mg PO HS [facility] Last Admin: 11/08/16 22:08 Dose: 40 mg Glipizide (Glucotrol) 10 mg PO DAILY [facility] Last Admin: 11/09/16 09:16 Dose: 10 mg Piperacillin Sod/Tazobactam Sod (Zosyn 3.375 In Ns 100ml) 100 mls @ 200 mls/hr IVPB Q6 [facility] PRN Reason: Protocol Stop: 11/15/16 18:01 Last Admin: 11/09/16 05:41 Dose: 200 mls/hr Ibuprofen (Motrin Tab) 600 mg PO Q8 PRN PRN Reason: Pain, moderate (4-7) Insulin Human Regular (Humulin R Low) 0 units SC ACHS [facility] Last Admin: 11/09/16 08:55 Dose: 2 units Linezolid (Zyvox) 600 mg PO BID [facility] PRN Reason: Protocol Stop: 11/15/16 10:01 Last Admin: 11/09/16 09:16 Dose: 600 mg Lisinopril (Zestril) 10 mg PO DAILY [facility] Last Admin: 11/09/16 09:16 Dose: 10 mg Metformin HCl (Glucophage) 1,000 mg PO BID [facility] Last Admin: 11/09/16 09:17 Dose: 1,000 mg - Labs Labs: 11/09/16 05:15 11/09/16 05:15 PT 10.5 Seconds (9.9-11.8) 11/07/16 13:00 INR 0.97 (0.93-1.08) 11/07/16 13:00 APTT 29.6 Seconds (23.7-30.8) 11/07/16 13:00 - Constitutional Appears: Well, Non-toxic - Head Exam Head Exam: NORMAL INSPECTION - Eye Exam Eye Exam: Normal appearance Pupil Exam: NORMAL ACCOMODATION - ENT Exam ENT Exam: Mucous Membranes Moist - Respiratory Exam Respiratory Exam: NORMAL BREATHING PATTERN - Cardiovascular Exam Cardiovascular Exam: REGULAR RHYTHM - GI/Abdominal Exam GI & Abdominal Exam: Soft, Normal Bowel Sounds. absent: Tenderness - Extremities Exam Extremities Exam: absent: Pedal Edema Additional comments: Left big toe in dressing. reduced swelling noted. - Back Exam Back Exam: absent: CVA tenderness (L), CVA tenderness (R) - Neurological Exam Neurological Exam: Alert - Psychiatric Exam Psychiatric exam: Normal Affect - Skin Skin Exam: Normal Color Assessment and Plan - Assessment and Plan (Free Text) Assessment: 1.Patient is a 51-year-old male with a past medical of diabetes is admitted with left big toe pain and swelling s/p injury. X-ray showed possible osteomyelitis. Podiatry evaluation Appreciated. wound care done by podiatry. Probe to bone is positive. bone scan ordered instead of MRI due to the presence of metallic object in the left foot. the possibility of osteomyelitis and the need for long-term antibiotics vs possible amputation discussed with the patient in detail. Wound culture is MSSA. Currently on Zyvox and Zosyn. Case discussed with ID Dr. [email or web address] in detail. 2.diabetes; controlled with metfomin and glipizide. dietary education given. 3.hypertension; continue lisinopril. 4. GI prophylaxis with pepcid. upon discharge the patient will follow-up with [facility] clinic.
--- NOTE | 2016-11-09 20:01 | CP.PCM.PN ---
Subjective - Date & Time of Evaluation Date of Evaluation: 11/09/16 Time of Evaluation: 12:00 - Subjective Subjective: Comfortable, not in distress. Objective - Vital Signs/Intake and Output Vital Signs (last 24 hours): Temp Pulse Resp BP Pulse Ox 98.3 F 79 20 164/95 H 99 11/09/16 16:00 11/09/16 16:00 11/09/16 16:00 11/09/16 16:00 11/09/16 16:00 Intake and Output: 11/09/16 11/10/16 18:59 06:59 Intake Total 840 Output Total 1 Balance 839 - Medications Medications: Current Medications Acetaminophen (Tylenol 325mg Tab) 650 mg PO Q6H PRN PRN Reason: Pain, severe (8-10) Famotidine (Pepcid) 40 mg PO HS [facility] Last Admin: 11/08/16 22:08 Dose: 40 mg Glipizide (Glucotrol) 10 mg PO DAILY [facility] Last Admin: 11/09/16 09:16 Dose: 10 mg Ibuprofen (Motrin Tab) 600 mg PO Q8 PRN PRN Reason: Pain, moderate (4-7) Last Admin: 11/09/16 17:09 Dose: 600 mg Insulin Human Regular (Humulin R Low) 0 units SC ACHS [facility] Last Admin: 11/09/16 17:09 Dose: Not Given Linezolid (Zyvox) 600 mg PO BID [facility] PRN Reason: Protocol Stop: 11/15/16 10:01 Last Admin: 11/09/16 17:09 Dose: 600 mg Lisinopril (Zestril) 10 mg PO DAILY [facility] Last Admin: 11/09/16 09:16 Dose: 10 mg Metformin HCl (Glucophage) 1,000 mg PO BID [facility] Last Admin: 11/09/16 17:09 Dose: 1,000 mg - Labs Labs: 11/09/16 05:15 11/09/16 05:15 PT 10.5 Seconds (9.9-11.8) 11/07/16 13:00 INR 0.97 (0.93-1.08) 11/07/16 13:00 APTT 29.6 Seconds (23.7-30.8) 11/07/16 13:00 - Constitutional Appears: Non-toxic, No Acute Distress - Head Exam Head Exam: NORMAL INSPECTION - ENT Exam ENT Exam: Mucous Membranes Moist - Neck Exam Neck Exam: absent: Lymphadenopathy, Meningismus - Respiratory Exam Respiratory Exam: Decreased Breath Sounds - Cardiovascular Exam Cardiovascular Exam: +S1, +S2 - GI/Abdominal Exam GI & Abdominal Exam: Soft. absent: Tenderness - Extremities Exam Additional comments: left foot with dressings in place Assessment and Plan - Assessment and Plan (Free Text) Plan: Assessment Infected left hallux ulcer, suspicious for osteomyelitis, growing MSSA Chronic renal failure DM HTN obesity with BMI 31 history of maculopapular rash Plan Discussed with Dr. Vera - probe to bone is positive - will await Bone scan continue Zyvox Will monitor clinically
[2016-11-10] MEDS: Insulin Reg-LOW-Coverage SC SCH ×3 (08:05→16:33)
[2016-11-10 08:11] LABS: ADD MANUAL DIFF? NO
[2016-11-10 08:22] LABS: BASO # 0.02 K/mm3 (0.0-2.0); BASO % 0.3 % (0.0-3.0); EOS # 0.2 (0.0-0.7); EOS % 3.3 % (1.5-5.0); GRAN # 4.72 (1.4-6.5); GRAN % 70.3 % (50.0-68.0); HEMATOCRIT 34.4 % (42.0-52.0); LYMPH # 1.3 (1.2-3.4); MEAN CELL VOLUME 85.4 fL (80.0-105.0); MEAN CORPUSCULAR HEMOGLOBIN 29.8 pg (25.0-35.0); MEAN CORPUSCULAR HGB CONC 34.9 g/dl (31.0-37.0); MEAN PLATELET VOLUME 10.9 fl (7.0-11.0); MONO # 0.4 (0.1-0.6); MONO % 6.1 % (1.0-6.0); PLATELET COUNT 309 10^3/uL (120.0-450.0); RED CELL DISTRIBUTION WIDTH 13.1 % (11.5-14.5); WHITE BLOOD COUNT 6.7 10^3/ul (4.5-11.0)
[2016-11-10 08:23] LABS: ALB/GLOB RATIO 0.9 (1.1-1.8); ALKALINE PHOSPHATASE 74 U/L (38-133); ALT/SGPT 41 U/L (7-56); AST/SGOT 41 U/L (15-59); BILIRUBIN,TOTAL 0.3 mg/dL (0.2-1.3); BLOOD UREA NITROGEN 11 mg/dL (7-21); CARBON DIOXIDE 24 mmol/L (21-33); CHLORIDE 106 mmol/L (95-110); GFR AFRICAN-AMERICAN > 60; GLUCOSE,RANDOM 197 mg/dL (70-110); POTASSIUM 4.4 mmol/L (3.6-5.0); SODIUM 137 mmol/L (132-148); TOTAL PROTEIN 6.7 g/dL (5.8-8.3)
[2016-11-10 08:51] LABS: CALCIUM 8.2 mg/dL (8.4-10.5)
[2016-11-10] MEDS: Piperacillin/Tazobact 3.375 gm 100 ML IVPB SCH ×2 (11:49→17:06)
--- NOTE | 2016-11-10 15:14 | CP.PCM.PN ---
<Horacio Mahoney - Last Filed: 11/10/16 23:00> Subjective - Date & Time of Evaluation Date of Evaluation: 11/10/16 Time of Evaluation: 07:00 - Subjective Subjective: PGY1 Hospitalist Note Pt. seen and examined at bedside. Today he has not complaints and denies headaches, fevers, chills vision/hearing loss, neck pain, chest pain, difficulty breathing, abdominal pain, nausea, vomiting, diarrhea, any GI/ symptoms or back pain. Objective - Vital Signs/Intake and Output Vital Signs (last 24 hours): Temp Pulse Resp BP Pulse Ox 97.6 F 67 19 143/90 97 11/10/16 07:30 11/10/16 09:37 11/10/16 07:30 11/10/16 09:37 11/10/16 07:30 Intake and Output: 11/10/16 11/10/16 06:59 18:59 Intake Total 420 Output Total 0 Balance 420 - Medications Medications: Current Medications Acetaminophen (Tylenol 325mg Tab) 650 mg PO Q6H PRN PRN Reason: Pain, severe (8-10) Famotidine (Pepcid) 40 mg PO HS [facility] Last Admin: 11/09/16 23:06 Dose: 40 mg Glipizide (Glucotrol) 10 mg PO DAILY [facility] Last Admin: 11/10/16 09:37 Dose: 10 mg Piperacillin Sod/Tazobactam Sod (Zosyn 3.375 In Ns 100ml) 100 mls @ 200 mls/hr IVPB Q6 [facility] PRN Reason: Protocol Stop: 11/17/16 12:01 Last Admin: 11/10/16 11:49 Dose: 200 mls/hr Ibuprofen (Motrin Tab) 600 mg PO Q8 PRN PRN Reason: Pain, moderate (4-7) Last Admin: 11/10/16 08:10 Dose: 600 mg Insulin Human Regular (Humulin R Low) 0 units SC ACHS [facility] Last Admin: 11/10/16 11:49 Dose: 2 units Lisinopril (Zestril) 10 mg PO DAILY [facility] Last Admin: 11/10/16 09:37 Dose: 10 mg Metformin HCl (Glucophage) 1,000 mg PO BID [facility] Last Admin: 11/10/16 09:37 Dose: 1,000 mg - Labs Labs: 11/10/16 07:50 11/10/16 07:50 PT 10.5 Seconds (9.9-11.8) 11/07/16 13:00 INR 0.97 (0.93-1.08) 11/07/16 13:00 APTT 29.6 Seconds (23.7-30.8) 11/07/16 13:00 - Constitutional Constitutional: absent: Fever, Chills - EENT Eyes: absent: Blurred Vision Nose/Mouth/Throat: absent: Nasal Congestion - Cardiovascular Cardiovascular: absent: Chest Pain, Chest Pain at Rest - Respiratory Respiratory: absent: Cough, Dyspnea, Dyspnea on Exertion - Gastrointestinal Gastrointestinal: absent: Abdominal Pain, Nausea, Vomiting - Musculoskeletal Musculoskeletal: absent: Abnormal Gait - Neurological Neurological: absent: Abnormal Gait, Confusion, Weakness - Psychiatric Psychiatric: absent: Anxiety, Depression - Hematologic/Lymphatic Hematologic: absent: Easy Bleeding, Easy Bruising Assessment and Plan - Assessment and Plan (Free Text) Assessment: 51M with left great toe ulcer likely 2/2 to uncontrolled DM Plan: Left Great Toe Ulceration -Zosyn -Wound Culture and Gram Stain -Staph aureus -Beta Hem Strep Grp B -Culture Foot -Staph aureus -Blood -No growth after 48 hours -Xray - Left foot - findings suggest acute osteomyelitis - small radiopaque foreign body/needle fragment plantar aspect left adjacent to the 1st metatarsal -Podiatry Consult - Dr. Beaulieu - help appreciated -was able to probe down to bone -Bone Scan does not show evidence for Osteomyelitis - please see full report -Pt. scheduled for OR on Thursday to remove foreign body -need medical clearance -EKG ordered -CXR on 11/05/16 showed No Active Disease and Normal Heart -ID Consult - Dr. Cota - help appreciated -Continue Zosyn Diabetes -Continue Metformin 1000mg PO BID -Continue Glipizide 10mg PO daily -ISS Low AC LISA Hypertension -Zestril 10mg PO daily -UDS PPX -GI - Pepcid -DVT - SCD's <Rajinder Mendoza B - Last Filed: 11/13/16 16:12> Objective - Vital Signs/Intake and Output Vital Signs (last 24 hours): Temp Pulse Resp BP Pulse Ox 97.7 F 70 20 141/90 96 11/13/16 07:30 11/13/16 10:00 11/13/16 07:30 11/13/16 10:00 11/13/16 07:30 Intake and Output: 11/13/16 11/13/16 06:59 18:59 Intake Total 600 Balance 600 - Medications Medications: Current Medications Acetaminophen (Tylenol 325mg Tab) 650 mg PO Q4H PRN PRN Reason: Pain, Mild (1-3) Famotidine (Pepcid) 40 mg PO HS [facility] Last Admin: 11/13/16 02:16 Dose: 40 mg Glipizide (Glucotrol) 10 mg PO DAILY [facility] Last Admin: 11/13/16 10:01 Dose: 10 mg Piperacillin Sod/Tazobactam Sod (Zosyn 3.375 In Ns 100ml) 100 mls @ 200 mls/hr IVPB Q6 [facility] PRN Reason: Protocol Stop: 11/17/16 12:01 Last Admin: 11/13/16 12:50 Dose: 200 mls/hr Insulin Human Regular (Humulin R Low) 0 units SC ACHS [facility] Last Admin: 11/13/16 12:10 Dose: 2 units Ketorolac Tromethamine (Toradol) 15 mg IM Q6 PRN PRN Reason: Pain, moderate (4-7) Stop: 11/14/16 09:00 Last Admin: 11/13/16 15:40 Dose: 15 mg Lisinopril (Zestril) 10 mg PO DAILY [facility] Last Admin: 11/13/16 10:00 Dose: 10 mg Metformin HCl (Glucophage) 1,000 mg PO BID [facility] Last Admin: 11/13/16 10:00 Dose: 1,000 mg Ondansetron HCl (Zofran Inj) 4 mg IVP ONCE PRN PRN Reason: Nausea/Vomiting - Labs Labs: 11/12/16 06:45 11/12/16 06:45 PT 10.7 Seconds (9.9-11.8) 11/12/16 06:45 INR 0.99 (0.93-1.08) 11/12/16 06:45 APTT 29.6 Seconds (23.7-30.8) 11/07/16 13:00 Attending/Attestation - Attestation I have personally seen and examined this patient.: Yes I have fully participated in the care of the patient.: Yes I have reviewed all pertinent clinical information, including history, physical exam and plan: Yes Notes (Text): I have seen and examined patient at bedside. Briefly this is 51 year old male with history of DM-2, HTN, Obesity who got admitted for evaluation of left big toe pain and swelling s/p injury and found to have infected hallux ulcer suspicious for osteomyelitis however bone scan only shows osteomyelitis and its growing MSSA, beta hemolytic strep and gram negative bacilli on zosyn. Bone scan also revealed presence of metallic object in left foot. He will have surgery on thursday to remove FB. Continue metformin and glipizide. Upon discharge patient will follow up in [facility] clinic. Dr Rajinder Mendoza
--- NOTE | 2016-11-10 16:31 | NM ---
PROCEDURE: Whole Body Bone Scan HISTORY: diabetic left great toe ulceration COMPARISON: 11/07/2013. TECHNIQUE: Following administration of 30.0 miCu of Tc MDP multiplanar whole body images were obtained. FINDINGS: Flow component: Increased flow to the left foot. , diffuse without focal abnormality area of interest 1st digit. Blood pool component: Accumulation of radionuclide in the soft tissues plantar aspect of the left foot medially. This corresponds to the area of the ulcer identified on the plantar aspect of the foot seen on the lateral view 11/07/2016. Delayed images at 3:00: Retention of radionuclide 1st metatarsal phalangeal joint consistent with hallux valgus deformity. Degenerative or posttraumatic changes in both ankles. IMPRESSION: Findings consistent with cellulitis corresponding to the 1st digit at the surgical site and corresponding findings on the plain film radiographs. No evidence of acute osseous process/osteomyelitis.
--- NOTE | 2016-11-10 17:39 | CP.PCM.PN ---
<Dulce Gasca - Last Filed: 11/10/16 17:41> Subjective - Date & Time of Evaluation Date of Evaluation: 11/10/16 Time of Evaluation: 17:10 - Subjective Subjective: 51 yo diabetic male patient seen at bedside today with Dr. Beaulieu for follow- up of left hallux ulceration. Pt is seen resting comfortably in bed at time of visit. Appears to be in NAD. Pt says that he his left big toe became swollen several days ago and that he had blood and pus drainage to his sock. Pt also says that they found metal in his foot from the x-ray. Denies any recent trauma or inciting events as to how this occurred. Says he did have fever and some chills over the weekend however he says that this has subsided today. Denies n/v /sob/cp or any other complaints. Objective - Vital Signs/Intake and Output Vital Signs (last 24 hours): Temp Pulse Resp BP Pulse Ox 97.6 F 67 19 143/90 97 11/10/16 07:30 11/10/16 09:37 11/10/16 07:30 11/10/16 09:37 11/10/16 07:30 Intake and Output: 11/10/16 11/10/16 06:59 18:59 Intake Total 420 780 Output Total 0 Balance 420 780 - Medications Medications: Current Medications Acetaminophen (Tylenol 325mg Tab) 650 mg PO Q6H PRN PRN Reason: Pain, severe (8-10) Famotidine (Pepcid) 40 mg PO HS [facility] Last Admin: 11/09/16 23:06 Dose: 40 mg Glipizide (Glucotrol) 10 mg PO DAILY [facility] Last Admin: 11/10/16 09:37 Dose: 10 mg Piperacillin Sod/Tazobactam Sod (Zosyn 3.375 In Ns 100ml) 100 mls @ 200 mls/hr IVPB Q6 [facility] PRN Reason: Protocol Stop: 11/17/16 12:01 Last Admin: 11/10/16 17:06 Dose: 200 mls/hr Ibuprofen (Motrin Tab) 600 mg PO Q8 PRN PRN Reason: Pain, moderate (4-7) Last Admin: 11/10/16 08:10 Dose: 600 mg Insulin Human Regular (Humulin R Low) 0 units SC ACHS [facility] Last Admin: 11/10/16 16:33 Dose: Not Given Lisinopril (Zestril) 10 mg PO DAILY [facility] Last Admin: 11/10/16 09:37 Dose: 10 mg Metformin HCl (Glucophage) 1,000 mg PO BID [facility] Last Admin: 11/10/16 17:06 Dose: 1,000 mg - Labs Labs: 11/10/16 07:50 11/10/16 07:50 PT 10.5 Seconds (9.9-11.8) 11/07/16 13:00 INR 0.97 (0.93-1.08) 11/07/16 13:00 APTT 29.6 Seconds (23.7-30.8) 11/07/16 13:00 - Constitutional Appears: Non-toxic, No Acute Distress - Extremities Exam Additional comments: Left foot focused exam: Vasc- pedal pulses are palpable, cap refill time is < 3 sec to digits x5, skin temp runs warm to warm, there is moderate non-pitting edema noted to hallux circumferentially. Derm- there are 2 ulcerations noted to the distal-plantar aspect of the hallux which is full thickness in nature with overlying fibrotic tissue, slight serous drainage noted on compression, no sinus tracking noted, (+) probe to bone Neuro- pedal sensation is grossly diminished Ortho- there is a previous partial amputation of the hallux noted, - Neurological Exam Neurological Exam: Alert, Awake, Oriented x3 - Psychiatric Exam Psychiatric exam: Normal Affect, Normal Mood Assessment and Plan - Assessment and Plan (Free Text) Assessment: 51 yo diabetic male patient with full thickness ulceration of left hallux secondary to diabetic neuropathy Plan: -Pt S&E at bedside with attending Dr. Beaulieu -Chart, labs, vitals reviewed: afebrile, no leukocytosis -Wound cleansed with sterile saline, xeroform and DSD applied to foot -Forefoot offloading shoe ordered, pt is to wear at all times when weightbearing -Wound cx: MSSA + beta hemolytic strep Group B -C/w IV abx per ID -Bone scan left foot: (-) for OM -Pt to OR Thursday11/12/16 @ 4:[address] Beaulieu for removal of foreign body left foot -Medical clx is requested from primary team -Podiatry will continue to follow <Jeanette Beaulieu - Last Filed: 11/23/16 16:42> Objective - Vital Signs/Intake and Output Vital Signs (last 24 hours): Temp Pulse Resp BP Pulse Ox 98.1 F 73 20 145/91 H 97 11/14/16 08:09 11/14/16 10:45 11/14/16 08:09 11/14/16 10:45 11/14/16 08:09 - Labs Labs: 11/14/16 07:00 11/14/16 07:00 PT 10.7 Seconds (9.9-11.8) 11/12/16 06:45 INR 0.99 (0.93-1.08) 11/12/16 06:45 APTT 29.6 Seconds (23.7-30.8) 11/07/16 13:00 Attending/Attestation - Attestation I have personally seen and examined this patient.: Yes I have fully participated in the care of the patient.: Yes I have reviewed all pertinent clinical information, including history, physical exam and plan: Yes
--- NOTE | 2016-11-10 19:33 | CP.PCM.PN ---
Subjective - Date & Time of Evaluation Date of Evaluation: 11/10/16 Time of Evaluation: 10:30 - Subjective Subjective: Comfortable, afebrile, not in distress. Objective - Vital Signs/Intake and Output Vital Signs (last 24 hours): Temp Pulse Resp BP Pulse Ox 97.6 F 67 19 143/90 97 11/10/16 07:30 11/10/16 09:37 11/10/16 07:30 11/10/16 09:37 11/10/16 07:30 Intake and Output: 11/10/16 11/11/16 18:59 06:59 Intake Total 780 Balance 780 - Medications Medications: Current Medications Acetaminophen (Tylenol 325mg Tab) 650 mg PO Q6H PRN PRN Reason: Pain, severe (8-10) Famotidine (Pepcid) 40 mg PO HS [facility] Last Admin: 11/09/16 23:06 Dose: 40 mg Glipizide (Glucotrol) 10 mg PO DAILY [facility] Last Admin: 11/10/16 09:37 Dose: 10 mg Piperacillin Sod/Tazobactam Sod (Zosyn 3.375 In Ns 100ml) 100 mls @ 200 mls/hr IVPB Q6 LISA PRN Reason: Protocol Stop: 11/17/16 12:01 Last Admin: 11/10/16 17:06 Dose: 200 mls/hr Ibuprofen (Motrin Tab) 600 mg PO Q8 PRN PRN Reason: Pain, moderate (4-7) Last Admin: 11/10/16 08:10 Dose: 600 mg Insulin Human Regular (Humulin R Low) 0 units SC ACHS [facility] Last Admin: 11/10/16 16:33 Dose: Not Given Lisinopril (Zestril) 10 mg PO DAILY [facility] Last Admin: 11/10/16 09:37 Dose: 10 mg Metformin HCl (Glucophage) 1,000 mg PO BID [facility] Last Admin: 11/10/16 17:06 Dose: 1,000 mg - Labs Labs: 11/10/16 07:50 11/10/16 07:50 PT 10.5 Seconds (9.9-11.8) 11/07/16 13:00 INR 0.97 (0.93-1.08) 11/07/16 13:00 APTT 29.6 Seconds (23.7-30.8) 11/07/16 13:00 - Constitutional Appears: Non-toxic, No Acute Distress - Head Exam Head Exam: NORMAL INSPECTION - Neck Exam Neck Exam: absent: Lymphadenopathy, Meningismus - Respiratory Exam Respiratory Exam: Decreased Breath Sounds - Cardiovascular Exam Cardiovascular Exam: +S1, +S2 - GI/Abdominal Exam GI & Abdominal Exam: Soft. absent: Tenderness Assessment and Plan - Assessment and Plan (Free Text) Plan: Assessment Infected left hallux ulcer, suspicious for osteomyelitis, growing MSSA, beta hemolytic strep, gram negative bacilli Chronic renal failure DM HTN obesity with BMI 31 history of maculopapular rash Plan Bone scan only shows cellulitis - will have surgery on Thursday to remove foreign body continue Zosyn Will monitor clinically
[2016-11-11] MEDS: Insulin Reg-LOW-Coverage SC SCH ×5 (00:09→22:07)
[2016-11-11] MEDS: Piperacillin/Tazobact 3.375 gm 100 ML IVPB SCH ×3 (00:10→17:51)
[2016-11-11 07:51] LABS: ADD MANUAL DIFF? NO
[2016-11-11 07:56] LABS: BASO # 0.01 K/mm3 (0.0-2.0); BASO % 0.1 % (0.0-3.0); EOS # 0.2 (0.0-0.7); EOS % 2.9 % (1.5-5.0); GRAN # 4.87 (1.4-6.5); GRAN % 71.8 % (50.0-68.0); HEMATOCRIT 34.3 % (42.0-52.0); LYMPH # 1.3 (1.2-3.4); LYMPH % 18.4 % (22.0-35.0); MEAN CELL VOLUME 85.1 fL (80.0-105.0); MEAN CORPUSCULAR HGB CONC 35.3 g/dl (31.0-37.0); MEAN PLATELET VOLUME 10.4 fl (7.0-11.0); MONO # 0.5 (0.1-0.6); MONO % 6.8 % (1.0-6.0); PLATELET COUNT 333 10^3/uL (120.0-450.0); WHITE BLOOD COUNT 6.8 10^3/ul (4.5-11.0)
[2016-11-11 08:11] LABS: ALKALINE PHOSPHATASE 77 U/L (38-133); ALT/SGPT 43 U/L (7-56); AST/SGOT 43 U/L (15-59); BILIRUBIN,TOTAL 0.3 mg/dL (0.2-1.3); BLOOD UREA NITROGEN 12 mg/dL (7-21); CALCIUM 8.3 mg/dL (8.4-10.5); CARBON DIOXIDE 22 mmol/L (21-33); CHLORIDE 108 mmol/L (95-110); GFR AFRICAN-AMERICAN > 60; GLUCOSE,RANDOM 223 mg/dL (70-110); POTASSIUM 4.5 mmol/L (3.6-5.0); SODIUM 136 mmol/L (132-148); TOTAL PROTEIN 6.4 g/dL (5.8-8.3)
--- NOTE | 2016-11-11 09:54 | CP.PCM.PN ---
<Horacio Mahoney - Last Filed: 11/11/16 16:46> Subjective - Date & Time of Evaluation Date of Evaluation: 11/11/16 Time of Evaluation: 08:00 - Subjective Subjective: PGY1 Hospitalist Note Pt. seen and examined at bedside. Today he has not complaints and denies headaches, fevers, chills vision/hearing loss, neck pain, chest pain, difficulty breathing, abdominal pain, nausea, vomiting, diarrhea, any GI/ symptoms or back pain. Surgery to remove likely metallic foreign body is scheduled for Thursday. Objective - Vital Signs/Intake and Output Vital Signs (last 24 hours): Temp Pulse Resp BP Pulse Ox 98.5 F 73 20 125/79 100 11/11/16 08:17 11/11/16 09:44 11/11/16 08:17 11/11/16 09:44 11/11/16 08:17 Intake and Output: 11/11/16 11/11/16 06:59 18:59 Intake Total 660 Balance 660 - Medications Medications: Current Medications Acetaminophen (Tylenol 325mg Tab) 650 mg PO Q6H PRN PRN Reason: Pain, severe (8-10) Famotidine (Pepcid) 40 mg PO HS [facility] Last Admin: 11/10/16 21:56 Dose: 40 mg Glipizide (Glucotrol) 10 mg PO DAILY [facility] Last Admin: 11/11/16 09:44 Dose: 10 mg Piperacillin Sod/Tazobactam Sod (Zosyn 3.375 In Ns 100ml) 100 mls @ 200 mls/hr IVPB Q6 LISA PRN Reason: Protocol Stop: 11/17/16 12:01 Last Admin: 11/11/16 00:10 Dose: 200 mls/hr Ibuprofen (Motrin Tab) 600 mg PO Q8 PRN PRN Reason: Pain, moderate (4-7) Last Admin: 11/10/16 08:10 Dose: 600 mg Insulin Human Regular (Humulin R Low) 0 units SC ACHS [facility] Last Admin: 11/11/16 08:16 Dose: 2 units Lisinopril (Zestril) 10 mg PO DAILY [facility] Last Admin: 11/11/16 09:44 Dose: 10 mg Metformin HCl (Glucophage) 1,000 mg PO BID [facility] Last Admin: 11/11/16 09:44 Dose: 1,000 mg - Labs Labs: 11/11/16 07:30 11/11/16 07:30 PT 10.5 Seconds (9.9-11.8) 11/07/16 13:00 INR 0.97 (0.93-1.08) 11/07/16 13:00 APTT 29.6 Seconds (23.7-30.8) 11/07/16 13:00 - Constitutional Constitutional: absent: Fever, Chills - EENT Eyes: absent: Blurred Vision Nose/Mouth/Throat: absent: Nasal Congestion - Cardiovascular Cardiovascular: absent: Chest Pain, Chest Pain at Rest - Respiratory Respiratory: absent: Cough, Dyspnea, Dyspnea on Exertion - Gastrointestinal Gastrointestinal: absent: Abdominal Pain, Nausea, Vomiting - Musculoskeletal Musculoskeletal: absent: Abnormal Gait - Neurological Neurological: absent: Abnormal Gait, Confusion, Weakness - Psychiatric Psychiatric: absent: Anxiety, Depression - Hematologic/Lymphatic Hematologic: absent: Easy Bleeding, Easy Bruising Assessment and Plan - Assessment and Plan (Free Text) Assessment: 51M with left great toe ulcer likely 2/2 to uncontrolled DM Plan: Left Great Toe Ulceration -Zosyn -Wound Culture and Gram Stain -Staph aureus -Beta Hem Strep Grp B -Culture Foot -Staph aureus -Blood -No growth after 48 hours -Xray - Left foot - findings suggest acute osteomyelitis - small radiopaque foreign body/needle fragment plantar aspect left adjacent to the 1st metatarsal -Podiatry Consult - Dr. Beaulieu - help appreciated -was able to probe down to bone -Bone Scan does not show evidence for Osteomyelitis - please see full report -Pt. scheduled for OR on Thursday to remove foreign body -need medical clearance -EKG on 11/11 showed NSR -CXR on 11/05/16 showed No Active Disease and Normal Heart -CXR on 11/11/16 showed No Active Disease and Normal Heart -Pt. has a Detsky score of 0 and is considered a low cardiac risk for noncardiac surgery -ID Consult - Dr. Cota - help appreciated -Continue Zosyn -will monitor clinically Diabetes stable -Continue Metformin 1000mg PO BID -Continue Glipizide 10mg PO daily -ISS Low AC LISA Hypertension -Zestril 10mg PO daily -UDS PPX -GI - Pepcid -DVT - SCD's <Rajinder Mendoza B - Last Filed: 11/13/16 16:18> Objective - Vital Signs/Intake and Output Vital Signs (last 24 hours): Temp Pulse Resp BP Pulse Ox 97.7 F 70 20 141/90 96 11/13/16 07:30 11/13/16 10:00 11/13/16 07:30 11/13/16 10:00 11/13/16 07:30 Intake and Output: 11/13/16 11/13/16 06:59 18:59 Intake Total 600 Balance 600 - Medications Medications: Current Medications Acetaminophen (Tylenol 325mg Tab) 650 mg PO Q4H PRN PRN Reason: Pain, Mild (1-3) Famotidine (Pepcid) 40 mg PO HS [facility] Last Admin: 11/13/16 02:16 Dose: 40 mg Glipizide (Glucotrol) 10 mg PO DAILY [facility] Last Admin: 11/13/16 10:01 Dose: 10 mg Piperacillin Sod/Tazobactam Sod (Zosyn 3.375 In Ns 100ml) 100 mls @ 200 mls/hr IVPB Q6 [facility] PRN Reason: Protocol Stop: 11/17/16 12:01 Last Admin: 11/13/16 12:50 Dose: 200 mls/hr Insulin Human Regular (Humulin R Low) 0 units SC ACHS [facility] Last Admin: 11/13/16 12:10 Dose: 2 units Ketorolac Tromethamine (Toradol) 15 mg IM Q6 PRN PRN Reason: Pain, moderate (4-7) Stop: 11/14/16 09:00 Last Admin: 11/13/16 15:40 Dose: 15 mg Lisinopril (Zestril) 10 mg PO DAILY [facility] Last Admin: 11/13/16 10:00 Dose: 10 mg Metformin HCl (Glucophage) 1,000 mg PO BID [facility] Last Admin: 11/13/16 10:00 Dose: 1,000 mg Ondansetron HCl (Zofran Inj) 4 mg IVP ONCE PRN PRN Reason: Nausea/Vomiting - Labs Labs: 11/12/16 06:45 11/12/16 06:45 PT 10.7 Seconds (9.9-11.8) 11/12/16 06:45 INR 0.99 (0.93-1.08) 11/12/16 06:45 APTT 29.6 Seconds (23.7-30.8) 11/07/16 13:00 Attending/Attestation - Attestation I have personally seen and examined this patient.: Yes I have fully participated in the care of the patient.: Yes I have reviewed all pertinent clinical information, including history, physical exam and plan: Yes Notes (Text): I have seen and examined patient at bedside. Briefly this is 51 year old male with history of DM-2, HTN, Obesity who got admitted for evaluation of left big toe pain and swelling s/p injury and found to have infected hallux ulcer suspicious for osteomyelitis however bone scan only shows osteomyelitis and its growing MSSA and beta hemolytic strep on zosyn. Bone scan also revealed presence of metallic object in left foot. He will have surgery on Thursday to remove FB. Continue metformin and glipizide. Upon discharge patient will follow up in [facility] clinic. Dr Rajinder Mendoza
--- NOTE | 2016-11-11 12:38 | CARD ---
APPROVED REPORT EKG Measurement Heart [id number] <Conclusion> Normal sinus rhythm Normal ECG
--- NOTE | 2016-11-11 15:25 | RAD ---
HISTORY: pre op COMPARISON: 11/04/2016 FINDINGS: LUNGS: No active pulmonary disease. PLEURA: No significant pleural effusion identified, no pneumothorax apparent. CARDIOVASCULAR: Normal. OSSEOUS STRUCTURES: No significant abnormalities. VISUALIZED UPPER ABDOMEN: Normal. OTHER FINDINGS: None. IMPRESSION: No active disease.
--- NOTE | 2016-11-11 20:48 | CP.PCM.PN ---
Subjective - Date & Time of Evaluation Date of Evaluation: 11/11/16 Time of Evaluation: 11:45 - Subjective Subjective: Patient is scheduled for OR tomorrow. Less pain in the foot, no fevers, no nausea, no diarrhea. Objective - Vital Signs/Intake and Output Vital Signs (last 24 hours): Temp Pulse Resp BP Pulse Ox 97.9 F 77 20 142/92 H 95 11/11/16 16:00 11/11/16 16:00 11/11/16 16:00 11/11/16 16:00 11/11/16 16:00 Intake and Output: 11/11/16 11/12/16 18:59 06:59 Intake Total 1160 Balance 1160 - Medications Medications: Current Medications Acetaminophen (Tylenol 325mg Tab) 650 mg PO Q6H PRN PRN Reason: Pain, severe (8-10) Famotidine (Pepcid) 40 mg PO HS [facility] Last Admin: 11/10/16 21:56 Dose: 40 mg Glipizide (Glucotrol) 10 mg PO DAILY [facility] Last Admin: 11/11/16 09:44 Dose: 10 mg Piperacillin Sod/Tazobactam Sod (Zosyn 3.375 In Ns 100ml) 100 mls @ 200 mls/hr IVPB Q6 [facility] PRN Reason: Protocol Stop: 11/17/16 12:01 Last Admin: 11/11/16 17:51 Dose: 200 mls/hr Ibuprofen (Motrin Tab) 600 mg PO Q8 PRN PRN Reason: Pain, moderate (4-7) Last Admin: 11/11/16 09:56 Dose: 600 mg Insulin Human Regular (Humulin R Low) 0 units SC ACHS [facility] Last Admin: 11/11/16 17:50 Dose: Not Given Lisinopril (Zestril) 10 mg PO DAILY [facility] Last Admin: 11/11/16 09:44 Dose: 10 mg Metformin HCl (Glucophage) 1,000 mg PO BID [facility] Last Admin: 11/11/16 17:50 Dose: 1,000 mg - Labs Labs: 11/11/16 07:30 11/11/16 07:30 PT 10.5 Seconds (9.9-11.8) 11/07/16 13:00 INR 0.97 (0.93-1.08) 11/07/16 13:00 APTT 29.6 Seconds (23.7-30.8) 11/07/16 13:00 - Constitutional Appears: Non-toxic, No Acute Distress - Head Exam Head Exam: NORMAL INSPECTION - ENT Exam ENT Exam: Mucous Membranes Moist - Neck Exam Neck Exam: absent: Lymphadenopathy, Meningismus - Respiratory Exam Respiratory Exam: Decreased Breath Sounds - Cardiovascular Exam Cardiovascular Exam: +S1, +S2 - GI/Abdominal Exam GI & Abdominal Exam: Soft. absent: Tenderness - Extremities Exam Additional comments: left foot with dressings in place Assessment and Plan - Assessment and Plan (Free Text) Plan: Assessment Infected left hallux ulcer, suspicious for osteomyelitis, growing MSSA, beta hemolytic strep; gram negative bacilli did not grow Chronic renal failure DM HTN obesity with BMI 31 history of maculopapular rash Plan Bone scan only shows cellulitis - will have surgery on Thursday to remove foreign body continue Zosyn Will monitor clinically
[2016-11-12] MEDS: Piperacillin/Tazobact 3.375 gm 100 ML IVPB SCH ×4 (00:19→23:08)
[2016-11-12 06:57] LABS: ADD MANUAL DIFF? NO
[2016-11-12 07:15] LABS: ALKALINE PHOSPHATASE 75 U/L (38-133); ALT/SGPT 58 U/L (7-56); AST/SGOT 48 U/L (15-59); BILIRUBIN,TOTAL 0.5 mg/dL (0.2-1.3); BLOOD UREA NITROGEN 11 mg/dL (7-21); CALCIUM 8.4 mg/dL (8.4-10.5); CARBON DIOXIDE 23 mmol/L (21-33); CHLORIDE 107 mmol/L (95-110); GFR AFRICAN-AMERICAN > 60; GLUCOSE,RANDOM 187 mg/dL (70-110); POTASSIUM 4.4 mmol/L (3.6-5.0); SODIUM 136 mmol/L (132-148); TOTAL PROTEIN 6.5 g/dL (5.8-8.3)
[2016-11-12 07:40] LABS: BASO # 0.02 K/mm3 (0.0-2.0); BASO % 0.3 % (0.0-3.0); EOS # 0.3 (0.0-0.7); EOS % 4.3 % (1.5-5.0); GRAN # 4.54 (1.4-6.5); GRAN % 69.7 % (50.0-68.0); HEMATOCRIT 35.1 % (42.0-52.0); LYMPH # 1.2 (1.2-3.4); LYMPH % 17.9 % (22.0-35.0); MEAN CELL VOLUME 85.6 fL (80.0-105.0); MEAN PLATELET VOLUME 10.6 fl (7.0-11.0); MONO # 0.5 (0.1-0.6); MONO % 7.8 % (1.0-6.0); PLATELET COUNT 367 10^3/uL (120.0-450.0); WHITE BLOOD COUNT 6.5 10^3/ul (4.5-11.0)
[2016-11-12 07:43] LABS: INR 0.99 (0.93-1.08)
[2016-11-12] MEDS: Insulin Reg-LOW-Coverage SC SCH ×2 (08:14→12:21)
--- NOTE | 2016-11-12 08:26 | PN ---
DATE: 11/11/2016 A 51-year-old diabetic male seen at bedside for continued evaluation and management of a diabetic lef t hallux ulceration with foreign body in left first interspace. The patient is sent for surgery to incise and remove the metallic shard tomorrow at 4:30 p.m. VITAL SIGNS: Reveal temperature of 98.5, pulse rate of 86, blood pressure 125/49, respiratory rate o f 20. LABORATORY FINDINGS: Reveal a white count of 6.8, hemoglobin of 12.1, hematocrit of 34.3, platelet c ount of 331. Left hallux microbiology report reveals Staphylococcus aureus growth. X-ray findings reveal a small needle fragment at the first interspace. Bone scan reveals no evidence of acute osseous process for osteomyelitis. OBJECTIVE: Palpable pedal pulses noted bilaterally. The patient is unable to detect 5.07 gram monof ilament wire testing bilaterally in lower extremities. The skin presents thin, shiny, and discolored bilaterally. Left hallux presents with full thickness ulcerations at the distal plantar aspect of t he toe. The base of the ulcerations is a mixture of fibrotic and granular tissue with minimal serosa nguineous fluid noted. There is no sinus tracking noted. No probing to bone. However, the entire d igit is edematous and erythematous. ASSESSMENT: A 51-year-old diabetic male with a full thickness ulceration on his left hallux secondar y to diabetic neuropathy and presence of a metallic foreign body in the left first interspace. PLAN: The patient's wound was cleansed with normal sterile saline and application of Xeroform, and a dry sterile dressing was applied. We will keep the patient n.p.o. after breakfast tomorrow, as he i s scheduled for incision and removal of metallic shard at 4:30 p.m. Thursday. The patient will cont inue with IV antibiotics, as per infectious disease, and the patient will be seen and followed daily. Saeed Vera DPM cc: [id number] TT: 11/11/2016 15:30:02 Confirmation # [id number] Dictation # [id number] jn
[2016-11-12] MEDS ORDERED: Lidocaine 2% Inj (20ml) ONE (16:03)
[2016-11-12] MEDS ORDERED: Bupivacaine 0.5% Inj(30mL) ONE (16:03)
--- NOTE | 2016-11-12 16:15 | CP.PCM.PN ---
<CamposBlaineDulce - Last Filed: 11/12/16 16:11> Subjective - Date & Time of Evaluation Date of Evaluation: 11/12/16 Time of Evaluation: 16:00 - Subjective Subjective: 51 yo diabetic male patient S&E at bedside for preoperative evaluation of left foot. Pt does complain of some slight pain to the foot today, however he does say it is mild. Says he received the surgical shoe yesterday and has been using that at all times for ambulation. Denies any acute events overnight, deneis f/n/ v/c/sob/cp. Admits to being NPO since breakfast this AM. Denies any other complaints at this time. Objective - Vital Signs/Intake and Output Vital Signs (last 24 hours): Temp Pulse Resp BP Pulse Ox 98 F 75 20 129/80 97 11/12/16 09:11 11/12/16 09:34 11/12/16 09:11 11/12/16 09:34 11/12/16 09:11 Intake and Output: 11/12/16 11/12/16 06:59 18:59 Intake Total 901 640 Balance 901 640 - Medications Medications: Current Medications Acetaminophen (Tylenol 325mg Tab) 650 mg PO Q6H PRN PRN Reason: Pain, severe (8-10) Famotidine (Pepcid) 40 mg PO HS [facility] Last Admin: 11/11/16 22:09 Dose: 40 mg Glipizide (Glucotrol) 10 mg PO DAILY [facility] Last Admin: 11/12/16 09:34 Dose: Not Given Piperacillin Sod/Tazobactam Sod (Zosyn 3.375 In Ns 100ml) 100 mls @ 200 mls/hr IVPB Q6 [facility] PRN Reason: Protocol Stop: 11/17/16 12:01 Last Admin: 11/12/16 12:22 Dose: 200 mls/hr Ibuprofen (Motrin Tab) 600 mg PO Q8 PRN PRN Reason: Pain, moderate (4-7) Last Admin: 11/12/16 11:09 Dose: 600 mg Insulin Human Regular (Humulin R Low) 0 units SC ACHS [facility] Last Admin: 11/12/16 12:21 Dose: Not Given Lisinopril (Zestril) 10 mg PO DAILY [facility] Last Admin: 11/12/16 09:34 Dose: 10 mg Metformin HCl (Glucophage) 1,000 mg PO BID [facility] Last Admin: 11/12/16 09:34 Dose: Not Given - Labs Labs: 11/12/16 06:45 11/12/16 06:45 PT 10.7 Seconds (9.9-11.8) 11/12/16 06:45 INR 0.99 (0.93-1.08) 11/12/16 06:45 APTT 29.6 Seconds (23.7-30.8) 11/07/16 13:00 - Constitutional Appears: Well, Non-toxic, No Acute Distress - Extremities Exam Additional comments: Left foot focused: Dressing to foot appears clean dry and intact with no strikethrough evident. - Neurological Exam Neurological Exam: Alert, Awake, Oriented x3 - Psychiatric Exam Psychiatric exam: Normal Affect, Normal Mood Assessment and Plan - Assessment and Plan (Free Text) Assessment: 51 yo diabetic male patient w/ full thickness ulceration of left hallux and foreign body of plantar forefoot Plan: -Pt S&E at bedside in [facility] -All questions and concerns addressed with the patient -NPO status confirmed and maintained -For OR today for removal of foreign body left foot -Podiatry will continue to follow post-operatively <Jeanette Beaulieu - Last Filed: 11/23/16 16:44> Objective - Vital Signs/Intake and Output Vital Signs (last 24 hours): Temp Pulse Resp BP Pulse Ox 98.1 F 73 20 145/91 H 97 11/14/16 08:09 11/14/16 10:45 11/14/16 08:09 11/14/16 10:45 11/14/16 08:09 - Labs Labs: 11/14/16 07:00 11/14/16 07:00 PT 10.7 Seconds (9.9-11.8) 11/12/16 06:45 INR 0.99 (0.93-1.08) 11/12/16 06:45 APTT 29.6 Seconds (23.7-30.8) 11/07/16 13:00 Attending/Attestation - Attestation I have personally seen and examined this patient.: Yes I have fully participated in the care of the patient.: Yes I have reviewed all pertinent clinical information, including history, physical exam and plan: Yes
[2016-11-12] MEDS ORDERED: HYDROmorphone 0.5 mg/0.5 ml ISec IVP PRN (16:18)
[2016-11-12] MEDS ORDERED: Midazolam 2 MG/2 ML VIAL ONE (16:21)
[2016-11-12] MEDS ORDERED: Gentamicin 80 mg/2mL Inj. ONE (16:21)
[2016-11-12] MEDS ORDERED: Propofol 10 mg/ml Inj (20 ML) ONE ×2 (16:21→17:13)
[2016-11-12] MEDS ORDERED: Lidocaine 1% Inj (20ml) ONE (16:22)
[2016-11-12] MEDS ORDERED: Sodium Chloride 0.9% 1,000 ML IV SCH ×3 (16:30→19:15)
--- NOTE | 2016-11-12 17:22 | CP.PCM.PN ---
Subjective - Date & Time of Evaluation Date of Evaluation: 11/12/16 Time of Evaluation: 12:05 - Subjective Subjective: Patient is for OR today, no fevers overnight, not in distress. Objective - Vital Signs/Intake and Output Vital Signs (last 24 hours): Temp Pulse Resp BP Pulse Ox 99 F 74 20 159/97 H 99 11/12/16 16:11 11/12/16 16:11 11/12/16 16:11 11/12/16 16:11 11/12/16 16:11 Intake and Output: 11/12/16 11/12/16 06:59 18:59 Intake Total 901 640 Balance 901 640 - Medications Medications: Current Medications Acetaminophen (Tylenol 325mg Tab) 650 mg PO Q6H PRN PRN Reason: Pain, severe (8-10) Famotidine (Pepcid) 40 mg PO HS [facility] Last Admin: 11/11/16 22:09 Dose: 40 mg Glipizide (Glucotrol) 10 mg PO DAILY [facility] Last Admin: 11/12/16 09:34 Dose: Not Given Hydromorphone HCl (Dilaudid) 0.5 mg IVP Q15M PRN PRN Reason: Pain, moderate (4-7) Stop: 11/12/16 18:18 Piperacillin Sod/Tazobactam Sod (Zosyn 3.375 In Ns 100ml) 100 mls @ 200 mls/hr IVPB Q6 [facility] PRN Reason: Protocol Stop: 11/17/16 12:01 Last Admin: 11/12/16 12:22 Dose: 200 mls/hr Sodium Chloride (Sodium Chloride 0.9%) 1,000 mls @ 75 mls/hr IV .[id number] [facility] Stop: 11/12/16 18:31 Ibuprofen (Motrin Tab) 600 mg PO Q8 PRN PRN Reason: Pain, moderate (4-7) Last Admin: 11/12/16 11:09 Dose: 600 mg Insulin Human Regular (Humulin R Low) 0 units SC ACHS [facility] Last Admin: 11/12/16 12:21 Dose: Not Given Lisinopril (Zestril) 10 mg PO DAILY [facility] Last Admin: 11/12/16 09:34 Dose: 10 mg Metformin HCl (Glucophage) 1,000 mg PO BID [facility] Last Admin: 11/12/16 09:34 Dose: Not Given - Labs Labs: 11/12/16 06:45 11/12/16 06:45 PT 10.7 Seconds (9.9-11.8) 11/12/16 06:45 INR 0.99 (0.93-1.08) 11/12/16 06:45 APTT 29.6 Seconds (23.7-30.8) 11/07/16 13:00 - Constitutional Appears: Non-toxic, No Acute Distress - Head Exam Head Exam: NORMAL INSPECTION - ENT Exam ENT Exam: Mucous Membranes Moist - Neck Exam Neck Exam: absent: Lymphadenopathy, Meningismus - Respiratory Exam Respiratory Exam: Decreased Breath Sounds - Cardiovascular Exam Cardiovascular Exam: +S1, +S2 - GI/Abdominal Exam GI & Abdominal Exam: Soft. absent: Tenderness - Extremities Exam Additional comments: left foot with dressings in place Assessment and Plan - Assessment and Plan (Free Text) Plan: Assessment Infected left hallux ulcer, suspicious for osteomyelitis, growing MSSA, beta hemolytic strep; gram negative bacilli did not grow Chronic renal failure DM HTN obesity with BMI 31 history of maculopapular rash Plan Bone scan only shows cellulitis - will have surgery today to remove foreign body - follow up OR findings continue Zosyn Will continue to monitor clinically
--- NOTE | 2016-11-12 18:49 | PCM.SURG1 ---
Surgeon's Initial Post Op Note - Surgeon's Notes Surgeon: Dr. Beaulieu Risk Mgr: Dr. Gasca PGY-1 Type of Anesthesia: IV Sedation, Local Anesthesia Administered By: Dr. Clark Pre-Operative Diagnosis: foreign body of left foot Operative Findings: see operative report Post-Operative Diagnosis: same Operation Performed: removal of foreign body left foot Specimen/Specimens Removed: metal shard left foot Estimated Blood Loss: EBL {In ML}: 20 Blood Products Given: N/A Drains Used: No Drains Post-Op Condition: Good Date of Surgery/Procedure: 11/12/16 Time of Surgery/Procedure: 16:45
[2016-11-12] MEDS ORDERED: Oxycodone/Acetaminophen 5/325 mg Tab PO PRN ×2 (18:50)
[2016-11-12 19:08] VITALS: RESP 20
--- NOTE | 2016-11-12 21:10 | CP.PCM.PN ---
<Horacio Mahoney - Last Filed: 11/12/16 21:05> Subjective - Date & Time of Evaluation Date of Evaluation: 11/12/16 Time of Evaluation: 07:20 - Subjective Subjective: PGY1 Hospitalist Note Pt. seen and examined at bedside. Today he has not complaints and denies headaches, fevers, chills vision/hearing loss, neck pain, chest pain, difficulty breathing, abdominal pain, nausea, vomiting, diarrhea, any GI/ symptoms or back pain. Surgery to remove likely metallic foreign body is scheduled for today. Objective - Vital Signs/Intake and Output Vital Signs (last 24 hours): Temp Pulse Resp BP Pulse Ox 97.6 F 68 20 166/99 H 97 11/12/16 19:00 11/12/16 19:00 11/12/16 19:00 11/12/16 19:00 11/12/16 19:00 Intake and Output: 11/12/16 11/13/16 18:59 06:59 Intake Total 740 Balance 740 - Medications Medications: Current Medications Acetaminophen (Tylenol 325mg Tab) 650 mg PO Q4H PRN PRN Reason: Pain, Mild (1-3) Famotidine (Pepcid) 40 mg PO HS [facility] Last Admin: 11/11/16 22:09 Dose: 40 mg Glipizide (Glucotrol) 10 mg PO DAILY [facility] Last Admin: 11/12/16 09:34 Dose: Not Given Piperacillin Sod/Tazobactam Sod (Zosyn 3.375 In Ns 100ml) 100 mls @ 200 mls/hr IVPB Q6 [facility] PRN Reason: Protocol Stop: 11/17/16 12:01 Last Admin: 11/12/16 12:22 Dose: 200 mls/hr Sodium Chloride (Sodium Chloride 0.9%) 1,000 mls @ 75 mls/hr IV .[id number] [facility] Insulin Human Regular (Humulin R Low) 0 units SC ACHS [facility] Last Admin: 11/12/16 12:21 Dose: Not Given Lisinopril (Zestril) 10 mg PO DAILY [facility] Last Admin: 11/12/16 09:34 Dose: 10 mg Metformin HCl (Glucophage) 1,000 mg PO BID [facility] Last Admin: 11/12/16 09:34 Dose: Not Given Ondansetron HCl (Zofran Inj) 4 mg IVP ONCE PRN PRN Reason: Nausea/Vomiting Oxycodone/Acetaminophen (Percocet 5/325 Mg Tab) 2 tab PO Q4H PRN PRN Reason: Pain, severe (8-10) Stop: 11/15/16 18:51 Oxycodone/Acetaminophen (Percocet 5/325 Mg Tab) 1 tab PO Q4H PRN PRN Reason: Pain, moderate (4-7) Stop: 11/15/16 18:51 - Labs Labs: 11/12/16 06:45 11/12/16 06:45 PT 10.7 Seconds (9.9-11.8) 11/12/16 06:45 INR 0.99 (0.93-1.08) 11/12/16 06:45 APTT 29.6 Seconds (23.7-30.8) 11/07/16 13:00 - Constitutional Constitutional: absent: Fever, Chills - EENT Eyes: absent: Blurred Vision Nose/Mouth/Throat: absent: Nasal Congestion - Cardiovascular Cardiovascular: absent: Chest Pain, Chest Pain at Rest - Respiratory Respiratory: absent: Cough, Dyspnea, Dyspnea on Exertion - Gastrointestinal Gastrointestinal: absent: Abdominal Pain, Nausea, Vomiting - Musculoskeletal Musculoskeletal: absent: Abnormal Gait - Neurological Neurological: absent: Abnormal Gait, Confusion, Weakness - Psychiatric Psychiatric: absent: Anxiety, Depression - Hematologic/Lymphatic Hematologic: absent: Easy Bleeding, Easy Bruising Assessment and Plan - Assessment and Plan (Free Text) Assessment: 51M with left great toe ulcer likely 2/2 to uncontrolled DM Plan: Left Great Toe Ulceration -Zosyn -Wound Culture and Gram Stain -Staph aureus -Beta Hem Strep Grp B -Culture Foot -Staph aureus -Blood -No growth after 48 hours -Xray - Left foot - findings suggest acute osteomyelitis - small radiopaque foreign body/needle fragment plantar aspect left adjacent to the 1st metatarsal -Podiatry Consult - Dr. Beaulieu - help appreciated -was able to probe down to bone -Bone Scan does not show evidence for Osteomyelitis - please see full report -Pt. scheduled for OR on Thursday to remove foreign body -need medical clearance -EKG on 11/11 showed NSR -CXR on 11/05/16 showed No Active Disease and Normal Heart -CXR on 5/23/17 showed No Active Disease and Normal Heart -Pt. has a Detsky score of 0 and is considered a low cardiac risk for noncardiac surgery -Metal Shard removed from foot, post op condition is good -ID Consult - Dr. Cota - help appreciated -Continue Zosyn -will monitor clinically Diabetes stable -Continue Metformin 1000mg PO BID -Continue Glipizide 10mg PO daily -ISS Low AC LISA Hypertension -Zestril 10mg PO daily -UDS PPX -GI - Pepcid -DVT - SCD's <RejiRajinder Angeles - Last Filed: 11/13/16 16:19> Objective - Vital Signs/Intake and Output Vital Signs (last 24 hours): Temp Pulse Resp BP Pulse Ox 97.7 F 70 20 141/90 96 11/13/16 07:30 11/13/16 10:00 11/13/16 07:30 11/13/16 10:00 11/13/16 07:30 Intake and Output: 11/13/16 11/13/16 06:59 18:59 Intake Total 600 Balance 600 - Medications Medications: Current Medications Acetaminophen (Tylenol 325mg Tab) 650 mg PO Q4H PRN PRN Reason: Pain, Mild (1-3) Famotidine (Pepcid) 40 mg PO HS [facility] Last Admin: 11/13/16 02:16 Dose: 40 mg Glipizide (Glucotrol) 10 mg PO DAILY [facility] Last Admin: 11/13/16 10:01 Dose: 10 mg Piperacillin Sod/Tazobactam Sod (Zosyn 3.375 In Ns 100ml) 100 mls @ 200 mls/hr IVPB Q6 [facility] PRN Reason: Protocol Stop: 11/17/16 12:01 Last Admin: 11/13/16 12:50 Dose: 200 mls/hr Insulin Human Regular (Humulin R Low) 0 units SC ACHS [facility] Last Admin: 11/13/16 12:10 Dose: 2 units Ketorolac Tromethamine (Toradol) 15 mg IM Q6 PRN PRN Reason: Pain, moderate (4-7) Stop: 11/14/16 09:00 Last Admin: 11/13/16 15:40 Dose: 15 mg Lisinopril (Zestril) 10 mg PO DAILY [facility] Last Admin: 11/13/16 10:00 Dose: 10 mg Metformin HCl (Glucophage) 1,000 mg PO BID [facility] Last Admin: 11/13/16 10:00 Dose: 1,000 mg Ondansetron HCl (Zofran Inj) 4 mg IVP ONCE PRN PRN Reason: Nausea/Vomiting - Labs Labs: 11/12/16 06:45 11/12/16 06:45 PT 10.7 Seconds (9.9-11.8) 11/12/16 06:45 INR 0.99 (0.93-1.08) 11/12/16 06:45 APTT 29.6 Seconds (23.7-30.8) 11/07/16 13:00 Attending/Attestation - Attestation I have personally seen and examined this patient.: Yes I have fully participated in the care of the patient.: Yes I have reviewed all pertinent clinical information, including history, physical exam and plan: Yes Notes (Text): I have seen and examined patient at bedside. Briefly this is 51 year old male with history of DM-2, HTN, Obesity who got admitted for evaluation of left big toe pain and swelling s/p injury and found to have infected hallux ulcer suspicious for osteomyelitis however bone scan only shows osteomyelitis and its growing MSSA and beta hemolytic strep on zosyn. Bone scan also revealed presence of metallic object in left foot. He will have surgery today to remove FB. He is NPO. Continue metformin and glipizide. Upon discharge patient will follow up in [facility] clinic. Dr Rajinder Mendoza
--- NOTE | 2016-11-12 21:16 | OP ---
PROCEDURE DATE: 11/12/2016 SURGEON: Jeanette Beaulieu DPM LIDDING MACHINE OPERATOR: Allison Tobin DPM, PGY-1. BEADER: Dr. Clark. ANESTHESIA: IV sedation plus local. PREOPERATIVE DIAGNOSIS: Foreign body of hallux left foot POSTOPERATIVE DIAGNOSIS: Foreign body of hallux left foot PROCEDURE PERFORMED: Removal of foreign body from left foot. INDICATIONS: The patient is a 51-year-old male with the above diagnosis. The patient has exhausted all conservative treatment at this time and now requires surgical intervention. The patient signed the consent after careful explanation of risks, benefits, complications and alternatives for surgical procedure. No guarantees were given nor implied. N.p.o. status was confirmed prior to taking patient to the OR. The patient is receiving IV Zosyn on the floors. PREPARATION: The patient was brought to the operating room and placed on the operating room table in the supine position. A well-padded pneumatic ankle tourniquet was placed to the patient's left ankle in a supramalleolar position. After induction of IV sedation, the patient received a total of 10 mL of a 1: 1 mixture of 0.5% Marcaine plain with 2% lidocaine plain in local block fashion to the left foot. Once local anesthesia was achieved, the left foot was then prepped and draped in usual sterile manner. Esmarch was not utilized for this procedure. A pneumatic ankle tourniquet was then inflated to 250 mmHg and the procedure began. DESCRIPTION OF PROCEDURE: At this time, intraoperative x-ray was utilized to visualize the foreign body in question which appeared small, thin and linear in nature. Next a #18 gauge needle was inserted into the plantar aspect of the first interspace of the left foot. Intraoperative x-ray was utilized to triangulate the tip of the 18 gauge needle with the foreign body. The 17 gauge needle was then removed. Using a #15 blade, a linear incision measuring approximately 5 cm was then made from the distal lateral aspect of the hallux extending proximally along the plantar aspect of the foot towards the first interspace. At this time, a hemostat was utilized to separate the subcutaneous tissue into the first interspace along the hallux down to the level of bone. Next a 2nd incision measuring approximately 1 cm in length was made just proximal and perpendicular to the previous incision with approx 1/2 cc of pus expressed. A tract was then noted between the 2 incisions. A hemostat was then introduced through this second incision and a hemostat was also introduced into the 1st incision. The hemostats were then used to triangulate the foreign body and once identified, the foreign body was then clamped with a hemostat and removed from the foot. Intraoperative x-ray was then used to confirm that the foreign body had been removed. The foreign body was then passed from the operative field. Next, the foot was copiously flushed with sterile saline solution. At this time, an ulceration which was noted to the plantar distal aspect of the toe was then debrided with a fresh #15 blade. The toe was then flushed again with sterile saline. At this time, #4-0 nylon suture was then utilized to reapproximate the skin edges of the surgical incision using simple suture technique. Iodoform packing was then utilized to pack the plantar proximal aspect of the wound to allow for drainage. The foot was then cleansed with sterile saline and dried thoroughly. Adaptic was then placed over the surgical incision site and then the foot was dressed with 4 x 4 gauze, ABDs, Kerlix and a lightly wrapped Coban dressing. It should be noted that the attending, Dr. Beaulieu, was present during the entire case. POSTOPERATIVE CONDITION: The patient tolerated the anesthesia and procedure well and was escorted to the recovery room with vital signs stable and neurovascular status intact to the left foot. The patient is advised to be nonweightbearing this evening and we will have physical therapy come to see the patient in the morning to evaluate gait with a surgical shoe. He may ambulate with full weightbearing to the heel in a surgical shoe. Podiatry will continue to follow the patient while he remains in house and he will follow up with Dr. Beaulieu at the wound care center following discharge. ALLISON TOBIN DPM Jeanette Beaulieu DPM cc: [id number] TT: 11/12/2016 21:15:30 jn MTDD
[2016-11-13] MEDS: Insulin Reg-LOW-Coverage SC SCH ×5 (02:15→21:42)
[2016-11-13] MEDS: Piperacillin/Tazobact 3.375 gm 100 ML IVPB SCH ×4 (05:37→23:14)
--- NOTE | 2016-11-13 08:52 | PN ---
DATE: 11/13/2016 This is a 51-year-old diabetic male seen status post 12 hours removal of foreign body, complicated fr om his left foot. The patient is a diabetic. He is resting at bedside. The patient states he had s ome pain last night. He took a Percocet, and his face swelled after taking the Percocet. The patien t's dressing was clean, dry, and intact. He did have some bleeding during the surgery last night, th us, the dressing was taken down to evaluate the wound. All of the sutures are intact around the toe. There was no longer any active bleeding except for when I pulled out the packing. There was just a little bit of oozing after pulling the packing. Otherwise, all the digits have a capillary refill, and the foot is warm to touch. LABORATORY DATA: The patient's labs are reviewed. There are no new labs for today. Microbiology: We did take a deep tissue culture in the OR after removal of the foreign body. There was some pink p us around the foreign body itself, and there was a desiccation of the tissues in the toe from the abs cess that was all cleaned during the surgery yesterday. His culture on 11/08 is positive for Staph an d beta hemolytic strep, which would be consistent with the abscess on the foreign body, and his bone scan was negative. His blood cultures so far are negative. VITAL SIGNS: This morning show a temperature of 97.6. The blood pressure is 166/99. Respirations a re 20. ASSESSMENT: A diabetic with neuropathy. PLAN OF TREATMENT: Dressing change done today. I would like the patient to stay 1 more day to make sure that there is no longer any active bleeding since it is a holiday weekend, and we will do anothe r dressing change tomorrow. He will then follow up on Thursday at the wound care center for dressing change and evaluation of the wound. Antibiotics will be as per infectious disease. In the meantime, I did order physical therapy to bring crutches to the patient. He does have a wedge shoe. However, he needs to be careful and diligent with as minimal weightbearing on that foot in the heel. Otherwi se, he risks opening his sutures, and he could go on to lose a digit or more. This was explained to the patient. I also am going to put a consult in for the shipping supervisor today since the patient really does not understand the diabetic diet. The patient will be seen in followup. Jeanette Beaulieu DPM cc: [id number] TT: 11/13/2016 08:52:05 Confirmation # [id number] Dictation # [id number] [email or web address]
--- NOTE | 2016-11-13 10:14 | CP.PCM.PN ---
<Horacio Mahoney - Last Filed: 11/13/16 23:50> Subjective - Date & Time of Evaluation Date of Evaluation: 11/13/16 Time of Evaluation: 08:00 - Subjective Subjective: PGY1 Hospitalist Note Pt. seen and examined at bedside. Today he has not complaints and denies headaches, fevers, chills vision/hearing loss, neck pain, chest pain, difficulty breathing, abdominal pain, nausea, vomiting, diarrhea, any GI/ symptoms or back pain. Surgery did not have any complications and podiatry is recommending another day due to bleeding from surgical site. Pt. also had a adverse reaction to Percocet. His face became swollen after taking the medication. It was stopped and added to his Allergy/Adv rxn list. Objective - Vital Signs/Intake and Output Vital Signs (last 24 hours): Temp Pulse Resp BP Pulse Ox 97.7 F 70 20 141/90 96 11/13/16 07:30 11/13/16 10:00 11/13/16 07:30 11/13/16 10:00 11/13/16 07:30 Intake and Output: 11/13/16 11/13/16 06:59 18:59 Intake Total 600 Balance 600 - Medications Medications: Current Medications Acetaminophen (Tylenol 325mg Tab) 650 mg PO Q4H PRN PRN Reason: Pain, Mild (1-3) Famotidine (Pepcid) 40 mg PO HS [facility] Last Admin: 11/13/16 02:16 Dose: 40 mg Glipizide (Glucotrol) 10 mg PO DAILY [facility] Last Admin: 11/13/16 10:01 Dose: 10 mg Piperacillin Sod/Tazobactam Sod (Zosyn 3.375 In Ns 100ml) 100 mls @ 200 mls/hr IVPB Q6 [facility] PRN Reason: Protocol Stop: 11/17/16 12:01 Last Admin: 11/13/16 05:37 Dose: 200 mls/hr Insulin Human Regular (Humulin R Low) 0 units SC ACHS [facility] Last Admin: 11/13/16 07:58 Dose: Not Given Ketorolac Tromethamine (Toradol) 15 mg IM Q6 PRN PRN Reason: Pain, moderate (4-7) Stop: 11/14/16 09:00 Lisinopril (Zestril) 10 mg PO DAILY [facility] Last Admin: 11/13/16 10:00 Dose: 10 mg Metformin HCl (Glucophage) 1,000 mg PO BID [facility] Last Admin: 11/13/16 10:00 Dose: 1,000 mg Ondansetron HCl (Zofran Inj) 4 mg IVP ONCE PRN PRN Reason: Nausea/Vomiting - Labs Labs: 11/12/16 06:45 11/12/16 06:45 PT 10.7 Seconds (9.9-11.8) 11/12/16 06:45 INR 0.99 (0.93-1.08) 11/12/16 06:45 APTT 29.6 Seconds (23.7-30.8) 11/07/16 13:00 - Constitutional Constitutional: absent: Fever, Chills - EENT Eyes: absent: Blurred Vision Nose/Mouth/Throat: absent: Nasal Congestion - Cardiovascular Cardiovascular: absent: Chest Pain, Chest Pain at Rest - Respiratory Respiratory: absent: Cough, Dyspnea, Dyspnea on Exertion - Gastrointestinal Gastrointestinal: absent: Abdominal Pain, Nausea, Vomiting - Musculoskeletal Musculoskeletal: absent: Abnormal Gait - Neurological Neurological: absent: Abnormal Gait, Confusion, Weakness - Psychiatric Psychiatric: absent: Anxiety, Depression - Hematologic/Lymphatic Hematologic: absent: Easy Bleeding, Easy Bruising Assessment and Plan - Assessment and Plan (Free Text) Assessment: 51M with left great toe ulcer likely 2/2 to uncontrolled DM Plan: Left Great Toe Ulceration -Zosyn -Wound Culture and Gram Stain -Staph aureus -Beta Hem Strep Grp B -Culture Foot -Staph aureus -Blood -No growth after 5 days -Xray - Left foot - findings suggest acute osteomyelitis - small radiopaque foreign body/needle fragment plantar aspect left adjacent to the 1st metatarsal -Podiatry Consult - Dr. Beaulieu - help appreciated -was able to probe down to bone -Bone Scan does not show evidence for Osteomyelitis - please see full report -Pt. scheduled for OR on Thursday to remove foreign body -Surgery had no complications, plan to discharge on Thursday -need medical clearance -EKG on 11/11 showed NSR -CXR on 11/05/16 showed No Active Disease and Normal Heart -CXR on 11/11/16 showed No Active Disease and Normal Heart -Pt. has a Detsky score of 0 and is considered a low cardiac risk for noncardiac surgery -Metal Shard removed from foot, post op condition is good -ID Consult - Dr. Cota - help appreciated -Continue Zosyn -will monitor clinically Diabetes stable -Continue Metformin 1000mg PO BID -Continue Glipizide 10mg PO daily -ISS Low AC LISA Hypertension -Zestril 10mg PO daily -UDS PPX -GI - Pepcid -DVT - SCD's <Rajinder Mendoza - Last Filed: 11/15/16 09:55> Objective - Vital Signs/Intake and Output Vital Signs (last 24 hours): Temp Pulse Resp BP Pulse Ox 98.1 F 73 20 145/91 H 97 11/14/16 08:09 11/14/16 10:45 11/14/16 08:09 11/14/16 10:45 11/14/16 08:09 - Labs Labs: 11/14/16 07:00 11/14/16 07:00 PT 10.7 Seconds (9.9-11.8) 11/12/16 06:45 INR 0.99 (0.93-1.08) 11/12/16 06:45 APTT 29.6 Seconds (23.7-30.8) 11/07/16 13:00 Attending/Attestation - Attestation I have personally seen and examined this patient.: Yes I have fully participated in the care of the patient.: Yes I have reviewed all pertinent clinical information, including history, physical exam and plan: Yes Notes (Text): I have seen and examined patient at bedside. Briefly this is 51 year old male with history of DM-2, HTN, Obesity who got admitted for evaluation of left big toe pain and swelling s/p injury and found to have infected hallux ulcer suspicious for osteomyelitis however bone scan only shows osteomyelitis and its growing MSSA and beta hemolytic strep on zosyn. Bone scan also revealed presence of metallic object in left foot. Yesterday he had a FB removal surgery. Discussed with podiatry team who recommended another day in the hospital to closely observe bleeding from surgical site. He is NPO. Continue metformin and glipizide. Upon discharge patient will follow up in [facility] clinic. Dr Rajinder Mendoza
--- NOTE | 2016-11-13 11:00 | RAD ---
PROCEDURE: Fluoroscopy up to 1 hour HISTORY: REMOVAL OF FOREIGN BODY UNDER FLUOROSCOPY (LEFT FOOT) COMPARISON: TECHNIQUE: Fluoroscopy was provided in the operating room. Two images were submitted FINDINGS: The study shows removal of a small metallic foreign body from the 1st digit IMPRESSION: As above
--- NOTE | 2016-11-13 20:52 | CP.PCM.PN ---
Subjective - Date & Time of Evaluation Date of Evaluation: 11/13/16 Time of Evaluation: 10:25 - Subjective Subjective: Comfortable in bed, had surgery yesterday. No fevers overnight. Objective - Vital Signs/Intake and Output Vital Signs (last 24 hours): Temp Pulse Resp BP Pulse Ox 97.7 F 88 20 162/88 H 98 11/13/16 16:00 11/13/16 16:00 11/13/16 16:00 11/13/16 16:00 11/13/16 16:00 - Medications Medications: Current Medications Acetaminophen (Tylenol 325mg Tab) 650 mg PO Q4H PRN PRN Reason: Pain, Mild (1-3) Famotidine (Pepcid) 40 mg PO HS [facility] Last Admin: 11/13/16 02:16 Dose: 40 mg Glipizide (Glucotrol) 10 mg PO DAILY [facility] Last Admin: 11/13/16 10:01 Dose: 10 mg Piperacillin Sod/Tazobactam Sod (Zosyn 3.375 In Ns 100ml) 100 mls @ 200 mls/hr IVPB Q6 [facility] PRN Reason: Protocol Stop: 11/17/16 12:01 Last Admin: 11/13/16 17:56 Dose: 200 mls/hr Insulin Human Regular (Humulin R Low) 0 units SC ACHS [facility] Last Admin: 11/13/16 16:55 Dose: Not Given Ketorolac Tromethamine (Toradol) 15 mg IM Q6 PRN PRN Reason: Pain, moderate (4-7) Stop: 11/14/16 09:00 Last Admin: 11/13/16 15:40 Dose: 15 mg Lisinopril (Zestril) 10 mg PO DAILY [facility] Last Admin: 11/13/16 10:00 Dose: 10 mg Metformin HCl (Glucophage) 1,000 mg PO BID [facility] Last Admin: 11/13/16 17:55 Dose: 1,000 mg Ondansetron HCl (Zofran Inj) 4 mg IVP ONCE PRN PRN Reason: Nausea/Vomiting - Labs Labs: 11/12/16 06:45 11/12/16 06:45 PT 10.7 Seconds (9.9-11.8) 11/12/16 06:45 INR 0.99 (0.93-1.08) 11/12/16 06:45 APTT 29.6 Seconds (23.7-30.8) 11/07/16 13:00 - Constitutional Appears: Non-toxic, No Acute Distress - Head Exam Head Exam: NORMAL INSPECTION - ENT Exam ENT Exam: Mucous Membranes Moist - Neck Exam Neck Exam: absent: Lymphadenopathy, Meningismus - Respiratory Exam Respiratory Exam: Decreased Breath Sounds - Cardiovascular Exam Cardiovascular Exam: +S1, +S2 - GI/Abdominal Exam GI & Abdominal Exam: Soft. absent: Tenderness - Extremities Exam Additional comments: left foot with dry dressings in place Assessment and Plan - Assessment and Plan (Free Text) Plan: Assessment Infected left hallux ulcer, growing MSSA, beta hemolytic strep; gram negative bacilli on gram stain did not grow, S/P debridement and removal of foreign body Chronic renal failure DM HTN obesity with BMI 31 history of maculopapular rash Plan Bone scan only shows cellulitis continue Zosyn Will continue to monitor clinically
[2016-11-14] MEDS: Insulin Reg-LOW-Coverage SC SCH ×3 (01:16→11:51)
[2016-11-14] MEDS: Piperacillin/Tazobact 3.375 gm 100 ML IVPB SCH ×2 (05:20→11:51)
[2016-11-14 07:27] LABS: ADD MANUAL DIFF? NO
[2016-11-14 07:33] LABS: BASO # 0.01 K/mm3 (0.0-2.0); BASO % 0.2 % (0.0-3.0); EOS # 0.3 (0.0-0.7); EOS % 3.8 % (1.5-5.0); GRAN # 4.52 (1.4-6.5); HEMATOCRIT 33.2 % (42.0-52.0); LYMPH # 1.2 (1.2-3.4); LYMPH % 18.5 % (22.0-35.0); MEAN CELL VOLUME 85.6 fL (80.0-105.0); MEAN CORPUSCULAR HEMOGLOBIN 29.6 pg (25.0-35.0); MEAN CORPUSCULAR HGB CONC 34.6 g/dl (31.0-37.0); MEAN PLATELET VOLUME 10.5 fl (7.0-11.0); MONO # 0.6 (0.1-0.6); MONO % 9.5 % (1.0-6.0); PLATELET COUNT 337 10^3/uL (120.0-450.0); RED CELL DISTRIBUTION WIDTH 13.2 % (11.5-14.5); WHITE BLOOD COUNT 6.6 10^3/ul (4.5-11.0)
[2016-11-14 07:40] LABS: BLOOD UREA NITROGEN 15 mg/dL (7-21); CALCIUM 7.9 mg/dL (8.4-10.5); CARBON DIOXIDE 22 mmol/L (21-33); CHLORIDE 108 mmol/L (95-110); GFR AFRICAN-AMERICAN > 60; GLUCOSE,RANDOM 183 mg/dL (70-110); POTASSIUM 4.1 mmol/L (3.6-5.0); SODIUM 136 mmol/L (132-148)
[2016-11-14 08:10] VITALS: BP 145/91; PULSE 73; TEMP 98.1; O2SAT 97
--- NOTE | 2016-11-14 12:06 | CP.PCM.PN ---
<Dulce Gasca - Last Filed: 11/14/16 12:02> Subjective - Date & Time of Evaluation Date of Evaluation: 11/14/16 Time of Evaluation: 11:30 - Subjective Subjective: 51 yo diabetic male patient S&E at bedside with Dr. Vera POD #2 removal of foreign body left foot. Pt seen resting comfortably in be bed at time of visit, appears to be in NAD. Does complain of some pain off and on to the left foot ( hallux) however he does say pain medication is helping. Tolerating diet, denies f/n/v/c/sob/cp. Denies any other complaints at this time. Is eager to return home today. Objective - Vital Signs/Intake and Output Vital Signs (last 24 hours): Temp Pulse Resp BP Pulse Ox 98.1 F 73 20 145/91 H 97 11/14/16 08:09 11/14/16 10:45 11/14/16 08:09 11/14/16 10:45 11/14/16 08:09 Intake and Output: 11/14/16 11/14/16 06:59 18:59 Intake Total 840 Balance 840 - Medications Medications: Current Medications Acetaminophen (Tylenol 325mg Tab) 650 mg PO Q4H PRN PRN Reason: Pain, Mild (1-3) Famotidine (Pepcid) 40 mg PO HS [facility] Last Admin: 11/13/16 21:46 Dose: 40 mg Glipizide (Glucotrol) 10 mg PO DAILY [facility] Last Admin: 11/14/16 10:45 Dose: 10 mg Piperacillin Sod/Tazobactam Sod (Zosyn 3.375 In Ns 100ml) 100 mls @ 200 mls/hr IVPB Q6 LISA PRN Reason: Protocol Stop: 11/17/16 12:01 Last Admin: 11/14/16 11:51 Dose: 200 mls/hr Insulin Human Regular (Humulin R Low) 0 units SC ACHS [facility] Last Admin: 11/14/16 11:51 Dose: 3 units Lisinopril (Zestril) 10 mg PO DAILY [facility] Last Admin: 11/14/16 10:45 Dose: 10 mg Metformin HCl (Glucophage) 1,000 mg PO BID [facility] Last Admin: 11/14/16 10:45 Dose: 1,000 mg Ondansetron HCl (Zofran Inj) 4 mg IVP ONCE PRN PRN Reason: Nausea/Vomiting - Labs Labs: 11/14/16 07:00 11/14/16 07:00 PT 10.7 Seconds (9.9-11.8) 11/12/16 06:45 INR 0.99 (0.93-1.08) 11/12/16 06:45 APTT 29.6 Seconds (23.7-30.8) 11/07/16 13:00 - Constitutional Appears: Well, Non-toxic, No Acute Distress - Extremities Exam Extremities Exam: absent: Calf Tenderness Additional comments: Left foot focused: VASC: DP pulse strongly palpable, PT pulse 1/4, skin temp runs warm to cool, cap refill < 3 sec to all digits, moderate non-pitting edema noted to hallux circumferentially NEURO: pedal sensation is grossly diminished DERM: surgical site appears well coapted with no sign of dehisence noted, there is dried sanguinous material noted to incision site, no purulence, no erythema, no drainage to bandage, no active bleeding, erythema is resolving MSK: slight tenderness noted to surgical incision site. - Neurological Exam Neurological Exam: Alert, Awake, Oriented x3 - Psychiatric Exam Psychiatric exam: Normal Affect, Normal Mood Assessment and Plan - Assessment and Plan (Free Text) Assessment: 51 yo diabetic male patient POD # 2 removal foreign body left hallux. Plan: -Pt S&E at bedside with Dr. Vera present -Chart, labs and vitals reviewed: afebrile, no leuko, glucose is elevated -Advised patient to watch his diet while at home -Wound cleansed with betadine, dressed with adaptic, 4x4 gauze, kerlix and tubigrip stocking reapplied -Keep dressing c/d/i, ambulate with surgical shoe provided -Monitor for any signs of infection -Stable per podiatry for discharge home -[facility] 11/18 <Saeed Vera - Last Filed: 11/14/16 13:43> Objective - Vital Signs/Intake and Output Vital Signs (last 24 hours): Temp Pulse Resp BP Pulse Ox 98.1 F 73 20 145/91 H 97 11/14/16 08:09 11/14/16 10:45 11/14/16 08:09 11/14/16 10:45 11/14/16 08:09 Intake and Output: 11/14/16 11/14/16 06:59 18:59 Intake Total 840 Balance 840 - Labs Labs: 11/14/16 07:00 11/14/16 07:00 PT 10.7 Seconds (9.9-11.8) 11/12/16 06:45 INR 0.99 (0.93-1.08) 11/12/16 06:45 APTT 29.6 Seconds (23.7-30.8) 11/07/16 13:00 Attending/Attestation - Attestation I have personally seen and examined this patient.: Yes I have fully participated in the care of the patient.: Yes I have reviewed all pertinent clinical information, including history, physical exam and plan: Yes
--- NOTE | 2016-11-14 13:40 | CP.PCM.PN ---
Subjective - Date & Time of Evaluation Date of Evaluation: 11/14/16 Time of Evaluation: 10:15 - Subjective Subjective: Comfortable, afebrile, no pain in his left foot currently. Objective - Vital Signs/Intake and Output Vital Signs (last 24 hours): Temp Pulse Resp BP Pulse Ox 98.1 F 73 20 145/91 H 97 11/14/16 08:09 11/14/16 10:45 11/14/16 08:09 11/14/16 10:45 11/14/16 08:09 Intake and Output: 11/14/16 11/14/16 06:59 18:59 Intake Total 840 Balance 840 - Labs Labs: 11/14/16 07:00 11/14/16 07:00 PT 10.7 Seconds (9.9-11.8) 11/12/16 06:45 INR 0.99 (0.93-1.08) 11/12/16 06:45 APTT 29.6 Seconds (23.7-30.8) 11/07/16 13:00 - Constitutional Appears: Non-toxic, No Acute Distress - Head Exam Head Exam: NORMAL INSPECTION - ENT Exam ENT Exam: Mucous Membranes Moist - Neck Exam Neck Exam: absent: Lymphadenopathy, Meningismus - Respiratory Exam Respiratory Exam: Decreased Breath Sounds - Cardiovascular Exam Cardiovascular Exam: +S1, +S2 - GI/Abdominal Exam GI & Abdominal Exam: Soft. absent: Tenderness - Extremities Exam Additional comments: left foot with dressings in place Assessment and Plan - Assessment and Plan (Free Text) Plan: Assessment Infected left hallux ulcer, growing MSSA, beta hemolytic strep; gram negative bacilli on gram stain did not grow, S/P debridement and removal of foreign body Chronic renal failure DM HTN obesity with BMI 31 history of maculopapular rash Plan Bone scan only shows cellulitis we can switch Zosyn to Keflex for another 7 days with outpatient follow up at the wound center this coming Thursday
--- NOTE | 2016-11-14 16:33 | CP.PCM.DIS ---
<Rajinder Mendoza - Last Filed: 11/15/16 10:00> Provider - Provider Date of Admission: 11/07/16 15:29 Attending physician: Rajinder Mendoza MD Primary care physician: NO PRIMARY CARE PROVIDER Hospital Course - Lab Results Lab Results: Micro Results 11/12/16 18:47 Other: Please Indicate Gram Stain - Final 11/12/16 18:47 Other: Please Indicate Wound Culture - Preliminary NO GROWTH AFTER 24 HOURS 11/08/16 09:00 Blood-Venous Blood Culture - Final NO GROWTH AFTER 5 DAYS 11/08/16 09:00 Blood-Venous Gram Stain - Final TEST NOT PERFORMED 11/08/16 09:00 Blood-Venous Blood Culture - Final NO GROWTH AFTER 5 DAYS 11/08/16 09:00 Blood-Venous Gram Stain - Final TEST NOT PERFORMED 11/08/16 08:30 Toe Gram Stain - Final 11/08/16 08:30 Toe Wound Culture - Final Staphylococcus Aureus Beta Hemolytic Strep Group B Most Recent Lab Values WBC 6.6 10^3/ul (4.5-11.0) 11/14/16 07:00 RBC 3.88 10^6/uL (3.5-6.1) 11/14/16 07:00 Hgb 11.5 gm/dL (14.0-18.0) L 11/14/16 07:00 Hct 33.2 % (42.0-52.0) L 11/14/16 07:00 MCV 85.6 fL (80.0-105.0) 11/14/16 07:00 MCH 29.6 pg (25.0-35.0) 11/14/16 07:00 MCHC 34.6 g/dl (31.0-37.0) 11/14/16 07:00 RDW 13.2 % (11.5-14.5) 11/14/16 07:00 Plt Count 337 10^3/uL (120.0-450.0) 11/14/16 07:00 MPV 10.5 fl (7.0-11.0) 11/14/16 07:00 Gran % 68.0 % (50.0-68.0) 11/14/16 07:00 Lymph % (Auto) 18.5 % (22.0-35.0) L 11/14/16 07:00 Hays % (Auto) 9.5 % (1.0-6.0) H 11/14/16 07:00 Eos % (Auto) 3.8 % (1.5-5.0) 11/14/16 07:00 Baso % (Auto) 0.2 % (0.0-3.0) 11/14/16 07:00 Gran # 4.52 (1.4-6.5) 11/14/16 07:00 Lymph # 1.2 (1.2-3.4) 11/14/16 07:00 Hays # 0.6 (0.1-0.6) 11/14/16 07:00 Eos # 0.3 (0.0-0.7) 11/14/16 07:00 Baso # 0.01 K/mm3 (0.0-2.0) 11/14/16 07:00 PT 10.7 Seconds (9.9-11.8) 11/12/16 06:45 INR 0.99 (0.93-1.08) 11/12/16 06:45 APTT 29.6 Seconds (23.7-30.8) 11/07/16 13:00 Sodium 136 mmol/L (132-148) 11/14/16 07:00 Potassium 4.1 mmol/L (3.6-5.0) 11/14/16 07:00 Chloride 108 mmol/L (95-110) 11/14/16 07:00 Carbon Dioxide 22 mmol/L (21-33) 11/14/16 07:00 Anion Gap 10 (10-20) 11/14/16 07:00 BUN 15 mg/dL (7-21) 11/14/16 07:00 Creatinine 1.4 mg/dL (0.5-1.4) 11/14/16 07:00 Est GFR ( Amer) > 60 11/14/16 07:00 Est GFR (Non-Af Amer) 53 11/14/16 07:00 POC Glucose (mg/dL) 257 mg/dL (65-110) H 11/14/16 11:34 Random Glucose 183 mg/dL (70-110) H 11/14/16 07:00 Calcium 7.9 mg/dL (8.4-10.5) L 11/14/16 07:00 Total Bilirubin 0.5 mg/dL (0.2-1.3) 11/12/16 06:45 AST 48 U/L (15-59) 11/12/16 06:45 ALT 58 U/L (7-56) H 11/12/16 06:45 Alkaline Phosphatase 75 U/L (38-133) 11/12/16 06:45 Total Protein 6.5 g/dL (5.8-8.3) 11/12/16 06:45 Albumin 3.2 g/dL (3.0-4.8) 11/12/16 06:45 Globulin 3.3 gm/dL 11/12/16 06:45 Albumin/Globulin Ratio 1.0 (1.1-1.8) L 11/12/16 06:45 Alcohol, Quantitative < 10 mg/dL (0-10) 11/07/16 13:00 Discharge Plan - Discharge Medications Prescriptions: Cephalexin [Keflex] 500 mg PO Q6 #28 capsule - Follow Up Plan Condition: STABLE Disposition: HOME/ ROUTINE Instructions: Diabetes Mellitus Type 1 in Adults (DC), Acute Wound Care (GEN), Diabetic Foot Ulcers (GEN), Hypertension (GEN) Additional Instructions: Patient is medically stable for discharge. Please follow up with Dr. Beaulieu in regards to your foot in 1 week. Please follow up with [facility] within 1 week. Please take the antibiotic Keflex 500mg 4 times daily for 7 days. Thank you for allowing us to take part in your care. Referrals: Jeanette Beaulieu DPM [Staff Provider] - PCP,NO [Primary Care Provider] - Attending/Attestation - Attestation I have personally seen and examined this patient.: Yes I have fully participated in the care of the patient.: Yes I have reviewed all pertinent clinical information, including history, physical exam and plan: Yes Notes (Text): I have seen and examined patient at bedside. Briefly this is 51 year old male with history of DM-2, HTN, Obesity who got admitted for evaluation of left big toe pain and swelling s/p injury and found to have infected hallux ulcer suspicious for osteomyelitis however bone scan only shows osteomyelitis and its growing MSSA and beta hemolytic strep on zosyn. He will be discharged home on keflex for 7 days. Bone scan also revealed presence of metallic object in left foot. Patient underwent FB removal surgery which he tolerated well. Discussed with podiatry team who cleared the patient for discharge. Continue metformin and glipizide. Upon discharge patient will follow up in [facility] clinic and wound care center. Dr Rajinder Mendoza <Horacio Mahoney - Last Filed: 11/15/16 17:11> Provider - Provider Date of Admission: 11/07/16 15:29 Attending physician: Rajinder Mendoza MD Primary care physician: NO PRIMARY CARE PROVIDER Time Spent in preparation of Discharge (in minutes): 35 Diagnosis - Discharge Diagnosis (1) Ulcer Status: Acute Hospital Course - Lab Results Lab Results: Micro Results 11/12/16 18:47 Other: Please Indicate Gram Stain - Final 11/12/16 18:47 Other: Please Indicate Wound Culture - Preliminary NO GROWTH AFTER 24 HOURS 11/08/16 09:00 Blood-Venous Blood Culture - Final NO GROWTH AFTER 5 DAYS 11/08/16 09:00 Blood-Venous Gram Stain - Final TEST NOT PERFORMED 11/08/16 09:00 Blood-Venous Blood Culture - Final NO GROWTH AFTER 5 DAYS 11/08/16 09:00 Blood-Venous Gram Stain - Final TEST NOT PERFORMED 11/08/16 08:30 Toe Gram Stain - Final 11/08/16 08:30 Toe Wound Culture - Final Staphylococcus Aureus Beta Hemolytic Strep Group B Most Recent Lab Values WBC 6.6 10^3/ul (4.5-11.0) 11/14/16 07:00 RBC 3.88 10^6/uL (3.5-6.1) 11/14/16 07:00 Hgb 11.5 gm/dL (14.0-18.0) L 11/14/16 07:00 Hct 33.2 % (42.0-52.0) L 11/14/16 07:00 MCV 85.6 fL (80.0-105.0) 11/14/16 07:00 MCH 29.6 pg (25.0-35.0) 11/14/16 07:00 MCHC 34.6 g/dl (31.0-37.0) 11/14/16 07:00 RDW 13.2 % (11.5-14.5) 11/14/16 07:00 Plt Count 337 10^3/uL (120.0-450.0) 11/14/16 07:00 MPV 10.5 fl (7.0-11.0) 11/14/16 07:00 Gran % 68.0 % (50.0-68.0) 11/14/16 07:00 Lymph % (Auto) 18.5 % (22.0-35.0) L 11/14/16 07:00 Hays % (Auto) 9.5 % (1.0-6.0) H 11/14/16 07:00 Eos % (Auto) 3.8 % (1.5-5.0) 11/14/16 07:00 Baso % (Auto) 0.2 % (0.0-3.0) 11/14/16 07:00 Gran # 4.52 (1.4-6.5) 11/14/16 07:00 Lymph # 1.2 (1.2-3.4) 11/14/16 07:00 Hays # 0.6 (0.1-0.6) 11/14/16 07:00 Eos # 0.3 (0.0-0.7) 11/14/16 07:00 Baso # 0.01 K/mm3 (0.0-2.0) 11/14/16 07:00 PT 10.7 Seconds (9.9-11.8) 11/12/16 06:45 INR 0.99 (0.93-1.08) 11/12/16 06:45 APTT 29.6 Seconds (23.7-30.8) 11/07/16 13:00 Sodium 136 mmol/L (132-148) 11/14/16 07:00 Potassium 4.1 mmol/L (3.6-5.0) 11/14/16 07:00 Chloride 108 mmol/L (95-110) 11/14/16 07:00 Carbon Dioxide 22 mmol/L (21-33) 11/14/16 07:00 Anion Gap 10 (10-20) 11/14/16 07:00 BUN 15 mg/dL (7-21) 11/14/16 07:00 Creatinine 1.4 mg/dL (0.5-1.4) 11/14/16 07:00 Est GFR ( Amer) > 60 11/14/16 07:00 Est GFR (Non-Af Amer) 53 11/14/16 07:00 POC Glucose (mg/dL) 257 mg/dL (65-110) H 11/14/16 11:34 Random Glucose 183 mg/dL (70-110) H 11/14/16 07:00 Calcium 7.9 mg/dL (8.4-10.5) L 11/14/16 07:00 Total Bilirubin 0.5 mg/dL (0.2-1.3) 11/12/16 06:45 AST 48 U/L (15-59) 11/12/16 06:45 ALT 58 U/L (7-56) H 11/12/16 06:45 Alkaline Phosphatase 75 U/L (38-133) 11/12/16 06:45 Total Protein 6.5 g/dL (5.8-8.3) 11/12/16 06:45 Albumin 3.2 g/dL (3.0-4.8) 11/12/16 06:45 Globulin 3.3 gm/dL 11/12/16 06:45 Albumin/Globulin Ratio 1.0 (1.1-1.8) L 11/12/16 06:45 Alcohol, Quantitative < 10 mg/dL (0-10) 11/07/16 13:00 - Hospital Course Hospital Course: 51M ED with complaint of a foot ulcer on the anterior/inferior left great toe. Pt was unable to see this ulcer due to the fact that he could not see it and has decreased feeling in the distal half of his left foot compared to his right , despite having normal pulses. Xray of his foot showed metallic shard with concern of osteomyelitis. Podiatry was consulted and they were able to probe to bone. Bone scan did not show any evidence of osteomyelitis. Pt. underwent surgery to remove metal shard in foot and was discharged with continued antibiotics with a follow up appointment in one week with Podiatry. This is a brief account of his stay. Please see his chart for more details. - Date & Time of H&P Date of H&P: 11/14/16 Time of H&P: 08:10 Discharge Exam - Head Exam Head Exam: NORMAL INSPECTION - Eye Exam Eye Exam: EOMI, Normal appearance Pupil Exam: NORMAL ACCOMODATION - Neck Exam Neck exam: Full Rom - Respiratory Exam Respiratory Exam: Clear to PA & Lateral, NORMAL BREATHING PATTERN, UNREMARKABLE - Cardiovascular Exam Cardiovascular Exam: REGULAR RHYTHM, +S1, +S2. absent: JVD - GI/Abdominal Exam GI & Abdominal Exam: Normal Bowel Sounds, Soft, Unremarkable. absent: Tenderness - Extremities Exam Extremities exam: normal capillary refill, pedal pulses present Additional comments: Ulcer Left Great Toe, bandaged - Neurological Exam Neurological exam: Alert, CN II-XII Intact, Normal Gait, Oriented x3, Reflexes Normal - Psychiatric Exam Psychiatric exam: Normal Affect, Normal Mood - Skin Skin Exam: Dry, Intact, Normal Color, Warm
== END 2016-11-14 13:08 | disposition home or self-care (01) | DRG 7 ==
LOC: ED 11:13 → ERH 15:29 → 5RSO 17:59
PROVIDERS: ADMIT Internal Medicine; ATTEND Hospitalist
PROC: 0JBR0ZZ Excision of Left Foot Subcutaneous Tissue and Fascia, Open Approach (ICD-10-PCS; principal; 2016-11-08)
PROC: 0JCR0ZZ Extirpation of Matter from Left Foot Subcutaneous Tissue and Fascia, Open Approach (ICD-10-PCS; 2016-11-12)
DX: E11.42 Type 2 diabetes mellitus with diabetic polyneuropathy (principal); E11.621 Type 2 diabetes mellitus with foot ulcer; L97.529 Non-pressure chronic ulcer of other part of left foot with unspecified severity; L03.032 Cellulitis of left toe; S90.852A Superficial foreign body, left foot, initial encounter; E11.22 Type 2 diabetes mellitus with diabetic chronic kidney disease; E11.65 Type 2 diabetes mellitus with hyperglycemia; N18.9 Chronic kidney disease, unspecified; I12.9 Hypertensive chronic kidney disease with stage 1 through stage 4 chronic kidney disease, or unspecified chronic kidney disease; E66.9 Obesity, unspecified; Z68.31 Body mass index [BMI] 31.0-31.9, adult; Z79.84 Long term (current) use of oral hypoglycemic drugs; Z83.3 Family history of diabetes mellitus; Z82.49 Family history of ischemic heart disease and other diseases of the circulatory system

== ENCOUNTER 2018-03-16 08:55 | Emergency (ER) | payer MEDICAID, OTHER ==
[2018-03-16] MEDS ORDERED: Insulin Regular 1 UNITS/0.01 ML ML ONE (10:49)
[2018-03-16 11:14] LABS: HEMOGLOBIN 13.4 g/dL (14.0-18.0); MEAN CELL VOLUME 85.1 fl (80.0-105.0); MEAN CORPUSCULAR HEMOGLOBIN 29.8 pg (25.0-35.0); MEAN CORPUSCULAR HGB CONC 35.1 g/dl (31.0-37.0); MEAN PLATELET VOLUME 11.5 fl (7.0-11.0); RBC 4.49 10^6/uL (3.5-6.1); RED CELL DISTRIBUTION WIDTH 12.8 % (11.5-14.5)
[2018-03-16 11:20] LABS: INR 0.95; PARTIAL THROMBOPLASTIN TIME 27.1 Seconds (25.1-36.5); PROTHROMBIN TIME 10.9 SECONDS (9.4-12.5)
[2018-03-16 11:41] LABS: ALB/GLOB RATIO 1.2 (1.1-1.8); ALBUMIN 3.5 g/dL (3.0-4.8); ALT/SGPT 19 U/L (7-56); AST/SGOT 12 U/L (17-59); BLOOD UREA NITROGEN 26 mg/dL (7-21); CALCIUM 8.7 mg/dL (8.4-10.5); GFR NON-AFRICAN AMERICAN 42
[2018-03-16 11:42] LABS: TROPONIN I < 0.01 ng/mL
[2018-03-16 11:52] LABS: URINE BILIRUBIN NEGATIVE (NEGATIVE); URINE BLOOD TRACE-LYSED (NEGATIVE); URINE GLUCOSE (UA) >=1000 mg/dL (NEGATIVE); URINE LEUKOCYTE ESTERASE NEGATIVE Leu/uL (NEGATIVE); URINE PROTEIN 100 mg/dL (<30 mg/dL); URINE UROBILINOGEN 0.2 E.U./dL (<1 E.U./dL)
[2018-03-16 11:53] LABS: URINE APPEARANCE CLEAR (CLEAR); URINE COLOR YELLOW (YELLOW)
[2018-03-16 12:07] LABS: URINE BACTERIA MOD (NEG); URINE EPITHELIAL CELLS 0 - 2 /hpf (0-5); URINE WBC 0 - 2 /hpf (0-6)
[2018-03-16 13:59] VITALS: BMI 31.4
[2018-03-16] MEDS ORDERED: Insulin Regular 1 UNITS/0.01 ML ML IVP STA (14:20)
[2018-03-16 14:52] VITALS: BP 180/96; PULSE 90; RESP 15; TEMP 97.2; O2SAT 95
--- NOTE | 2018-03-17 16:16 | CARD ---
APPROVED REPORT Date of service: 03/16/2018 EKG Measurement Heart [id number] <Conclusion> Normal sinus rhythm Normal ECG
== END 2018-03-16 14:49 | disposition home or self-care (01) ==
LOC: ED 08:55
DX: Z76.0 Encounter for issue of repeat prescription (principal); I10 Essential (primary) hypertension; E11.65 Type 2 diabetes mellitus with hyperglycemia

== ENCOUNTER 2018-10-09 08:23 | Emergency (ER) | payer OTHER ==
[2018-10-09 08:30] VITALS: BMI 30.3
[2018-10-09 08:51] VITALS: RESP 18
--- NOTE | 2018-10-09 09:12 | ED PDOC ---
Arrival/HPI - General Historian: Patient - History of Present Illness Narrative History of Present Illness (Text): 10/09/18 09:10 Patient is a 53 year old male with past medical history of DM and HTN presenting with chief complaint of dysuria which began two days ago. Patient states he is able to start urinating, however his stream would be interrupted. Admits to mild burning with urination. For the past month patient has been waking up 4-5x per night to urinate. Denies hematuria, fever, chills, back pain, nausea, vomiting, chest pain, shortness of breath, abdominal pain, diarrhea. Time/Duration: < week Symptom Onset: Sudden Symptom Course: Unchanged Severity Level: Mild <Jasson Madrigal - Last Filed: 10/09/18 11:20> <Jesus Frank - Last Filed: 10/09/18 11:25> - General Chief Complaint: Male Genitourinary Time Seen by Provider: 10/09/18 08:29 Past Medical History - Provider Review Nursing Documentation Reviewed: Yes - Infectious Disease Hx of Infectious Diseases: None - Tetanus Immunization Tetanus Immunization: Up to Date - Cardiac Hx Cardiac Disorders: Yes Hx Hypertension: Yes - Pulmonary Hx Respiratory Disorders: No - Neurological Hx Neurological Disorder: No - HEENT Hx HEENT Disorder: No - Renal Hx Renal Disorder: No - Endocrine/Metabolic Hx Diabetes Mellitus Type 2: Yes - Hematological/Oncological Hx Blood Transfusions: No Hx Blood Transfusion Reaction: No - Integumentary Other/Comment: left great toe partial amputation healed dry brown skin, generalized red raised and multiple brown sport to entire body except face c/o constantitch, left outer ankle dry brown wound, eccymosis to calfs - Musculoskeletal/Rheumatological Hx Musculoskeletal Disorders: No - Gastrointestinal Hx Gastrointestinal Disorders: No - Genitourinary/Gynecological Hx Genitourinary Disorders: No - Psychiatric Hx Emotional Abuse: No Hx Physical Abuse: No Hx Substance Use: No - Past Surgical History Past Surgical History: No Previous - Surgical History Hx Musculoskeletal Surgery: Yes (toe) - Anesthesia Hx Anesthesia: Yes Hx Anesthesia Reactions: No Hx Malignant Hyperthermia: No - Suicidal Assessment Feels Threatened In Home Enviroment: No <Jasson Madrigal - Last Filed: 10/09/18 11:20> Family/Social History - Physician Review Nursing Documentation Reviewed: Yes Family/Social History: No Known Family HX Smoking Status: Never Smoked Hx Alcohol Use: Yes Frequency of alcohol use: Socially Hx Substance Use: No Hx Substance Use Treatment: No <Jasson Madrigal - Last Filed: 10/09/18 11:20> Allergies/Home Meds <Jasson Madrigal - Last Filed: 10/09/18 11:20> <Jesus Frank - Last Filed: 10/09/18 11:25> Allergies/Adverse Reactions: Allergies oxycodone [From Percocet] Allergy (Intermediate, Verified 10/09/18 08:51) SWELLING facial swelling Home Medications: Home Meds Medication Instructions Recorded Confirmed MetFORMIN [glucoPHAGE] 1,000 mg PO DAILY 10/09/18 10/09/18 amLODIPine [Norvasc] 10 mg PO DAILY 10/09/18 10/09/18 Review of Systems - Physician Review All systems were reviewed & negative as marked: Yes - Review of Systems Respiratory: Normal Cardiovascular: Normal Gastrointestinal: Normal Genitourinary Male: Dysuria. absent: Hematuria <Jasson Madrigal - Last Filed: 10/09/18 11:20> Physical Exam Vital Signs Reviewed: Yes Vital Signs Temp Pulse Resp BP Pulse Ox 10/09/18 08:30 97.8 F 115 H 18 130/79 96 Temperature: Afebrile Blood Pressure: Normal Pulse: Tachycardic Respiratory Rate: Normal Appearance: Positive for: Well-Appearing, Comfortable Pain Distress: None Mental Status: Positive for: Alert and Oriented X 3 - Systems Exam Head: Present: Atraumatic, Normocephalic Extroacular Muscles: Present: EOMI Conjunctiva: Present: Normal Respiratory/Chest: Present: Clear to Auscultation, Good Air Exchange. No: Respiratory Distress, Accessory Muscle Use Cardiovascular: Present: Regular Rate and Rhythm, Normal S1, S2 Abdomen: Present: Normal Bowel Sounds. No: Tenderness, Distention Lower Extremity: Present: Normal Inspection. No: Edema Neurological: Present: GCS=15, CN II-XII Intact, Speech Normal Skin: Present: Warm, Dry, Normal Color Psychiatric: Present: Alert, Oriented x 3 <Jasson Madrigal - Last Filed: 10/09/18 11:20> Vital Signs Temp Pulse Resp BP Pulse Ox 10/09/18 08:30 97.8 F 115 H 18 130/79 96 <Jesus Frank - Last Filed: 10/09/18 11:25> Medical Decision Making ED Course and Treatment: 10/09/18 09:12 Impression: 53 year old male with dysuria Plan: - CBC, CMP - UA - Reassess and disposition Prior Visits: Notes and results from previous visits were reviewed. Progress Notes: 10/09/18 09:24 Fingerstick glucose 313 10/09/18 10:[address] abdomen and pelvis to r/o kidney or ureteral stones. <Jasson Madrigal - Last Filed: 10/09/18 11:20> ED Course and Treatment: 10/09/18 11:24 patient feels well and ready to go home. patient has been educated on current Ct findings and understands importance to follow up with urology. - Lab Interpretations Lab Results: Total Bilirubin 0.6 mg/dL (0.2-1.3) 10/09/18 09:00 AST 12 U/L (17-59) L 10/09/18 09:00 ALT < 6 U/L (7-56) L 10/09/18 09:00 Alkaline Phosphatase 96 U/L (38-126) 10/09/18 09:00 Total Protein 6.8 g/dL (5.8-8.3) 10/09/18 09:00 Albumin 3.4 g/dL (3.0-4.8) 10/09/18 09:00 Globulin 3.4 gm/dL 10/09/18 09:00 Albumin/Globulin Ratio 1.0 (1.1-1.8) L 10/09/18 09:00 Urine Color Yellow (YELLOW) 10/09/18 08:50 Urine Appearance Cloudy (CLEAR) 10/09/18 08:50 Urine pH 6.0 (4.7-8.0) 10/09/18 08:50 Ur Specific Procious 1.020 (1.005-1.035) 10/09/18 08:50 Urine Protein >=300 mg/dL (<30 mg/dL) H 10/09/18 08:50 Urine Glucose (UA) 250 mg/dL (NEGATIVE) H 10/09/18 08:50 Urine Ketones Negative mg/dL (NEGATIVE) 10/09/18 08:50 Urine Blood Large (NEGATIVE) H 10/09/18 08:50 Urine Nitrate Negative (NEGATIVE) 10/09/18 08:50 Urine Bilirubin Negative (NEGATIVE) 10/09/18 08:50 Urine Urobilinogen 0.2 E.U./dL (<1 E.U./dL) 10/09/18 08:50 Ur Leukocyte Esterase Moderate Lamin/uL (NEGATIVE) H 10/09/18 08:50 Urine RBC 25 - 30 /hpf (0-2) H 10/09/18 08:50 Urine WBC 10 - 15 /hpf (0-6) H 10/09/18 08:50 Ur Epithelial Cells Many /hpf (0-5) H 10/09/18 08:50 - RAD Interpretation Radiology Orders: 10/09/18 10:12 ABDOMEN & PELVIS [ABD & PELVIS W/O PO OR IV CONT] [CT] Stat - Medication Orders Current Medication Orders: Discontinued Medications Sodium Chloride (Sodium Chloride 0.9%) 1,000 mls @ 999 mls/hr IV .Q1H1M STA Stop: 10/09/18 10:24 Last Admin: 10/09/18 09:29 Dose: 999 mls/hr eMAR Start Stop Document 10/09/18 09:29 GMI (Rec: 10/09/18 09:29 GMI [id number]) Intravenous Solution Start Date 10/09/18 Start Time 09:29 Insulin Human Regular (Humulin R) 6 units IVP STAT STA Stop: 10/09/18 09:25 Last Admin: 10/09/18 09:58 Dose: 6 units MAR Blood Glucose Document 10/09/18 09:58 GMI (Rec: 10/09/18 09:59 GMI [id number]) Blood Glucose Finger Stick Blood Glucose (70-120) 313 IVP Administration Document 10/09/18 09:58 GMI (Rec: 10/09/18 09:59 GMI [id number]) Charges for Administration # of IVP Administrations 1 <Jesus Frank - Last Filed: 10/09/18 11:25> Disposition/Present on Arrival - Present on Arrival Any Indicators Present on Arrival: No History of DVT/PE: No History of Uncontrolled Diabetes: No Urinary Catheter: No History of Decub. Ulcer: No History Surgical Site Infection Following: None - Disposition Have Diagnosis and Disposition been Completed?: Yes Disposition Time: 11:21 Patient Plan: Discharge <Jasson Madrigal - Last Filed: 10/09/18 11:20> <Jesus Frank - Last Filed: 10/09/18 11:25> - Disposition Diagnosis: Ureterocele Disposition: HOME/ ROUTINE Condition: STABLE Additional Instructions: Follow up with your primary medical doctor and urologist within one week Resume your home medications as prescribed Return to ED if symptoms worsen Referrals: Cheko Marlow MD [Staff Provider] - Follow up with primary [facility] at [facility] [Outside] - Follow up with primary Forms: [email or web address] (Portuguese)
[2018-10-09] MEDS ORDERED: Insulin Regular 1 UNITS/0.01 ML ML IVP STA (09:24)
[2018-10-09] MEDS ORDERED: Sodium Chloride 0.9% 1,000 ML IV STA (09:24)
[2018-10-09 09:26] LABS: BASO # 0.01 K/mm3 (0.0-2.0); BASO % 0.1 % (0.0-3.0); EOS # 0.1 (0.0-0.7); EOS % 0.7 % (1.5-5.0); HEMOGLOBIN 12.5 g/dL (14.0-18.0); LYMPH % 9.2 % (22.0-35.0); MEAN CELL VOLUME 85.2 fl (80.0-105.0); MEAN CORPUSCULAR HEMOGLOBIN 28.9 pg (25.0-35.0); MEAN PLATELET VOLUME 10.8 fl (7.0-11.0); MONO % 9.4 % (1.0-6.0); RBC 4.32 10^6/uL (3.5-6.1); RED CELL DISTRIBUTION WIDTH 12.9 % (11.5-14.5)
[2018-10-09 09:52] LABS: URINE APPEARANCE CLOUDY (CLEAR); URINE BILIRUBIN NEGATIVE (NEGATIVE); URINE BLOOD LARGE (NEGATIVE); URINE COLOR YELLOW (YELLOW); URINE GLUCOSE (UA) 250 mg/dL (NEGATIVE); URINE LEUKOCYTE ESTERASE MODERATE Leu/uL (NEGATIVE); URINE PROTEIN >=300 mg/dL (<30 mg/dL); URINE UROBILINOGEN 0.2 E.U./dL (<1 E.U./dL)
[2018-10-09 09:56] LABS: URINE EPITHELIAL CELLS MANY /hpf (0-5); URINE RBC 25 - 30 /hpf (0-2)
[2018-10-09 09:56] LABS: ALBUMIN 3.4 g/dL (3.0-4.8); ALT/SGPT < 6 U/L (7-56); AST/SGOT 12 U/L (17-59); BLOOD UREA NITROGEN 32 mg/dL (7-21); CALCIUM 8.2 mg/dL (8.4-10.5); GFR NON-AFRICAN AMERICAN 24
--- NOTE | 2018-10-09 11:12 | CT ---
Date of service: 10/09/2018 PROCEDURE: CT Abdomen and Pelvis without intravenous contrast HISTORY: r/o kidney or ureteral stone COMPARISON: 11/04/2016 CT TECHNIQUE: Without contrast.. Contrast dose: Radiation dose: Total exam DLP = 1170.69 mGy-cm. This CT exam was performed using one or more of the following dose reduction techniques: Automated exposure control, adjustment of the mA and/or kV according to patient size, and/or use of iterative reconstruction technique. FINDINGS: LOWER THORAX: Unremarkable. LIVER: Unremarkable. No gross lesion or ductal dilatation. GALLBLADDER AND BILE DUCTS: Unremarkable. PANCREAS: Unremarkable. No gross lesion or ductal dilatation. SPLEEN: Unremarkable. ADRENALS: Unremarkable. No mass. KIDNEYS AND URETERS: There is chronic dilatation of the ureters and renal collecting systems left greater than right. 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 There is a slight increase in the degree of dilatation especially on the left. There is some periureteral stranding. There are no stones VASCULATURE: Unremarkable. No aortic aneurysm. No aortic atherosclerotic calcification or mural plaque present. BOWEL: Unremarkable. No obstruction. No gross mural thickening. APPENDIX: Unremarkable. Normal appendix. PERITONEUM: Unremarkable. No free fluid. No free air. LYMPH NODES: Unremarkable. No enlarged lymph nodes. BLADDER: Unremarkable. REPRODUCTIVE: Unremarkable. BONES: No acute fracture. OTHER FINDINGS: None. IMPRESSION: There is chronic dilatation of the ureters and renal collecting systems left greater than right. 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 There is a slight increase in the degree of dilatation especially on the left. There is some periureteral stranding. There are no stones
[2018-10-09 11:29] VITALS: BP 134/76; TEMP 98; O2SAT 98
[2018-10-09 11:47] VITALS: PULSE 100
== END 2018-10-09 11:45 | disposition home or self-care (01) ==
LOC: ED 08:23
DX: N28.89 Other specified disorders of kidney and ureter (principal); I10 Essential (primary) hypertension; E11.9 Type 2 diabetes mellitus without complications
CPT/HCPCS: 74176; 80053; 81001; 82948; 85025; 87086; 96374; 99284; J7030

== ENCOUNTER 2018-10-11 08:44 | Outpatient (CLI) | payer OTHER | END 2018-10-11 08:45 | disposition home or self-care (01) | LOC: LAB 08:44 ==

== ENCOUNTER 2018-10-28 11:05 | Outpatient (CLI) | payer OTHER | END 2018-10-28 11:06 | disposition home or self-care (01) | LOC: LAB 11:05 ==